=== PATIENT | male | born 1970 ===

== ENCOUNTER 2021-08-23 11:54 | Inpatient (IN) | payer OTHER ==
[2021-08-23] MEDS ORDERED: ONDANSETRON 4 MG ODT TAB PO PRN (18:45)
[2021-08-23] MEDS ORDERED: ALBUTEROL 2.5 MG/3 ML NEBU IH PRN (18:45)
[2021-08-23] MEDS ORDERED: hydrALAZINE 20 MG/1 ML INJ IV PRN (18:45)
[2021-08-24] MEDS: oxyCODONE /ACETAMINOPHEN 5-325MG TAB PO PRN (01:33)
[2021-08-24 07:10] LABS: BUN/Creatinine Ratio 29; Blood Urea Nitrogen 23 mg/dL (9-20); Calcium 8.7 mg/dL (8.4-10.2); Hemolysis Index 0
[2021-08-24 08:44] LABS: Hemoglobin 12.1 gm/dl (11.8-15.2); Mean Corpuscular HGB Conc 34 % (32-34); Mean Corpuscular Volume 78 fl (84-94); Platelet Count 199 K/mm3 (140-440); Red Blood Count 4.62 M/mm3 (3.65-5.03); Red Cell Distribution Width 14.7 % (13.2-15.2)
--- NOTE | 2021-08-24 09:45 | History and Physical Report ---
History of Present Illness Date: 08/24/21 Date of admission: 08/24/21 00:33 Chief Complaint: Right MCA CVA with left hemiparesis History of present illness: 50-year-old male who presented to the outside hospital on 08/17 with complaints of spasms and left-sided facial droop accompanied by slurred speech. Initially his symptoms were considered to be related to an MS exacerbation and he was provided with steroids and discharged home. However he returned same day to the ER for repeated issues with continued facial droop. Further work-up with MRI showed an acute right MCA territory lacunar infarct involving the putamen, periventricular white matter and a portion of the posterior limb of the internal capsule. Given his age, hypercoagulable work-up was performed. Patient has moderate dysarthria and dysphagia. He was placed on a soft mechanical diet with thin liquids. Medication should be crushed in pure patient was started on secondary stroke prevention. He tolerated therapy well and was recommended for acute inpatient rehabilitation. After the patient was medically stabilized they were transferred for further rehabilitation. All available medical records have been reviewed. Plan of care was discussed with patient. He also has a history of multiple sclerosis with neuropathy and continues taking Lyrica at baseline as well as baclofen for occasional spasms. The patient ambulates with a cane or walker depending on his ability for the day. He has recently received a motorized wheelchair however is awaiting moving into a home with a mask from the main in order to be able to utilize that. Patient does state that he has issues with constipation. He just retired recently after 20+ years in the [employer] and does have symptoms associated with PTSD, discussed use of praises in for his vivid nightmares however at this point he is wanting to defer starting this medication. Will monitor for any effect his recovery and address again if needed. Past History Past Medical History: other (Multiple sclerosis, PTSD, asthma) Past Surgical History: No surgical history Social history: , lives with family (In a two-story house, uses a cane and a walker to ambulate, however wheelchair recently received, moving into two- story home with master on the main in the beginning of August.), full code, other (Retired from the [employer] after 20+ years). denies: smoking, alcohol abuse, prescription drug abuse Family history: cancer Medications and Allergies Allergies Allergy/AdvReac Type Severity Reaction Status Date / Time Penicillins Allergy Itching Verified 08/24/21 00:41 Home Medications Medication Instructions Recorded Confirmed Last Taken Type AtorvaSTATin [Lipitor] 40 mg PO QHS 08/24/21 08/24/21 Unknown History Baclofen [Lioresal] 10 mg PO TID 08/24/21 08/24/21 Unknown History Docusate Sodium [Colace CAP] 100 mg PO DAILY 08/24/21 08/24/21 Unknown History Ferrous Sulfate [Iron 325 MG] 325 mg PO DAILY 08/24/21 08/24/21 Unknown History Meloxicam [Mobic] 15 mg PO DAILY 08/24/21 08/24/21 Unknown History Pantoprazole [Protonix TAB] 40 mg PO DAILY 08/24/21 08/24/21 Unknown History Potassium Chloride [Klor-Con] 20 meq PO QDAY 08/24/21 08/24/21 Unknown History Symbicort 160-4.5 Mcg Inhaler 160 mcg INHALATION BID 08/24/21 08/24/21 Unknown History Active Meds: Active Medications Acetaminophen (Acetaminophen 325 Mg Tab) 650 mg PO Q6H PRN PRN Reason: Pain MILD(1-3)/Fever >100.5/PLATT Albuterol (Albuterol 2.5 Mg/3 Ml Nebu) 2.5 mg IH Q4HRT PRN PRN Reason: Shortness Of Breath Albuterol (Albuterol 2.5 Mg/3 Ml Nebu) 2.5 mg IH TIDRT MALIA Arformoterol Tartrate (Arformoterol 15 Mcg/2 Ml Nebu) 15 mcg IH Q12HRT [facility] Aspirin (Aspirin Ec 81 Mg Tab) 81 mg PO QDAY [facility] Atorvastatin Calcium (Atorvastatin 40 Mg Tab) 40 mg PO QHS [facility] Baclofen (Baclofen 10 Mg Tab) 10 mg PO TID [facility] Bisacodyl (Bisacodyl 10 Mg Rect Supp) 10 mg DE QDAY PRN PRN Reason: Constipation Budesonide (Budesonide 0.25 Mg/2 Ml Nebu) 0.25 mg IH Q12HRT [facility] Cholecalciferol (Cholecalciferol (Vit D3) 1000 Unit (25 Mcg) Tab) 1,000 unit PO DAILY [facility] Clopidogrel Bisulfate (Clopidogrel 75 Mg Tab) 75 mg PO QDAY [facility] Docusate Sodium (Docusate Sodium 100 Mg Cap) 100 mg PO BID MALIA Ferrous Sulfate (Ferrous Sulfate 325 Mg Tab) 325 mg PO QDAY [facility] Hydralazine HCl (Hydralazine 20 Mg/1 Ml Inj) 10 mg IV Q4HR PRN PRN Reason: Hypertension Meloxicam (Meloxicam 7.5 Mg Tab) 15 mg PO QDAY [facility] Ondansetron HCl (Ondansetron 4 Mg Odt Tab) 4 mg PO Q8H PRN PRN Reason: Nausea And Vomiting Oxycodone/Acetaminophen (Oxycodone /Acetaminophen 5-325mg Tab) 1 tab PO Q6H PRN PRN Reason: Pain, Moderate (4-6) Last Admin: 08/24/21 01:33 Dose: 1 tab Documented by: Pantoprazole Sodium (Pantoprazole 40 Mg Tab) 40 mg PO QDAC [facility] Polyethylene Glycol (Polyethylene Glycol 3350 17 Gm Powder) 17 gm PO QDAY PRN PRN Reason: Constipation Potassium Chloride (Potassium Chloride Er 20 Meq Tab) 20 meq PO QDAY MALIA Review of Systems All systems: negative (ROS negative for 10 systems except as noted below with pertinent positives and negatives.) Constitutional: fatigue, no fever Ears, nose, mouth and throat: dysphagia, voice changes, no decreased hearing Cardiovascular: lightheadedness, no chest pain, no palpitations, no ra pid/irregular heart beat, no edema Respiratory: no cough with sputum, no shortness of breath Gastrointestinal: constipation, no abdominal pain, no nausea, no vomiting, no diarrhea Genitourinary Male: no dysuria Musculoskeletal: arm numbness/tingling, leg numbness/tingling, gait dysfunction Integumentary: no rash, no pruritis Neurological: paralysis, weakness, parathesias, gait dysfunction, spasticity, other (Orthostatic dizziness) Psychiatric: sleep disturbances (Nightmares associated with PTSD), no memory loss Exam - Exam Narrative exam: MUSCULOSKELETAL SPECIALTY EXAM CONSTITUTIONAL: Well developed, well nourished, appropriately groomed. RIGHT hand dominant. LYMPHATIC: No appreciable abnormalities palpable in neck RESPIRATORY: Clear to auscultation bilaterally, no increased work of breathing CARDIOVASCULAR: Regular Rate/ Rhythm, no swelling, edema or tenderness in BUE or BLE. Pulses palpable in all extremities. All extremities warm. GI: + bowel sounds, soft, NTTP, nondistended. INTEGUMENTARY: Normal, no lesion, rash, masses or bruising noted in extremities. MUSCULOSKELETAL: BUE and BLE normal without defect, crepitus, subluxation, effusion, arthritic changes or TTP. R 4+/5 L 1/5 for shoulder abduction, 3/5 at the biceps/triceps, 2/5 ventilating engineer, 0/5 lower extremity ROM within normal limits on the right, decreased on the left Tone normal on the right, increased on the left with spasticity. MAS 4/5 LLE and 3/5 LUE today NEURO: CN II : Visual de leon full to confrontation CN II, III : PERRL CN III, IV, : EOMI CN V : Facial sensation intact CN VII : Left facial droop CN VIII : Hearing intact to finger rustle CN IX, X : Palate/uvula elevate midline, phonation normal CN XI : Intact shoulder shrug and head rotation CN XII : Tongue protrudes to the left Sensation intact in all extremities without extinction. Reflexes 2+ on the right and 3+ on the left at biceps, brachioradialis and patella. Sustained clonus at left ankle. Coordination intact in RUE, no dysmetria noted. No tremor noted in 4 extremities. Naming and repetition intact. Follows 2 step commands. Aphasia not improved Dysarthria present Dysphagia present Neglect not appreciated POSTURE and GAIT: Sitting posture good. Balance and gait deferred until seen with therapy. PSYCH: Alert, oriented x3, affect appears euthymic. Insight appears intact. - Constitutional Vitals: Vital Signs - 12hr 08/24/21 08/24/21 08/24/21 00:41 00:45 03:41 Temperature 97.4 F L 97.5 F L Pulse Rate 64 58 L Respiratory 16 16 Rate Blood Pressure 98/59 Blood Pressure 111/81 [Right] O2 Sat by Pulse 97 97 97 Oximetry - Labs CBC & Chem 7: 08/24/21 06:39 08/24/21 06:39 Labs: Laboratory Results - last 72 hr 08/24/21 08/24/21 06:39 06:39 WBC 9.5 RBC 4.62 Hgb 12.1 Hct 36.0 MCV 78 L MCH 26 L MCHC 34 RDW 14.7 Plt Count 199 Sodium 139 Potassium 4.0 Chloride 105.9 Carbon Dioxide 26 Anion Gap 11 BUN 23 H Creatinine 0.8 Estimated GFR > 60 BUN/Creatinine Ratio 29 Glucose 82 Calcium 8.7 Assessment and Plan Assessment and plan: Patient was assessed and evaluated for Acute Inpatient Rehab Unit. Due to the patients above-mentioned medical complexity, along with decreased functional mobility and self care, this patient continues to require and be appropriate for a comprehensive, multidisciplinary [id number] rehabilitation program. These needs cannot be met in an outpatient or other less intensive setting. The patient would continue to benefit from skilled therapy intervention for at least 3 hours per day, five days a week, with techn iques specific to the needs of the patient to improve function, activities of daily living, and reintegration into the community. The patient continues to require: -- OT to improve ROM, self-care, and learn use of adaptive equipment -- PT to improve strength and balance, functional transfers, and ambulation with energy conservation techniques to improve functional mobility -- DRYING CAN WORKER to address cognitive deficits and swallowing ability -- 24 hour RN to ensure and prevent skin breakdown, promote progressive independence while ensuring safety, ensure education regarding medications, and incorporation of the rehabilitation at the bedside -- 24 hour Devops Solutions Architect to coordinate this interdisciplinary program, and to manage/prevent complications as a result of the patients medical comorbidities. -Plan of care by day 4 -Weekly team conferences With such a program, there is a reasonable certainty that the goals individualized for this patient can be achieved within the specified length of stay. MCA CVA with left nondominant hemiparesis: Continue Secondary Stroke Prevention (Antithrombotic, Statin (Goal LDL-C <70), BP control (Goal <140/90), GLU control (Goal A1c <7), and lifestyle modification). Monitor for recurrent stroke or post-stroke recrudescence. Continue neuromotor therapy as above. Family training when available. Monitor for post stroke depression, cognitive deficits, seizure, dysphagia, aphasia, shoulder hand syndrome, sensory deficits, spasticity, bowel/bladder deficits, sleep disturbance, vision deficits and DVT. Prognosis for recovery and Secondary Stroke Prevention discussed. Follow up with Neurology. No driving until cleared by Neurologist. Dysarthria: Continue speech therapy to improve patient's ability to better enunciate words and to communicate clearly. Patient currently is understandable. Dysphagia: Continue speech therapy in order to assess patient's ability to improve his ability to swallow and advance diet as able. MBS and e-stim as needed. Spasticity: Continue home baclofen. Look to increase if needed. Continue stretching and teach patient on home stretching program in order to improve ability for range of motion Left foot drop: Continue working with the patient with physical therapy. Will consider utilizing AFO prior to discharge if patient is able to ambulate and he does not recover ability to dorsiflex. Neuropathy: Patient did not tolerate gabapentin previously which has been stopped. Is currently taking Lyrica and will adjust dose as needed. PTSD: Patient states that he is stopped seeing psychiatrist at [facility] and feels like his PTSD is fairly well controlled. He does state that he continues to have nightmares at night which do disturb his sleep at times. We did discuss the use of prazosin however the patient does want to defer starting this currently. We will continue to monitor the patient for any signs of PTSD or nightmares interfering with his recovery and will address the issue again as needed. Constipation: Patient states that he can typically go a week or so without a bowel movement. Has recently had 1. Will schedule bowel meds with hold for loose stools. Asthma: Albuterol tablets not available, have scheduled and as needed nebulizers available. Symbicort is also not on formulary but have ordered our in-house substitute. We will look to reduce this if able. Respiratory consult in place. Multiple sclerosis: Patient recently diagnosed after jail from the [employer]. Receives injections at the [facility]. Noted some neuropathy, weakness, and altered sensation from the MS prior to the stroke. Volume depletion: Patient states that he is not eating or drinking as much as he normally does. BUN is slightly elevated with an elevated BUN/creatinine ratio. Patient was symptomatic this morning with dizziness. Encouraged the patient to improve his oral intake. We will give gentle IV fluids over the weekend and will monitor for improvement. Scratch look to avoid IV fluids if possible by us ing increased amounts of oral hydration in the future. ADL dysfunction: OT will work on improving ability to perform ADLs (including assistive devices) to increase independence and decrease caregiver burden and improve functional transfers and mobility training. Difficulty walking: PT will work on gait training and proper use of assistive devices and advance as appropriate to use of stairs and outside ambulation on uneven surfaces. Unsteadiness on feet: PT will work on improving static and dynamic sitting and standing balance as well as proper use of assistive devices to decrease risk of falls. Abnormality of gait: PT will work to improve safety and efficiency of gait through neuromotor training and gait training along with instruction on proper use of assistive devices. Muscle weakness: PT & OT will work on strengthening exercises to improve functional strength including mixture of closed and open kinetic chain exercises. Debility: PT & OT will work on improving overall functional status to improve participation with ADLs, mobility and social involvement. Fatigue: PT & OT will work on improving endurance through aerobic exercises and therapeutic activity while monitoring patients tolerance for activity and vital signs as needed. DVT ppx: Lovenox Pain: Continue physical modalities in therapy and pain medications as needed to achieve functional pain control. Sleep: Monitor and address as needed. Bowel: Monitor and address as needed. Appetite: Monitor and address as needed. Discharge planning: Pending therapy progress and care plan meeting. Will continue discussion with therapy team, SW, patient and family. Restrictions/ Precautions: Falls, aspiration WB status: FWB Functional Hx: ADLs: Needed some assistance Cognition: Independent Mobility: Cane/RW/motorized wheelchair Barriers to Discharge: Decreased mobility and ability to perform self care, yris nce deficits, weakness Estimated Length of Stay: 1418 days Discharge Destination: Home with family POST ADMISSION PHYSICIAN EVALUATION I have examined the patient and find that functional status, medical condition and appropriateness for IR[facility] admission are essentially unchanged from those described in the preadmission screening. Will monitor for worsening neurologic dysfunction, post stroke depression, shoulder-hand syndrome, spasticity, contracture, DVT/PE, bowel and bladder complications and complications due to PTSD, MS, asthma and electrolyte abnormalities. Will attempt to avoid occurr ence of these issues or treat them if they present themselves.
[2021-08-24] MEDS: FERROUS SULFATE 325 MG TAB PO SCH (10:43)
[2021-08-24] MEDS: BACLOFEN 10 MG TAB PO SCH ×3 (10:43→21:00)
[2021-08-24] MEDS: DOCUSATE SODIUM 100 MG CAP PO SCH ×2 (10:43→21:00)
[2021-08-24] MEDS: ASPIRIN EC 81 MG TAB PO SCH (10:43)
[2021-08-24] MEDS: MELOXICAM 7.5 MG TAB PO SCH (10:43)
[2021-08-24] MEDS: CLOPIDOGREL 75 MG TAB PO SCH (10:43)
[2021-08-24] MEDS: POTASSIUM CHLORIDE ER 20 MEQ TAB PO SCH (10:44)
[2021-08-24] MEDS: PANTOPRAZOLE 40 MG TAB PO SCH (10:44)
[2021-08-24] MEDS: CHOLECALCIFEROL (VIT D3) 1000 UNIT (25 mcg) TAB PO SCH (10:44)
[2021-08-24] MEDS ORDERED: SODIUM CHLORIDE 0.9% 1000 ML 1,000 ML IV SCH (12:00)
[2021-08-24] MEDS: ENOXAPARIN 40 MG/0.4 ML INJ SUB-Q SCH (12:36)
[2021-08-24] MEDS: ARFORMOTEROL 15 MCG/2 ML NEBU IH SCH (14:18)
[2021-08-24] MEDS: ALBUTEROL 2.5 MG/3 ML NEBU IH SCH (14:19)
[2021-08-24] MEDS: BUDESONIDE 0.25 MG/2 ML NEBU IH SCH (14:19)
[2021-08-25] MEDS: ARFORMOTEROL 15 MCG/2 ML NEBU IH SCH ×2 (07:19→10:22)
[2021-08-25] MEDS: BUDESONIDE 0.25 MG/2 ML NEBU IH SCH ×2 (07:20→10:23)
[2021-08-25] MEDS: ALBUTEROL 2.5 MG/3 ML NEBU IH SCH ×3 (07:20→16:04)
[2021-08-25] MEDS: BACLOFEN 10 MG TAB PO SCH ×3 (10:59→20:50)
[2021-08-25] MEDS: POTASSIUM CHLORIDE ER 20 MEQ TAB PO SCH (10:59)
[2021-08-25] MEDS: CHOLECALCIFEROL (VIT D3) 1000 UNIT (25 mcg) TAB PO SCH (10:59)
[2021-08-25] MEDS: CLOPIDOGREL 75 MG TAB PO SCH (10:59)
[2021-08-25] MEDS: DOCUSATE SODIUM 100 MG CAP PO SCH ×2 (10:59→22:32)
[2021-08-25] MEDS: MELOXICAM 7.5 MG TAB PO SCH (10:59)
[2021-08-25] MEDS: PANTOPRAZOLE 40 MG TAB PO SCH (10:59)
[2021-08-25] MEDS: FERROUS SULFATE 325 MG TAB PO SCH (11:00)
[2021-08-25] MEDS: ENOXAPARIN 40 MG/0.4 ML INJ SUB-Q SCH (11:00)
[2021-08-25] MEDS: ASPIRIN EC 81 MG TAB PO SCH (11:00)
[2021-08-26 07:14] LABS: Hematocrit 35.4 % (35.5-45.6); Hemoglobin 12.1 gm/dl (11.8-15.2); Mean Corpuscular HGB Conc 34 % (32-34); Mean Corpuscular Volume 78 fl (84-94); Platelet Count 199 K/mm3 (140-440); Red Blood Count 4.53 M/mm3 (3.65-5.03); Red Cell Distribution Width 14.8 % (13.2-15.2)
[2021-08-26] MEDS: ARFORMOTEROL 15 MCG/2 ML NEBU IH SCH ×2 (07:23→07:43)
[2021-08-26] MEDS: ALBUTEROL 2.5 MG/3 ML NEBU IH SCH ×3 (07:24→16:25)
[2021-08-26] MEDS: BUDESONIDE 0.25 MG/2 ML NEBU IH SCH ×2 (07:24→07:43)
[2021-08-26 07:34] LABS: Blood Urea Nitrogen 21 mg/dL (9-20); Calcium 8.9 mg/dL (8.4-10.2); Hemolysis Index 8
[2021-08-26 07:42] LABS: BUN/Creatinine Ratio 30
[2021-08-26] MEDS: BACLOFEN 10 MG TAB PO SCH ×3 (10:00→22:46)
--- NOTE | 2021-08-26 10:22 | Progress Note ---
Subjective Date of service: 08/26/21 Principal diagnosis: Right MCA CVA with left hemiparesis Interval history: 50-year-old male who presented to the outside hospital on 08/17 with complaints of spasms and left-sided facial droop accompanied by slurred speech. Initially his symptoms were considered to be related to an MS exacerbation and he was provided with steroids and discharged home. However he returned same day to the ER for repeated issues with continued facial droop. Further work-up with MRI showed an acute right MCA territory lacunar infarct involving the putamen, periventricular white matter and a portion of the posterior limb of the internal capsule. Given his age, hypercoagulable work-up was performed. Patient has moderate dysarthria and dysphagia. He was placed on a soft mechanical diet with thin liquids. Medication should be crushed in pure patient was started on secondary stroke prevention. He tolerated therapy well and was recommended for acute inpatient rehabilitation. After the patient was medically stabilized they were transferred for further rehabilitation. All available medical records have been reviewed. Plan of care was discussed with patient. He also has a history of multiple sclerosis with neuropathy and continues taking Lyrica at baseline as well as baclofen for occasional spasms. The patient ambulates with a cane or walker depending on his ability for the day. He has recently received a motorized wheelchair however is awaiting moving into a home with a mask from the main in order to be able to utilize that. Patient does state that he has issues with constipation. He just retired recently after 20+ years in the [employer] and does have symptoms associated with PTSD, discussed use of praises in for his vivid nightmares however at this point he is wanting to defer starting this medication. Will monitor for any effect his recovery and address again if needed. Interval History: Patient is participating in therapy and making reasonable progress. Taking rest breaks as needed. +BM. Denies pain, palpitations, dyspnea, cough, N/V, or joint pain. CVA: Continue secondary stroke prevention, therapy. Monitor for any signs or sym ptoms of stroke recrudescence, shoulder-hand syndrome, worsening spasticity, post stroke depression, sleep disturbance. Patient seemed a little distraught this morning that he was unable to control the left side of his body but again reassured him that recovery will not be a short-term issue. He does have weakness from prior with his MS which will complicate healing somewhat. Dysarthria: Continue speech therapy to improve patient's ability to enunciate and communicate clearly. Dysphagia: Continue speech therapy with MBS/e-stim as needed in order to improve patient's ability to safely swallow and advance diet. Continue modified diet currently. Spasticity: Continue baclofen which patient was on previously for spasticity due to MS. Unclear as to how much of the spasticity is due to the CVA versus MS, patient does state that he had some issues previously with MS but this is worse currently. Left foot drop: Patient will likely need AFO if we are able to get him to the point of walking. Patient does have an electric wheelchair and it is unlikely that prolonged walking would be something that he would undertake going forward at this point. Neuropathy: Stable so far on current dose of Lyrica. Continue to monitor and adjust if needed. Constipation: Improving with bowel meds. Continue to monitor and adjust as Asthma: Seems to be doing okay currently. We will continue medications and adjust as needed. MS: Patient uncertain of type however states that he is [facility] Seems to be a fairly aggressive type with the quickness of his deconditioning. Will concentrate on energy conservation with therapy in order to improve his overall quality of life once he returns home. ADL mobility dysfunction: Continue therapy to improve patient's ability to perform self-care and ADLs as well as improve his mobility and transfers All records, vitals, labs and medications were reviewed. No other issues per patient, nursing or therapy. Objective - Exam Narrative Exam: MUSCULOSKELETAL SPECIALTY EXAM CONSTITUTIONAL: Well developed, well nourished, appropriately groomed. RIGHT hand dominant. RESPIRATORY: Clear to auscultation bilaterally, no increased work of breathing CARDIOVASCULAR: Regular Rate/ Rhythm, no swelling, edema or tenderness in BUE or BLE. All extremities warm. GI: + bowel sounds, soft, NTTP, nondistended. INTEGUMENTARY: Normal, no lesion, rash, masses or bruising noted in extremities. MUSCULOSKELETAL: BUE and BLE normal without defect, crepitus, subluxation, effusion, arthritic changes or TTP. R 4+/5 L 1/5 for shoulder abduction, 3/5 at the biceps/triceps, 2/5 java web services developer, 0/5 lower extremity ROM within normal limits on the right, decreased on the left Tone normal on the right, increased on the left with spasticity. MAS 4/5 LLE and 3/5 LUE NEURO: CN VII : Left facial droop CN XI : Impaired left shoulder shrug CN XII : Tongue protrudes to the left Sensation intact in all extremities without extinction. Sustained clonus at left ankle. No tremor noted in 4 extremities. Naming and repetition intact. Follows 2 step commands. Aphasia not appreciated Dysarthria present Dysphagia present Neglect not appreciated POSTURE and GAIT: Sitting posture fair. Balance and gait deferred until seen with therapy. PSYCH: Alert, oriented x3, affect appears euthymic. Insight appears intact. - Constitutional Vitals: Vital Signs - 12hr 08/26/21 08/26/21 01:45 08:13 Temperature 97.9 F 98.1 F Pulse Rate 65 62 Respiratory 16 18 Rate Blood Pressure 95/64 Blood Pressure 107/67 [Left] O2 Sat by Pulse 95 95 Oximetry - Allied health notes Allied health notes reviewed: nursing, PT, OT FIMS assessment as documented by PT/OT/ST: Locomotion- walk/wheelchair Ambulation Distance 0 - Labs CBC & Chem 7: 08/26/21 06:42 08/26/21 06:42 Labs: Laboratory Results - last 72 hr 08/24/21 08/24/21 08/26/21 06:39 06:39 06:42 WBC 9.5 7.5 RBC 4.62 4.53 Hgb 12.1 12.1 Hct 36.0 35.4 L MCV 78 L 78 L MCH 26 L 27 L MCHC 34 34 RDW 14.7 14.8 Plt Count 199 199 Sodium 139 Potassium 4.0 Chloride 105.9 Carbon Dioxide 26 Anion Gap 11 BUN 23 H Creatinine 0.8 Estimated GFR > 60 BUN/Creatinine Ratio 29 Glucose 82 Calcium 8.7 08/26/21 06:42 WBC RBC Hgb Hct MCV MCH MCHC RDW Plt Count Sodium 139 Potassium 4.2 Chloride 106.8 Carbon Dioxide 28 Anion Gap 8 BUN 21 H Creatinine 0.7 L Estimated GFR > 60 BUN/Creatinine Ratio 30 Glucose 83 Calcium 8.9 Assessment and Plan MCA CVA with left nondominant hemiparesis: Continue Secondary Stroke Prevention (Antithrombotic, Statin (Goal LDL-C <70), BP control (Goal <140/90), GLU control (Goal A1c <7), and lifestyle modification). Monitor for recurrent stroke or post-stroke recrudescence. Continue neuromotor therapy as above. Family training when available. Monitor for post stroke depression, cognitive deficits, seizure, dysphagia, aphasia, shoulder hand syndrome, sensory deficits, spasticity, bowel/bladder deficits, sleep disturbance, vision deficits and DVT. Prognosis for recovery and Secondary Stroke Prevention discussed. Follow up with Neurology. No driving until cleared by Neurologist. Dysarthria: Continue speech therapy to improve patient's ability to better enunciate words and to communicate clearly. Patient currently is understandable. Dysphagia: Continue speech therapy in order to assess patient's ability to improve his ability to swallow and advance diet as able. MBS and e-stim as needed. Spasticity: Continue home baclofen. Look to increase if needed. Continue stretching and teach patient on home stretching program in order to improve ability for range of motion Left foot drop: Continue working with the patient with physical therapy. Will consider utilizing AFO prior to discharge if patient is able to ambulate and he does not recover ability to dorsiflex. Neuropathy: Patient did not tolerate gabapentin previously which has been stopped. Is currently taking Lyrica and will adjust dose as needed. PTSD: Patient states that he is stopped seeing psychiatrist at the [facility] and feels like his PTSD is fairly well controlled. He does state that he continues to have nightmares at night which do disturb his sleep at times. We did discuss the use of prazosin however the patient does want to defer starting this currently. We will continue to monitor the patient for any signs of PTSD or nightmares interfering with his recovery and will address the issue again as needed. Constipation: Patient states that he can typically go a week or so without a bowel movement. Has recently had 1. Will schedule bowel meds with hold for loose stools. Asthma: Albuterol tablets not available, have scheduled and as needed nebulizers available. Symbicort is also not on formulary but have ordered our in-house substitute. We will look to reduce this if able. Respiratory consult in place. Multiple sclerosis: Patient recently diagnosed after fdc from the [employer]. [facility] Noted some neuropathy, weakness, and altered sensation from the MS prior to the stroke. Volume depletion: Patient states that he is not eating or drinking as much as he normally does. BUN is slightly elevated with an elevated BUN/creatinine ratio. Patient was symptomatic this morning with dizziness. Encouraged the patient to improve his oral intake. We will give gentle IV fluids over the weekend and will monitor for improvement. Scratch look to avoid IV fluids if possible by using increased amounts of oral hydration in the future. ADL dysfunction: OT will work on improving ability to perform ADLs (including assistive devices) to increase independence and decrease caregiver burden and improve functional transfers and mobility training. Difficulty walking: PT will work on gait training and proper use of assistive devices and advance as appropriate to use of stairs and outside ambulation on uneven surfaces. Unsteadiness on feet: PT will work on improving static and dynamic sitting and standing balance as well as proper use of assistive devices to decrease risk of falls. Abnormality of gait: PT will work to improve safety and efficiency of gait through neuromotor training and gait training along with instruction on proper use of assistive devices. Muscle weakness: PT & OT will work on strengthening exercises to improve functional strength including mixture of closed and open kinetic chain exercises. Debility: PT & OT will work on improving overall functional status to improve participation with ADLs, mobility and social involvement. Fatigue: PT & OT will work on improving endurance through aerobic exercises and therapeutic activity while monitoring patients tolerance for activity and vital signs as needed. DVT ppx: Lovenox Pain: Continue physical modalities in therapy and pain medications as needed to achieve functional pain control. Sleep: Monitor and address as needed. Bowel: Monitor and address as needed. Appetite: Monitor and address as needed. Discharge planning: Pending therapy progress and care plan meeting. Will c ontinue discussion with therapy team, SW, patient and family. Restrictions/ Precautions: Falls, aspiration WB status: FWB Functional Hx: ADLs: Needed some assistance Cognition: Independent Mobility: Cane/RW/motorized wheelchair Barriers to Discharge: Decreased mobility and ability to perform self care, balance deficits, weakness Estimated Length of Stay: 1418 days Discharge Destination: Home with family
[2021-08-26] MEDS: DOCUSATE SODIUM 100 MG CAP PO SCH ×2 (11:20→22:00)
[2021-08-26] MEDS: FERROUS SULFATE 325 MG TAB PO SCH (11:24)
[2021-08-26] MEDS: MELOXICAM 7.5 MG TAB PO SCH (11:25)
[2021-08-26] MEDS: ASPIRIN EC 81 MG TAB PO SCH (11:25)
[2021-08-26] MEDS: POTASSIUM CHLORIDE ER 20 MEQ TAB PO SCH (11:25)
[2021-08-26] MEDS: CHOLECALCIFEROL (VIT D3) 1000 UNIT (25 mcg) TAB PO SCH (11:25)
[2021-08-26] MEDS: PANTOPRAZOLE 40 MG TAB PO SCH (11:26)
[2021-08-26] MEDS: ENOXAPARIN 40 MG/0.4 ML INJ SUB-Q SCH (11:26)
[2021-08-26] MEDS: CLOPIDOGREL 75 MG TAB PO SCH (11:26)
[2021-08-27] MEDS: ARFORMOTEROL 15 MCG/2 ML NEBU IH SCH ×2 (08:13→09:32)
[2021-08-27] MEDS: ALBUTEROL 2.5 MG/3 ML NEBU IH SCH ×3 (08:13→14:16)
[2021-08-27] MEDS: BUDESONIDE 0.25 MG/2 ML NEBU IH SCH ×2 (08:13→09:35)
--- NOTE | 2021-08-27 09:39 | Progress Note ---
Subjective Date of service: 08/27/21 Principal diagnosis: Right MCA CVA with left hemiparesis Interval history: 50-year-old male who presented to the outside hospital on 08/17 with complaints of spasms and left-sided facial droop accompanied by slurred speech. Initially his symptoms were considered to be related to an MS exacerbation and he was provided with steroids and discharged home. However he returned same day to the ER for repeated issues with continued facial droop. Further work-up with MRI showed an acute right MCA territory lacunar infarct involving the putamen, periventricular white matter and a portion of the posterior limb of the internal capsule. Given his age, hypercoagulable work-up was performed. Patient has moderate dysarthria and dysphagia. He was placed on a soft mechanical diet with thin liquids. Medication should be crushed in pure patient was started on secondary stroke prevention. He tolerated therapy well and was recommended for acute inpatient rehabilitation. After the patient was medically stabilized they were transferred for further rehabilitation. All available medical records have been reviewed. Plan of care was discussed with patient. He also has a history of multiple sclerosis with neuropathy and continues taking Lyrica at baseline as well as baclofen for occasional spasms. The patient ambulates with a cane or walker depending on his ability for the day. He has recently received a motorized wheelchair however is awaiting moving into a home with a mask from the main in order to be able to utilize that. Patient does state that he has issues with constipation. He just retired recently after 20+ years in the [employer] and does have symptoms associated with PTSD, discussed use of praises in for his vivid nightmares however at this point he is wanting to defer starting this medication. Will monitor for any effect his recovery and address again if needed. Interval History: Patient is participating in therapy and making reasonable progress. Taking rest breaks as needed. +BM. Denies pain, palpitations, dyspnea, cough, N/V, or joint pain. CVA: Continue secondary stroke prevention, therapy. Monitor for any signs or sym ptoms of stroke recrudescence, shoulder-hand syndrome, worsening spasticity, post stroke depression, sleep disturbance. He does have weakness from prior with his MS which will complicate healing somewhat. Dysarthria: Speech has cleared up and BREAKDOWN WORKER has deferred adding to caseload since he is close to baseline now. Dysphagia: BREAKDOWN WORKER evaluated speech and is cleared for regular diet with no sides of aspiration noted. We will continue to monitor for any changes going forward. Spasticity: Continue baclofen which patient was on previously for spasticity due to MS. Unclear as to how much of the spasticity is due to the CVA versus MS, patient does state that he had some issues previously with MS but this is worse currently. Left foot drop: Patient will likely need AFO if we are able to get him to the point of walking. Patient does have an electric wheelchair and it is unlikely that prolonged walking would be something that he would undertake going forward at this point. Neuropathy: Stable so far on current dose of Lyrica. Continue to monitor and adjust if needed. Constipation: Improving with bowel meds. Continue to monitor and adjust as Asthma: Seems to be doing okay currently. We will continue medications and adjust as needed. MS: Patient uncertain of type however states that he is receiving injections from his physicians at the [facility]. Seems to be a fairly aggressive type with the quickness of his deconditioning. Will concentrate on energy conservation with therapy in order to improve his overall quality of life once he returns home. ADL mobility dysfunction: Continue therapy to improve patient's ability to perform self-care and ADLs as well as improve his mobility and transfers All records, vitals, labs and medications were reviewed. No other issues per patient, nursing or therapy. Patient discussed during team conference. Participating and making progress. Has poor trunk control and weakness, some of which may be pre-existing. We will continue to work with the patient to improve his ability to perform ADLs and self-care as well as remain mobile in the bed and for transfers. Would like to get the patient to the point that he is able to ambulate for short distances in the household if at all possible. We have the ability to keep the patient for up to 30 days, at this point will likely work with him for another 2 to 3 weeks depending on his continued progress. Objective - Exam Narrative Exam: MUSCULOSKELETAL SPECIALTY EXAM CONSTITUTIONAL: Well developed, well nourished, appropriately groomed. RIGHT hand dominant. RESPIRATORY: Clear to auscultation bilaterally, no increased work of breathing CARDIOVASCULAR: Regular Rate/ Rhythm, no swelling, edema or tenderness in BUE or BLE. All extremities warm. GI: + bowel sounds, soft, NTTP, nondistended. INTEGUMENTARY: Normal, no lesion, rash, masses or bruising noted in extremities. MUSCULOSKELETAL: BUE and BLE normal without defect, crepitus, subluxation, effusion, arthritic changes or TTP. R 4+/5 L 1/5 for shoulder abduction, 3/5 at the biceps/triceps, 2/5 edge bonder, 0/5 lower extremity ROM within normal limits on the right, decreased on the left Tone normal on the right, increased on the left with variable spasticity. MAS 3/5 LLE and 2/5 LUE NEURO: CN VII : Left facial droop CN XI : Impaired left shoulder shrug CN XII : Tongue protrudes to the left Sensation intact in all extremities without extinction. Sustained clonus at left ankle. No tremor noted in 4 extremities. Naming and repetition intact. Follows 2 step commands. Aphasia not appreciated Dysarthria present Dysphagia present Neglect not appreciated POSTURE and GAIT: Sitting posture fair. Balance and gait deferred until seen with therapy. PSYCH: Alert, oriented x3, affect appears euthymic. Insight appears intact. - Constitutional Vitals: Vital Signs - 12hr 08/26/21 08/27/21 08/27/21 22:00 03:51 08:11 Temperature 98.1 F 98.0 F Pulse Rate 63 63 Respiratory 18 18 18 Rate Blood Pressure 100/70 90/57 O2 Sat by Pulse 98 96 97 Oximetry - Allied health notes Allied health notes reviewed: nursing, PT, ST, OT FIMS assessment as documented by PT/OT/ST: Locomotion- walk/wheelchair Ambulation Distance 0 - Labs CBC & Chem 7: 08/26/21 06:42 08/26/21 06:42 Labs: Laboratory Results - last 72 hr 08/26/21 08/26/21 06:42 06:42 WBC 7.5 RBC 4.53 Hgb 12.1 Hct 35.4 L MCV 78 L MCH 27 L MCHC 34 RDW 14.8 Plt Count 199 Sodium 139 Potassium 4.2 Chloride 106.8 Carbon Dioxide 28 Anion Gap 8 BUN 21 H Creatinine 0.7 L Estimated GFR > 60 BUN/Creatinine Ratio 30 Glucose 83 Calcium 8.9 Assessment and Plan MCA CVA with left nondominant hemiparesis: Continue Secondary Stroke Prevention (Antithrombotic, Statin (Goal LDL-C <70), BP control (Goal <140/90), GLU control (Goal A1c <7), and lifestyle modification). Monitor for recurrent stroke or post-stroke recrudescence. Continue neuromotor therapy as above. Family training when available. Monitor for post stroke depression, cognitive deficits, seizure, dysphagia, aphasia, shoulder hand syndrome, sensory deficits, spasticity, bowel/bladder deficits, sleep disturbance, vision deficits and DVT. Prognosis for recovery and Secondary Stroke Prevention discussed. Follow up with Neurology. No driving until cleared by Neurologist. Dysarthria: BREAKDOWN WORKER has signed off, patient seems to be close to baseline. Dysphagia: BREAKDOWN WORKER is signed off, patient's dysphagia has improved and he is able to tolerate regular foods without any signs of aspiration. Continue to monitor for aspiration and reconsult if needed. Spasticity: Continue home baclofen. Look to increase if needed. Continue stretching and teach patient on home stretching program in order to improve ability for range of motion Left foot drop: Continue working with the patient with physical therapy. Will consider utilizing AFO prior to discharge if patient is able to ambulate and he does not recover ability to dorsiflex. Neuropathy: Patient did not tolerate gabapentin previously which has been stopped. Is currently taking Lyrica and will adjust dose as needed. PTSD: Patient states that he is stopped seeing psychiatrist at the [facility] and feels like his PTSD is fairly well controlled. He does state that he continues to have nightmares at night which do disturb his sleep at times. We did discuss the use of prazosin however the patient does want to defer starting this currently. We will continue to monitor the patient for any signs of PTSD or nightmares interfering with his recovery and will address the issue again as needed. Constipation: Patient states that he can typically go a week or so without a katia wel movement. Has recently had 1. Will schedule bowel meds with hold for loose stools. Asthma: Albuterol tablets not available, have scheduled and as needed nebulizers available. Symbicort is also not on formulary but have ordered our in-house substitute. We will look to reduce this if able. Respiratory consult in place. Multiple sclerosis: Patient recently diagnosed after jail from the [employer]. [facility] Noted some neuropathy, weakness, and altered sensation from the MS prior to the stroke. Volume depletion: Patient states that he is not eating or drinking as much as he normally does. BUN is slightly elevated with an elevated BUN/creatinine ratio. Patient was symptomatic this morning with dizziness. Encouraged the patient to improve his oral intake. We will give gentle IV fluids over the weekend and will monitor for improvement. Scratch look to avoid IV fluids if possible by using increased amounts of oral hydration in the future. ADL dysfunction: OT will work on improving ability to perform ADLs (including assistive devices) to increase independence and decrease caregiver burden and improve functional transfers and mobility training. Difficulty walking: PT will work on gait training and proper use of assistive devices and advance as appropriate to use of stairs and outside ambulation on uneven surfaces. Unsteadiness on feet: PT will work on improving static and dynamic sitting and standing balance as well as proper use of assistive devices to decrease risk of falls. Abnormality of gait: PT will work to improve safety and efficiency of gait through neuromotor training and gait training along with instruction on proper use of assistive devices. Muscle weakness: PT & OT will work on strengthening exercises to improve functional strength including mixture of closed and open kinetic chain exercises. Debility: PT & OT will work on improving overall functional status to improve participation with ADLs, mobility and social involvement. Fatigue: PT & OT will work on improving endurance through aerobic exercises and therapeutic activity while monitoring patients tolerance for activity and vital signs as needed. DVT ppx: Lovenox Pain: Continue physical modalities in therapy and pain medications as needed to achieve functional pain control. Sleep: Monitor and address as needed. Bowel: Monitor and address as needed. Appetite: Monitor and address as needed. Discharge planning: Pending therapy progress and care plan meeting. Will continue discussion with therapy team, SW, patient and family. Restrictions/ Precautions: Falls, aspiration WB status: FWB Functional Hx: ADLs: Needed some assistance Cognition: Independent Mobility: Cane/RW/motorized wheelchair Barriers to Discharge: Decreased mobility and ability to perform self care, balance deficits, weakness Estimated Length of Stay: 1418 days Discharge Destination: Home with family
[2021-08-27] MEDS: BACLOFEN 10 MG TAB PO SCH ×3 (10:16→21:35)
[2021-08-27] MEDS: FERROUS SULFATE 325 MG TAB PO SCH (10:16)
[2021-08-27] MEDS: DOCUSATE SODIUM 100 MG CAP PO SCH ×3 (10:16→22:59)
[2021-08-27] MEDS: CHOLECALCIFEROL (VIT D3) 1000 UNIT (25 mcg) TAB PO SCH (10:16)
[2021-08-27] MEDS: ENOXAPARIN 40 MG/0.4 ML INJ SUB-Q SCH (10:16)
[2021-08-27] MEDS: PANTOPRAZOLE 40 MG TAB PO SCH (10:16)
[2021-08-27] MEDS: ASPIRIN EC 81 MG TAB PO SCH (10:16)
[2021-08-27] MEDS: MELOXICAM 7.5 MG TAB PO SCH (10:16)
[2021-08-27] MEDS: CLOPIDOGREL 75 MG TAB PO SCH (10:17)
--- NOTE | 2021-08-27 10:33 | IRU Plan of Care ---
Interdisciplinary Plan of Care - IP IRU INTERDISCIPLINARY PLAN: [facility] Inpatient Rehab Unit Plan of Care IRU Interdisciplinary Care Plan Start: 08/24/21 01:09 Freq: Status: Active Protocol: Document 08/27/21 09:37 AB (Rec: 08/27/21 09:43 AB [id number]) Interdisciplinary Problem List Interdisciplinary Problem List Interdisciplinary Problem List Impaired Eating/Swallowing, Query Text:Answers will Trigger Problems Impaired Bathing/Grooming, and Outcomes on Worklist. Impaired Dressing,Impaired Mobility,Impaired Transfers, Impaired Toileting,Impaired Safety IRU Interdisciplinary Care Plan Therapy Services Therapy Services Will Include: Physical Therapy,Occupational Query Text:Patient will be seen for a Therapy minimum of 3 hours of daily therapy 5 out of 7 days a week. Therapy intensity may be adjusted within a 7 consecutive day period to effectively serve the individual needs of the patient. Treatment Frequency/Intensity/Duration Treatment Frequency 3 hours/ day Treatment Intensity 5x/ week Treatment Duration 10-14 days Problem Area: Eating/Swallowing Eating/Swallowing Outcomes Feed Self Eating/Swallowing Interventions ADL Training,Patient/Caregiver Education Problem Area: Bathing/Grooming Bathing/Grooming Outcomes Improve [place] w/ Grooming,Improve [place] w/ Bathing Bathing/Grooming Interventions ADL Training,Use of Assistive Devices,Therapeutic Exercise, Therapeutic Activity, Neuromuscular Re-Education, Balance Work,Activity Tolerance Work,Patient/ Caregiver Education Problem Area: Dressing Dressing Outcomes Improve [place] w/ UB Dressing,Improve [place] w/ LB Dressing Dressing Interventions ADL Training,Use of Assistive Devices,Neuromuscular Re- Education,Therapeutic Exercise ,Balance Work,Modalities, Patient/Caregiver Education Problem Area: Mobility Mobility Outcomes Improve [place] w/ Bed Mobility,Improve [place] w/ Ambulation,Improve [place] w/ Stairs/Curb, Improve [place] w/ Wheelchair Mobility Interventions Therapeutic Exercise, Neuromuscular Re-Ed.,Activity Tolerance Work,Modalities,Use of Assistive Devices,Patient/ Caregiver Education,Bed Mobility Work,Gait Training,W/ C Mobility Work Problem Area: Transfers Transfers Outcomes Improve [place] w/ Bed Transfers,Improve [place] w/ Toilet Transfers,Improve [place] w/ Tub/Shower Transfers,Improve [place] w/ Car Transfers Transfers Interventions Transfer Training,Therapeutic Exercise,Neuromuscular Re- Education,Activity Tolerance Work,Use of Assistive Devices, Patient/Caregiver Education Problem Area: Bowel/Bladder Managment Bowel/Bladder Outcomes Continent of Bladder Bowel/Bladder Interventions Bladder Training Program,Use of Assistive Devices Problem Area: Toileting Toileting Outcomes Improve [place] w/ Toileting Toileting Interventions ADL Training,Use of Assistive Devices,Patient/Caregiver Education Problem Area: Nutrition Nutrition Outcomes Nutrition Interventions Problem Area: Comprehension Comprehension Outcomes Comprehension Interventions Problem Area: Expression Expression Outcomes Expression Interventions Problem Area: Problem Solving Problem Solving Outcomes Problem Solving Interventions Problem Area: Memory Memory Outcomes Memory Interventions Problem Area: Pain Management Pain Management Outcomes Pain Management Interventions Problem Area: Knowledge Deficits Knowledge Deficits Outcomes Knowledge Deficits Interventions Problem Area: Skin/Tissue Integrity Skin/Tissue Integrity Outcomes Skin/Tissue Integrity Interventions Problem Area: Social Interaction Social Interaction Outcomes Social Interaction Interventions Problem Area: Adjustment to Disability Adjustment to Disability Outcomes Adjustment to Disability Interventions Problem Area: Discharge Concerns Discharge Concerns Outcomes Discharge w/ Necessary Equipment,Have Home Health/ Outpatient Services Discharge Concerns Interventions Discharge Planning,Equipment Assessment, Acquisition and Placement,Family/Caregiver Training Problem Area: Community Reintegration Community Reintegration Outcomes Community Reintegration Interventions Problem Area: Home Management Home Management Outcomes Home Management Interventions Problem Area: Safety Safety Outcomes Demonstrate Good Safety w/ Transfers/Mobility Safety Interventions Identify Fall Risk Problem Area: Medication Education Medication Education Outcomes Medication Education Interventions Problem Area: Diabetes Education Diabetes Education Outcomes Diabetes Education Interventions Problem Area: Oxygenation Oxygenation Outcomes Oxygenation Interventions Problem Area: Cardiovascular Cardiovascular Outcomes Cardiovascular Interventions Physician Only Medical Prognosis and Rehabilitation good prognosis, fair rehab potential Potential (Completed by Physician) This plan of care has been developed based on the findings from the pre- admission assessment, post admission physician evaluation, information gathered from the assessments from all therapy disciplines and other pertinent clinicians. The plan of care has been reviewed and discussed in collaboration with the interdisciplinary team. The plan of care will be reviewed and updated at least weekly.
[2021-08-27] MEDS: POTASSIUM CHLORIDE ER 20 MEQ TAB PO SCH (13:29)
[2021-08-28] MEDS: BUDESONIDE 0.25 MG/2 ML NEBU IH SCH ×3 (03:45→20:07)
[2021-08-28] MEDS: ARFORMOTEROL 15 MCG/2 ML NEBU IH SCH ×3 (03:45→20:06)
[2021-08-28] MEDS: ALBUTEROL 2.5 MG/3 ML NEBU IH SCH (03:45)
[2021-08-28] MEDS: BACLOFEN 10 MG TAB PO SCH ×3 (08:17→21:00)
--- NOTE | 2021-08-28 09:18 | Progress Note ---
Subjective Date of service: 08/28/21 Principal diagnosis: Right MCA CVA with left hemiparesis Interval history: 50-year-old male who presented to the outside hospital on 08/17 with complaints of spasms and left-sided facial droop accompanied by slurred speech. Initially his symptoms were considered to be related to an MS exacerbation and he was provided with steroids and discharged home. However he returned same day to the ER for repeated issues with continued facial droop. Further work-up with MRI showed an acute right MCA territory lacunar infarct involving the putamen, periventricular white matter and a portion of the posterior limb of the internal capsule. Given his age, hypercoagulable work-up was performed. Patient has moderate dysarthria and dysphagia. He was placed on a soft mechanical diet with thin liquids. Medication should be crushed in pure patient was started on secondary stroke prevention. He tolerated therapy well and was recommended for acute inpatient rehabilitation. After the patient was medically stabilized they were transferred for further rehabilitation. All available medical records have been reviewed. Plan of care was discussed with patient. He also has a history of multiple sclerosis with neuropathy and continues taking Lyrica at baseline as well as baclofen for occasional spasms. The patient ambulates with a cane or walker depending on his ability for the day. He has recently received a motorized wheelchair however is awaiting moving into a home with a mask from the main in order to be able to utilize that. Patient does state that he has issues with constipation. He just retired recently after 20+ years in the [employer] and does have symptoms associated with PTSD, discussed use of praises in for his vivid nightmares however at this point he is wanting to defer starting this medication. Will monitor for any effect his recovery and address again if needed. Interval History: Patient is participating in therapy and making reasonable progress. Taking rest breaks as needed. +BM. Denies pain, palpitations, dyspnea, cough, N/V, or joint pain. Overall, patient does have good outlook and attitude and is working hard with therapy to initiate improvement. Had a prolonged discussion with the yesterday concerning the patient's condition, appears that he is little worse than baseline but previous to the stroke was not able to do much walking. CVA: Continue secondary stroke prevention, therapy. Monitor for any signs or symptoms of stroke recrudescence, shoulder-hand syndrome, worsening spasticity, post stroke depression, sleep disturbance. He does have weakness from prior with his MS which will complicate healing somewhat. Spasticity: Continue baclofen which patient was on previously for spasticity due to MS. Unclear as to how much of the spasticity is due to the CVA versus MS, patient does state that he had some issues previously with MS but this is worse currently. Left foot drop: Patient will likely need AFO if we are able to get him to the point of walking. Patient does have an electric wheelchair and it is unlikely that prolonged walking would be something that he would undertake going forward at this point. Neuropathy: Stable so far on current dose of Lyrica. Continue to monitor and adjust if needed. Constipation: Improving with bowel meds. Continue to monitor and adjust as needed. Patient is having bowel movements and has requested bowel meds to be held due to decreased ability to control Asthma: Seems to be doing okay currently. We will continue medications and adjust as needed. MS: Patient uncertain of type however states that he is receiving [facility]. Seems to be a fairly aggressive type with the quickness of his deconditioning. Will concentrate on energy conservation with therapy in order to improve his overall quality of life once he returns home. ADL mobility dysfunction: Continue therapy to improve patient's ability to perform self-care and ADLs as well as improve his mobility and transfers. Patient was able to walk in the hallway utilizing the rail with assistance All records, vitals, labs and medications were reviewed. No other issues per patient, nursing or therapy. Objective - Exam Narrative Exam: MUSCULOSKELETAL SPECIALTY EXAM CONSTITUTIONAL: Well developed, well nourished, appropriately groomed. RIGHT hand dominant. RESPIRATORY: Clear to auscultation bilaterally, no increased work of breathing CARDIOVASCULAR: Regular Rate/ Rhythm, no swelling, edema or tenderness in BUE or BLE. All extremities warm. GI: + bowel sounds, soft, NTTP, nondistended. INTEGUMENTARY: Normal, no lesion, rash, masses or bruising noted in extremities. MUSCULOSKELETAL: BUE and BLE normal without defect, crepitus, subluxation, effusion, arthritic changes or TTP. R 4+/5 L 1/5 for shoulder abduction, 3/5 at the biceps/triceps, 2/5 sew on operator, 0/5 lower extremity ROM within normal limits on the right, decreased on the left Tone normal on the right, increased on the left with variable spasticity. MAS 3/5 LLE and 2/5 LUE NEURO: CN VII : Left facial droop CN XI : Impaired left shoulder shrug CN XII : Tongue protrudes to the left Sensation intact in all extremities without extinction. Sustained clonus posture left ankle. No tremor noted in 4 extremities. Naming and repetition intact. Follows 2 step commands. Aphasia not appreciated Dysarthria present Dysphagia present Neglect not appreciated POSTURE and GAIT: Sitting posture fair. Balance and gait fair with assistance to advance LLE and cues to correct posture. PSYCH: Alert, oriented x3, affect appears euthymic. Insight appears intact. - Constitutional Vitals: Vital Signs - 12hr 08/27/21 08/27/21 08/28/21 22:00 22:54 03:49 Temperature 98.0 F 97.5 F L Pulse Rate 62 74 Pulse Rate [ 64 Right Radial] Respiratory 18 16 16 Rate Blood Pressure 121/80 110/76 O2 Sat by Pulse 98 96 93 Oximetry 08/28/21 08:29 Temperature 97.4 F L Pulse Rate 74 Pulse Rate [ Right Radial] Respiratory 18 Rate Blood Pressure 99/73 O2 Sat by Pulse 98 Oximetry - Allied health notes Allied health notes reviewed: nursing, PT, OT FIMS assessment as documented by PT/OT/ST: Locomotion- walk/wheelchair Ambulation Distance 0 - Labs CBC & Chem 7: 08/26/21 06:42 08/26/21 06:42 Labs: Laboratory Results - last 72 hr 08/26/21 08/26/21 06:42 06:42 WBC 7.5 RBC 4.53 Hgb 12.1 Hct 35.4 L MCV 78 L MCH 27 L MCHC 34 RDW 14.8 Plt Count 199 Sodium 139 Potassium 4.2 Chloride 106.8 Carbon Dioxide 28 Anion Gap 8 BUN 21 H Creatinine 0.7 L Estimated GFR > 60 BUN/Creatinine Ratio 30 Glucose 83 Calcium 8.9 Assessment and Plan MCA CVA with left nondominant hemiparesis: Continue Secondary Stroke Prevention (Antithrombotic, Statin (Goal LDL-C <70), BP control (Goal <140/90), GLU control (Goal A1c <7), and lifestyle modification). Monitor for recurrent stroke or post-stroke recrudescence. Continue neuromotor therapy as above. Family training when available. Monitor for post stroke depression, cognitive deficits, seizure, dysphagia, aphasia, shoulder hand syndrome, sensory deficits, spasticity, bowel/bladder deficits, sleep disturbance, vision deficits and DVT. Prognosis for recovery and Secondary Stroke Prevention discussed. Follow up with Neurology. No driving until cleared by Neurologist. Dysarthria: DEMURRAGE AGENT has signed off, patient seems to be close to baseline. Dysphagia: DEMURRAGE AGENT is signed off, patient's dysphagia has improved and he is able to tolerate regular foods without any signs of aspiration. Continue to monitor for aspiration and reconsult if needed. Spasticity: Continue home baclofen. Look to increase if needed. Continue stretching and teach patient on home stretching program in order to improve ability for range of motion. Patient is performing stretching routines in the room which she states is helping with tone Left foot drop: Continue working with the patient with physical therapy. Will consider utilizing AFO prior to discharge if patient is able to ambulate and he does not recover ability to dorsiflex. Neuropathy: Patient did not tolerate gabapentin previously which has been stopped. Is currently taking Lyrica and will adjust dose as needed. PTSD: Patient states that he is stopped seeing psychiatrist at the [facility] and feels like his PTSD is fairly well controlled. He does state that he continues to have nightmares at night which do disturb his sleep at times. We did discuss the use of prazosin however the patient does want to defer starting this currently. We will continue to monitor the patient for any signs of PTSD or nightmares interfering with his recovery and will address the issue again as needed. Constipation: Patient states that he can typically go a week or so without a bowel movement. Has recently had 1. Will schedule bowel meds with hold for loose stools. Asthma: Albuterol tablets not available, have scheduled and as needed nebulizers available. Symbicort is also not on formulary but have ordered our in-house substitute. We will look to reduce this if able. Respiratory consult in place. Multiple sclerosis: Patient recently diagnosed after [facility]p from the [employer]. [facility] Noted some neuropathy, weakness, and altered sensation from the MS prior to the stroke. Volume depletion: Patient states that he is not eating or drinking as much as he normally does. . look to avoid IV fluids if possible by using increased amounts of oral hydration in the future. ADL dysfunction: OT will work on improving ability to perform ADLs (including assistive devices) to increase independence and decrease caregiver burden and improve functional transfers and mobility training. Difficulty walking: PT will work on gait training and proper use of assistive devices and advance as appropriate to use of stairs and outside ambulation on uneven surfaces. Unsteadiness on feet: PT will work on improving static and dynamic sitting and standing balance as well as proper use of assistive devices to decrease risk of falls. Abnormality of gait: PT will work to improve safety and efficiency of gait through neuromotor training and gait training along with instruction on proper use of assistive devices. Muscle weakness: PT & OT will work on strengthening exercises to improve functional strength including mixture of closed and open kinetic chain exercises. Debility: PT & OT will work on improving overall functional status to improve participation with ADLs, mobility and social involvement. Fatigue: PT & OT will work on improving endurance through aerobic exercises and therapeutic activity while monitoring patients tolerance for activity and vital signs as needed. DVT ppx: Lovenox Pain: Continue physical modalities in therapy and pain medications as needed to achieve functional pain control. Sleep: Monitor and address as needed. Bowel: Monitor and address as needed. Appetite: Monitor and address as needed. Discharge planning: Pending therapy progress and care plan meeting. Will continue discussion with therapy team, SW, patient and family. Restrictions/ Precautions: Falls, aspiration WB status: FWB Functional Hx: ADLs: Needed some assistance Cognition: Independent Mobility: Cane/RW/motorized wheelchair Barriers to Discharge: Decreased mobility and ability to perform self care, balance deficits, weakness Estimated Length of Stay: 1418 days Discharge Destination: Home with family
[2021-08-28] MEDS: DOCUSATE SODIUM 100 MG CAP PO SCH ×2 (13:18→20:59)
[2021-08-28] MEDS: ENOXAPARIN 40 MG/0.4 ML INJ SUB-Q SCH (13:18)
[2021-08-28] MEDS: FERROUS SULFATE 325 MG TAB PO SCH (13:18)
[2021-08-28] MEDS: ASPIRIN EC 81 MG TAB PO SCH (13:19)
[2021-08-28] MEDS: MELOXICAM 7.5 MG TAB PO SCH (13:19)
[2021-08-28] MEDS: CLOPIDOGREL 75 MG TAB PO SCH (13:20)
[2021-08-28] MEDS: CHOLECALCIFEROL (VIT D3) 1000 UNIT (25 mcg) TAB PO SCH (13:20)
[2021-08-28] MEDS: PANTOPRAZOLE 40 MG TAB PO SCH (13:30)
[2021-08-29] MEDS: oxyCODONE /ACETAMINOPHEN 5-325MG TAB PO PRN (09:07)
[2021-08-29] MEDS: MELOXICAM 7.5 MG TAB PO SCH (09:07)
[2021-08-29] MEDS: PANTOPRAZOLE 40 MG TAB PO SCH (09:07)
[2021-08-29] MEDS: CHOLECALCIFEROL (VIT D3) 1000 UNIT (25 mcg) TAB PO SCH (09:08)
[2021-08-29] MEDS: FERROUS SULFATE 325 MG TAB PO SCH (09:08)
[2021-08-29] MEDS: ENOXAPARIN 40 MG/0.4 ML INJ SUB-Q SCH (09:08)
[2021-08-29] MEDS: BACLOFEN 10 MG TAB PO SCH ×3 (09:08→19:31)
[2021-08-29] MEDS: DOCUSATE SODIUM 100 MG CAP PO SCH ×2 (09:08→21:47)
[2021-08-29] MEDS: CLOPIDOGREL 75 MG TAB PO SCH (09:08)
--- NOTE | 2021-08-29 09:29 | Progress Note ---
Subjective Date of service: 08/29/21 Principal diagnosis: Right MCA CVA with left hemiparesis Interval history: 50-year-old male who presented to the outside hospital on 08/17 with complaints of spasms and left-sided facial droop accompanied by slurred speech. Initially his symptoms were considered to be related to an MS exacerbation and he was provided with steroids and discharged home. However he returned same day to the ER for repeated issues with continued facial droop. Further work-up with MRI showed an acute right MCA territory lacunar infarct involving the putamen, periventricular white matter and a portion of the posterior limb of the internal capsule. Given his age, hypercoagulable work-up was performed. Patient has moderate dysarthria and dysphagia. He was placed on a soft mechanical diet with thin liquids. Medication should be crushed in pure patient was started on secondary stroke prevention. He tolerated therapy well and was recommended for acute inpatient rehabilitation. After the patient was medically stabilized they were transferred for further rehabilitation. All available medical records have been reviewed. Plan of care was discussed with patient. He also has a history of multiple sclerosis with neuropathy and continues taking Lyrica at baseline as well as baclofen for occasional spasms. The patient ambulates with a cane or walker depending on his ability for the day. He has recently received a motorized wheelchair however is awaiting moving into a home with a mask from the main in order to be able to utilize that. Patient does state that he has issues with constipation. He just retired recently after 20+ years in the [employer] and does have symptoms associated with PTSD, discussed use of praises in for his vivid nightmares however at this point he is wanting to defer starting this medication. Will monitor for any effect his recovery and address again if needed. Interval History: Patient is participating in therapy and making reasonable progress. Taking rest breaks as needed. +BM. Denies pain, palpitations, dyspnea, cough, N/V, or joint pain. Overall, patient does have good outlook and attitude and is working hard with therapy to initiate improvement. Spasticity in upper extremity improved on today's exam. Patient continues to work with therapy and is making progress towards goals of being able to return home. CVA: Continue secondary stroke prevention, therapy. Monitor for any signs or symptoms of stroke recrudescence, shoulder-hand syndrome, worsening spasticity, post stroke depression, sleep disturbance. He does have weakness from prior with his MS which will complicate healing somewhat. Spasticity: Continue baclofen which patient was on previously for spasticity due to MS. Unclear as to how much of the spasticity is due to the CVA versus MS, patient does state that he had some issues previously with MS but this is worse currently. Encouraged the patient to continue stretching while he is not in th erapy. Demonstrated to him the difference between tone and spasticity and how to properly perform prolonged stretches Left foot drop: Patient is walking more with therapy. We will likely go ahead a nd move forward with an AFO. Hopefully this is something that he can continue at home and not rely solely on the motorized wheelchair until his endurance is a limiting factor based on the progression of his MS Neuropathy: Stable so far on current dose of Lyrica. Continue to monitor and adjust if needed. Constipation: Improving with bowel meds. Continue to monitor and adjust as needed. Patient is having bowel movements and has requested bowel meds to be held due to decreased ability to control Asthma: Seems to be doing okay currently. We will continue medications and adjust as needed. MS: Patient uncertain of type however states that he is receiving injections from his physicians at the [facility]. Seems to be a fairly aggressive type with the quickness of his deconditioning. Will concentrate on energy conservation with therapy in order to improve his overall quality of life once he returns home. ADL mobility dysfunction: Continue therapy to improve patient's ability to perform self-care and ADLs as well as improve his mobility and transfers. Patient was able to walk in the hallway utilizing the rail with assistance All records, vitals, labs and medications were reviewed. No other issues per patient, nursing or therapy. Objective - Exam Narrative Exam: MUSCULOSKELETAL SPECIALTY EXAM CONSTITUTIONAL: Well developed, well nourished, appropriately groomed. RIGHT hand dominant. RESPIRATORY: Clear to auscultation bilaterally, no increased work of breathing CARDIOVASCULAR: Regular Rate/ Rhythm, no swelling, edema or tenderness in BUE or BLE. All extremities warm. GI: + bowel sounds, soft, NTTP, nondistended. INTEGUMENTARY: Normal, no lesion, rash, masses or bruising noted in extremities. MUSCULOSKELETAL: BUE and BLE normal without defect, crepitus, subluxation, effusion, arthritic changes or TTP. R 4+/5 L 1/5 for shoulder abduction, 3/5 at the biceps/triceps, 2/5 citrix engineer, 0/5 lower extremity ROM within normal limits on the right, decreased on the left Tone normal on the right, increased on the left with variable spasticity. MAS 3/5 LLE and 2/5 LUE NEURO: CN VII : Left facial droop CN XI : Impaired left shoulder shrug, improving CN XII : Tongue protrudes to the left Sensation intact in all extremities without extinction. Sustained clonus left ankle. No tremor noted in 4 extremities. Naming and repetition intact. Follows 2 step commands. Aphasia not appreciated Dysarthria resolved Dysphagia resolved Neglect not appreciated POSTURE and GAIT: Sitting posture fair. Balance and gait fair with assistance to advance LLE and cues to correct posture. PSYCH: Alert, oriented x3, affect appears euthymic. Insight appears intact. - Constitutional Vitals: Vital Signs - 12hr 08/28/21 08/29/21 23:31 03:58 Temperature 98.2 F 98.0 F Pulse Rate 58 L 64 Respiratory 16 14 Rate Blood Pressure 104/62 119/62 O2 Sat by Pulse 99 95 Oximetry - Allied health notes Allied health notes reviewed: nursing, PT, OT FIMS assessment as documented by PT/OT/ST: Locomotion- walk/wheelchair Ambulation Distance 0 - Labs CBC & Chem 7: 08/26/21 06:42 08/26/21 06:42 Assessment and Plan MCA CVA with left nondominant hemiparesis: Continue Secondary Stroke Prevention (Antithrombotic, Statin (Goal LDL-C <70), BP control (Goal <140/90), GLU control (Goal A1c <7), and lifestyle modification). Monitor for recurrent stroke or post-stroke recrudescence. Continue neuromotor therapy as above. Family training when available. Monitor for post stroke depression, cognitive deficits, seizure, dysphagia, aphasia, shoulder hand syndrome, sensory deficits, spasticity, bowel/bladder deficits, sleep disturbance, vision deficits and DVT. Prognosis for recovery and Secondary Stroke Prevention discussed. Follow up with Neurology. No driving until cleared by Neurologist. Dysarthria: TECHNOLOGY LAB TEACHER has signed off, patient seems to be close to baseline. Dysphagia: TECHNOLOGY LAB TEACHER is signed off, patient's dysphagia has improved and he is able to tolerate regular foods without any signs of aspiration. Continue to monitor for aspiration and reconsult if needed. Spasticity: Continue home baclofen. Look to increase if needed. Continue stretching and teach patient on home stretching program in order to improve ability for range of motion. Patient is performing stretching routines in the room which she states is helping with tone Left foot drop: Continue working with the patient with physical therapy. Will consider utilizing AFO prior to discharge if patient is able to ambulate and he does not recover ability to dorsiflex. Neuropathy: Patient did not tolerate gabapentin previously which has been stopped. Is currently taking Lyrica and will adjust dose as needed. PTSD: Patient states that he is stopped seeing psychiatrist at the [facility] and feels like his PTSD is fairly well controlled. He does state that he continues to have nightmares at night which do disturb his sleep at times. We did discuss the use of prazosin however the patient does want to defer starting this currently. We will continue to monitor the patient for any signs of PTSD or nightmares interfering with his recovery and will address the issue again as needed. Constipation: Patient states that he can typically go a week or so without a bowel movement. Has recently had 1. Will schedule bowel meds with hold for loose stools. Asthma: Albuterol tablets not available, have scheduled and as needed nebulizers available. Symbicort is also not on formulary but have ordered our in-house substitute. We will look to reduce this if able. Respiratory consult in place. Multiple sclerosis: Patient recently diagnosed after shelter from the [employer]. Receives injections at the [facility]. Noted some neuropathy, weakness, and altered sensation from the MS prior to the stroke. Volume depletion: Patient states that he is not eating or drinking as much as he normally does. . look to avoid IV fluids if possible by using increased amounts of oral hydration in the future. ADL dysfunction: OT will work on improving ability to perform ADLs (including assistive devices) to increase independence and decrease caregiver burden and improve functional transfers and mobility training. Difficulty walking: PT will work on gait training and proper use of assistive devices and advance as appropriate to use of stairs and outside ambulation on u nicolas surfaces. Unsteadiness on feet: PT will work on improving static and dynamic sitting and standing balance as well as proper use of assistive devices to decrease risk of falls. Abnormality of gait: PT will work to improve safety and efficiency of gait through neuromotor training and gait training along with instruction on proper use of assistive devices. Muscle weakness: PT & OT will work on strengthening exercises to improve functional strength including mixture of closed and open kinetic chain exercises. Debility: PT & OT will work on improving overall functional status to improve p articipation with ADLs, mobility and social involvement. Fatigue: PT & OT will work on improving endurance through aerobic exercises and therapeutic activity while monitoring patients tolerance for activity and vital signs as needed. DVT ppx: Lovenox Pain: Continue physical modalities in therapy and pain medications as needed to achieve functional pain control. Sleep: Monitor and address as needed. Bowel: Monitor and address as needed. Appetite: Monitor and address as needed. Discharge planning: Pending therapy progress and care plan meeting. Will continue discussion with therapy team, SW, patient and family. Restrictions/ Precautions: Falls, aspiration WB status: FWB Functional Hx: ADLs: Needed some assistance Cognition: Independent Mobility: Cane/RW/motorized wheelchair Barriers to Discharge: Decreased mobility and ability to perform self care, balance deficits, weakness Estimated Length of Stay: 1418 days Discharge Destination: Home with family
[2021-08-29 15:25] LABS: Alanine Aminotransferase 20 units/L (7-56); Albumin 3.4 g/dL (3.9-5); BUN/Creatinine Ratio 33; Blood Urea Nitrogen 26 mg/dL (9-20); Calcium 8.7 mg/dL (8.4-10.2); Hemolysis Index 5
[2021-08-29] MEDS: ASPIRIN EC 81 MG TAB PO SCH (15:35)
[2021-08-29 16:02] LABS: Hemoglobin 12.1 gm/dl (11.8-15.2); Mean Corpuscular HGB Conc 34 % (32-34); Mean Corpuscular Volume 79 fl (84-94); Platelet Count 192 K/mm3 (140-440); Red Blood Count 4.59 M/mm3 (3.65-5.03); Red Cell Distribution Width 14.7 % (13.2-15.2)
[2021-08-29 20:03] LABS: Total Cells Counted 100
[2021-08-29 20:04] LABS: Anisocytosis 1+; Poikilocytosis 1+
[2021-08-29 20:05] LABS: Ovalocytes Few; Platelet Estimate Consistent w Auto
[2021-08-29] MEDS ORDERED: SODIUM CHLORIDE 0.9% 1000 ML 1,000 ML IV SCH (20:15)
--- NOTE | 2021-08-30 09:33 | Progress Note ---
Subjective Date of service: 08/30/21 Principal diagnosis: Right MCA CVA with left hemiparesis Interval history: 50-year-old male who presented to the outside hospital on 08/17 with complaints of spasms and left-sided facial droop accompanied by slurred speech. Initially his symptoms were considered to be related to an MS exacerbation and he was provided with steroids and discharged home. However he returned same day to the ER for repeated issues with continued facial droop. Further work-up with MRI showed an acute right MCA territory lacunar infarct involving the putamen, periventricular white matter and a portion of the posterior limb of the internal capsule. Given his age, hypercoagulable work-up was performed. Patient has moderate dysarthria and dysphagia. He was placed on a soft mechanical diet with thin liquids. Medication should be crushed in pure patient was started on secondary stroke prevention. He tolerated therapy well and was recommended for acute inpatient rehabilitation. After the patient was medically stabilized they were transferred for further rehabilitation. All available medical records have been reviewed. Plan of care was discussed with patient. He also has a history of multiple sclerosis with neuropathy and continues taking Lyrica at baseline as well as baclofen for occasional spasms. The patient ambulates with a cane or walker depending on his ability for the day. He has recently received a motorized wheelchair however is awaiting moving into a home with a mask from the main in order to be able to utilize that. Patient does state that he has issues with constipation. He just retired recently after 20+ years in the [employer] and does have symptoms associated with PTSD, discussed use of praises in for his vivid nightmares however at this point he is wanting to defer starting this medication. Will monitor for any effect his recovery and address again if needed. Interval History: Patient is participating in therapy and making reasonable progress. Taking rest breaks as needed. +BM. Denies pain, palpitations, dyspnea, cough, N/V, or joint pain. Overall, patient does have good outlook and attitude and is working hard with therapy to initiate improvement. Patient continues to work with therapy and is making progress towards goals of being able to return home. Patient dizzy yesterday with symptoms consistent with volume depletion. Baclofen could also be a factor. Continue to monitor CVA: Continue secondary stroke prevention, therapy. Monitor for any signs or symptoms of stroke recrudescence, shoulder-hand syndrome, worsening spasticity, post stroke depression, sleep disturbance. He does have weakness from prior with his MS which will complicate healing somewhat. Spasticity: Continue baclofen which patient was on previously for spasticity due to MS. Unclear as to how much of the spasticity is due to the CVA versus MS, patient does state that he had some issues previously with MS but this is worse currently. Encouraged the patient to continue stretching while he is not in therapy. Demonstrated to him the difference between tone and spasticity and how to properly perform prolonged stretches Volume depletion: Patient not in taking enough oral hydration. Became symptomatic yesterday with slightly decreased blood pressure, dizziness and labs showed increasing BUN/creatinine ratio. EKG shows sinus bradycardia. Gentle IV fluids overnight. Monitor volume status. Discussed with patient increase oral intake Left foot drop: Patient is walking more with therapy. We will likely go ahead and move forward with an AFO. Hopefully this is something that he can continue at home and not rely solely on the motorized wheelchair until his endurance is a limiting factor based on the progression of his MS Neuropathy: Stable so far on current dose of Lyrica. Continue to monitor and adjust if needed. Constipation: Improving with bowel meds. Continue to monitor and adjust as needed. Patient is having bowel movements and has requested bowel meds to be held due to decreased ability to control Asthma: Seems to be doing okay currently. We will continue medications and adjust as needed. MS: Patient uncertain of type however states that he is receiving injections from his physicians at the [facility]. Seems to be a fairly aggressive type with the quickness of his deconditioning. Will concentrate on energy conservation with therapy in order to improve his overall quality of life once he returns home. ADL mobility dysfunction: Continue therapy to improve patient's ability to perform self-care and ADLs as well as improve his mobility and transfers. Patient was able to walk in the hallway utilizing the RW with assistance All records, vitals, labs and medications were reviewed. No other issues per patient, nursing or therapy. Objective - Exam Narrative Exam: MUSCULOSKELETAL SPECIALTY EXAM CONSTITUTIONAL: Well developed, well nourished, appropriately groomed. RIGHT hand dominant. RESPIRATORY: Clear to auscultation bilaterally, no increased work of breathing CARDIOVASCULAR: Regular Rate/ Rhythm, no swelling, edema or tenderness in BUE or BLE. All extremities warm. GI: + bowel sounds, soft, NTTP, nondistended. INTEGUMENTARY: Normal, no lesion, rash, masses or bruising noted in extremities. MUSCULOSKELETAL: BUE and BLE normal without defect, crepitus, subluxation, effusion, arthritic changes or TTP. R 4+/5 L 1/5 for shoulder abduction, 3/5 at the biceps/triceps, 2/5 senior compliance officer, 1/5 lower extremity ROM within normal limits on the right, decreased on the left Tone normal on the right, increased on the left with variable spasticity. MAS 3/5 LLE and 2/5 LUE NEURO: CN VII : Left facial droop CN XI : Impaired left shoulder shrug, improving CN XII : Tongue protrudes to the left Sensation intact in all extremities without extinction. Sustained clonus left ankle. No tremor noted in 4 extremities. Naming and repetition intact. Follows 2 step commands. Aphasia not appreciated Dysarthria resolved Dysphagia resolved Neglect not appreciated POSTURE and GAIT: Sitting posture fair. Balance and gait fair with assistance to advance LLE and cues to correct posture. PSYCH: Alert, oriented x3, affect appears euthymic. Insight appears intact. - Constitutional Vitals: Vital Signs - 12hr 08/29/21 08/29/21 08/30/21 22:00 23:39 03:39 Temperature 98.0 F 98.0 F Pulse Rate 54 L 58 L Respiratory 18 18 Rate Blood Pressure 118/67 105/71 O2 Sat by Pulse 99 98 96 Oximetry - Allied health notes Allied health notes reviewed: nursing, PT, OT FIMS assessment as documented by PT/OT/ST: Locomotion- walk/wheelchair Ambulation Distance 0 - Labs CBC & Chem 7: 08/29/21 14:52 08/29/21 14:52 Labs: Laboratory Results - last 72 hr 08/29/21 08/29/21 08/29/21 11:37 14:52 14:52 WBC 9.2 RBC 4.59 Hgb 12.1 Hct 36.0 MCV 79 L MCH 26 L MCHC 34 RDW 14.7 Plt Count 192 Eos % (Auto) Color Control Supervisor Add Manual Diff Complete Total Counted 100 Seg Neuts % (Manual) 62.0 Lymphocytes % (Manual) 6.0 L Monocytes % (Manual) 4.0 Eosinophils % (Manual) 26.0 H Basophils % (Manual) 2.0 H Nucleated RBC % Not Reportable Seg Neutrophils # Man 5.7 Band Neutrophils # 0.0 Lymphocytes # (Manual) 0.6 L Abs React Lymphs (Man) 0.0 Monocytes # (Manual) 0.4 Eosinophils # (Manual) 2.4 H Basophils # (Manual) 0.2 H Metamyelocytes # 0.0 Myelocytes # 0.0 Promyelocytes # 0.0 Blast Cells # 0.0 WBC Morphology Not Reportable Hypersegmented Neuts Not Reportable Hyposegmented Neuts Not Reportable Hypogranular Neuts Not Reportable Smudge Cells Not Reportable Toxic Granulation Not Reportable Toxic Vacuolation Not Reportable Dohle Bodies Not Reportable Pelger-Huet Anomaly Not Reportable Elda Rods Not Reportable Platelet Estimate Consistent w auto Clumped Platelets Not Reportable Plt Clumps, EDTA Not Reportable Large Platelets Not Reportable Giant Platelets Not Reportable Platelet Satelliting Not Reportable Plt Morphology Comment Not Reportable RBC Morphology Not Reportable Dimorphic RBCs Not Reportable Polychromasia Not Reportable Hypochromasia Not Reportable Poikilocytosis 1+ Anisocytosis 1+ Microcytosis Not Reportable Macrocytosis Not Reportable Spherocytes Not Reportable Pappenheimer Bodies Not Reportable Sickle Cells Not Reportable Target Cells Not Reportable Tear Drop Cells Not Reportable Ovalocytes Few Helmet Cells Not Reportable [place]az[place] Bodies Not Reportable [place] Rings Not Reportable [place] Cells Not Reportable Bite Cells Not Reportable Crenated Cell Not Reportable Elliptocytes Few Acanthocytes (Spur) 1+ Rouleaux Not Reportable Hemoglobin C Crystals Not Reportable Schistocytes Not Reportable Malaria parasites Not Reportable Manpreet Bodies Not Reportable Hem Pathologist Commnt No Sodium 138 Potassium 3.8 Chloride 106.2 Carbon Dioxide 27 Anion Gap 9 BUN 26 H Creatinine 0.8 Estimated GFR > 60 BUN/Creatinine Ratio 33 Glucose 83 POC Glucose 94 Calcium 8.7 Magnesium 1.90 Total Bilirubin 0.20 AST 13 ALT 20 Alkaline Phosphatase 123 Total Protein 5.8 L Albumin 3.4 L Albumin/Globulin Ratio 1.4 Assessment and Plan MCA CVA with left nondominant hemiparesis: Continue Secondary Stroke Prevention (Antithrombotic, Statin (Goal LDL-C <70), BP control (Goal <140/90), GLU control (Goal A1c <7), and lifestyle modification). Monitor for recurrent stroke or post-stroke recrudescence. Continue neuromotor therapy as above. Family training when available. Monitor for post stroke depression, cognitive deficits, seizure, dysphagia, aphasia, shoulder hand syndrome, sensory deficits, spasticity, bowel/bladder deficits, sleep disturbance, vision deficits and DVT. Prognosis for recovery and Secondary Stroke Prevention discussed. Follow up with Neurology. No driving until cleared by Neurologist. Dysarthria: OFFBEARER has signed off, patient seems to be close to baseline. Dysphagia: OFFBEARER is signed off, patient's dysphagia has improved and he is able to tolerate regular foods without any signs of aspiration. Continue to monitor for aspiration and reconsult if needed. Spasticity: Continue home baclofen. Look to increase if needed. Continue stretching and teach patient on home stretching program in order to improve ability for range of motion. Patient is performing stretching routines in the room which she states is helping with tone Left foot drop: Continue working with the patient with physical therapy. Will consider utilizing AFO prior to discharge if patient is able to ambulate and he does not recover ability to dorsiflex. Neuropathy: Patient did not tolerate gabapentin previously which has been stopped. Is currently taking Lyrica and will adjust dose as needed. PTSD: Patient states that he is stopped seeing psychiatrist at the [facility] and feels like his PTSD is fairly well controlled. He does state that he continues to have nightmares at night which do disturb his sleep at times. We did discuss the use of prazosin however the patient does want to defer starting this currently. We will continue to monitor the patient for any signs of PTSD or nightmares interfering with his recovery and will address the issue again as needed. Constipation: Patient states that he can typically go a week or so without a bowel movement. Has recently had 1. Will schedule bowel meds with hold for loose stools. Asthma: Albuterol tablets not available, have scheduled and as needed nebulizers available. Symbicort is also not on formulary but have ordered our in-house substitute. We will look to reduce this if able. Respiratory consult in place. Multiple sclerosis: Patient recently diagnosed after alf from the [employer]. [facility] Noted some neuropathy, weakness, and altered sen sation from the MS prior to the stroke. Volume depletion: Patient states that he is not eating or drinking as much as he normally does. . BUN/creatinine elevated again and patient symptomatic yester day. Completed a liter of IV fluids overnight. Continue to monitor and give fluids as needed. Encouraged patient to improve oral intake of fluids. ADL dysfunction: OT will work on improving ability to perform ADLs (including assistive devices) to increase independence and decrease caregiver burden and improve functional transfers and mobility training. Difficulty walking: PT will work on gait training and proper use of assistive devices and advance as appropriate to use of stairs and outside ambulation on uneven surfaces. Unsteadiness on feet: PT will work on improving static and dynamic sitting and standing balance as well as proper use of assistive devices to decrease risk of falls. Abnormality of gait: PT will work to improve safety and efficiency of gait through neuromotor training and gait training along with instruction on proper use of assistive devices. Muscle weakness: PT & OT will work on strengthening exercises to improve functional strength including mixture of closed and open kinetic chain exercises. Debility: PT & OT will work on improving overall functional status to improve participation with ADLs, mobility and social involvement. Fatigue: PT & OT will work on improving endurance through aerobic exercises and therapeutic activity while monitoring patients tolerance for activity and vital signs as needed. DVT ppx: Lovenox Pain: Continue physical modalities in therapy and pain medications as needed to achieve functional pain control. Sleep: Monitor and address as needed. Bowel: Monitor and address as needed. Appetite: Monitor and address as needed. Discharge planning: Pending therapy progress and care plan meeting. Will continue discussion with therapy team, SW, patient and family. Restrictions/ Precautions: Falls, aspiration WB status: FWB Functional Hx: ADLs: Needed some assistance Cognition: Independent Mobility: Cane/RW/motorized wheelchair Barriers to Discharge: Decreased mobility and ability to perform self care, balance deficits, weakness Estimated Length of Stay: 1418 days Discharge Destination: Home with family
[2021-08-30] MEDS: DOCUSATE SODIUM 100 MG CAP PO SCH (10:59)
[2021-08-30] MEDS: ASPIRIN EC 81 MG TAB PO SCH (10:59)
[2021-08-30] MEDS: CLOPIDOGREL 75 MG TAB PO SCH (11:00)
[2021-08-30] MEDS: CHOLECALCIFEROL (VIT D3) 1000 UNIT (25 mcg) TAB PO SCH (11:00)
[2021-08-30] MEDS: BACLOFEN 10 MG TAB PO SCH ×3 (11:00→20:51)
[2021-08-30] MEDS: FERROUS SULFATE 325 MG TAB PO SCH (11:00)
[2021-08-30] MEDS: ENOXAPARIN 40 MG/0.4 ML INJ SUB-Q SCH (11:01)
[2021-08-30] MEDS: PANTOPRAZOLE 40 MG TAB PO SCH (11:01)
[2021-08-30] MEDS: MELOXICAM 7.5 MG TAB PO SCH (11:01)
[2021-08-31] MEDS: DOCUSATE SODIUM 100 MG CAP PO SCH ×3 (07:44→21:38)
[2021-08-31] MEDS: MELOXICAM 7.5 MG TAB PO SCH (11:04)
[2021-08-31] MEDS: FERROUS SULFATE 325 MG TAB PO SCH (11:05)
[2021-08-31] MEDS: PANTOPRAZOLE 40 MG TAB PO SCH (11:05)
[2021-08-31] MEDS: CLOPIDOGREL 75 MG TAB PO SCH (11:05)
[2021-08-31] MEDS: BACLOFEN 10 MG TAB PO SCH ×3 (11:05→21:38)
[2021-08-31] MEDS: ASPIRIN EC 81 MG TAB PO SCH (11:05)
[2021-08-31] MEDS: CHOLECALCIFEROL (VIT D3) 1000 UNIT (25 mcg) TAB PO SCH (11:05)
[2021-08-31] MEDS: ENOXAPARIN 40 MG/0.4 ML INJ SUB-Q SCH (11:06)
[2021-09-01] MEDS: ENOXAPARIN 40 MG/0.4 ML INJ SUB-Q SCH (10:35)
[2021-09-01] MEDS: MELOXICAM 7.5 MG TAB PO SCH (10:35)
[2021-09-01] MEDS: FERROUS SULFATE 325 MG TAB PO SCH (10:35)
[2021-09-01] MEDS: DOCUSATE SODIUM 100 MG CAP PO SCH ×2 (10:35→21:23)
[2021-09-01] MEDS: CLOPIDOGREL 75 MG TAB PO SCH (10:35)
[2021-09-01] MEDS: ASPIRIN EC 81 MG TAB PO SCH (10:35)
[2021-09-01] MEDS: CHOLECALCIFEROL (VIT D3) 1000 UNIT (25 mcg) TAB PO SCH (10:35)
[2021-09-01] MEDS: PANTOPRAZOLE 40 MG TAB PO SCH (10:35)
[2021-09-01] MEDS: BACLOFEN 10 MG TAB PO SCH ×3 (10:39→21:20)
--- NOTE | 2021-09-02 08:15 | Progress Note ---
Subjective Date of service: 09/02/21 Principal diagnosis: Right MCA CVA with left hemiparesis Interval history: 50-year-old male who presented to the outside hospital on 08/17 with complaints of spasms and left-sided facial droop accompanied by slurred speech. Initially his symptoms were considered to be related to an MS exacerbation and he was provided with steroids and discharged home. However he returned same day to the ER for repeated issues with continued facial droop. Further work-up with MRI showed an acute right MCA territory lacunar infarct involving the putamen, periventricular white matter and a portion of the posterior limb of the internal capsule. Given his age, hypercoagulable work-up was performed. Patient has moderate dysarthria and dysphagia. He was placed on a soft mechanical diet with thin liquids. Medication should be crushed in pure patient was started on secondary stroke prevention. He tolerated therapy well and was recommended for acute inpatient rehabilitation. After the patient was medically stabilized they were transferred for further rehabilitation. All available medical records have been reviewed. Plan of care was discussed with patient. He also has a history of multiple sclerosis with neuropathy and continues taking Lyrica at baseline as well as baclofen for occasional spasms. The patient ambulates with a cane or walker depending on his ability for the day. He has recently received a motorized wheelchair however is awaiting moving into a home with a mask from the main in order to be able to utilize that. Patient does state that he has issues with constipation. He just retired recently after 20+ years in the [employer] and does have symptoms associated with PTSD, discussed use of praises in for his vivid nightmares however at this point he is wanting to defer starting this medication. Will monitor for any effect his recovery and address again if needed. Interval History: Patient is participating in therapy and making reasonable progress. Taking rest breaks as needed. -BM. Denies pain, palpitations, dyspnea, cough, N/V, or joint pain. Overall, patient does have good outlook and attitude and is working hard with therapy to initiate improvement. Patient continues to work with therapy and is making progress towards goals of being able to return home. Patient had increased weakness in the bilateral lower extremities on Thursday which is concerning to him today as well. States that over the weekend he tried to do some bed exercises however had difficulty due to the weakness on his right side. CVA: Continue secondary stroke prevention, therapy. Monitor for any signs or symptoms of stroke recrudescence, shoulder-hand syndrome, worsening spasticity, post stroke depression, sleep disturbance. He does have weakness from prior with his MS which will complicate healing somewhat. Spasticity: Continue baclofen which patient was on previously for spasticity due to MS. Unclear as to how much of the spasticity is due to the CVA versus MS, patient does state that he had some issues previously with MS but this is worse currently. Encouraged the patient to continue stretching while he is not in therapy. Left upper extremity spasticity increased today on manager local exam Volume depletion: Patient not in taking enough oral hydration. Labs pending, may need to give more IV fluids. Patient did state that he has been drinking water and other fluids throughout the weekend. Discussed with patient increase oral intake Left foot drop: Patient is walking more with therapy. We will likely go ahead and move forward with an AFO. Hopefully this is something that he can continue at home and not rely solely on the motorized wheelchair until his endurance is a limiting factor based on the progression of his MS Neuropathy: Stable so far on current dose of Lyrica. Continue to monitor and adjust if needed. Constipation: Improving with bowel meds. Continue to monitor and adjust as needed. Variable pattern of bowel movements Asthma: Seems to be doing okay currently. We will continue medications and a djust as needed. MS: Patient uncertain of type however states that he is receiving injections from his physicians at the [facility]. Seems to be a fairly aggressive type with the quickness of his deconditioning. Will concentrate on energy conservation with therapy in order to improve his overall quality of life once he returns home. Patient does have a neurology tele-appointment scheduled for this Thursday. ADL & mobility dysfunction: Continue therapy to improve patient's ability to perform self-care and ADLs as well as improve his mobility and transfers. Patient was able to walk in the hallway utilizing the RW with assistance All records, vitals, labs and medications were reviewed. No other issues per patient, nursing or therapy. Objective - Exam Narrative Exam: MUSCULOSKELETAL SPECIALTY EXAM CONSTITUTIONAL: Well developed, well nourished, appropriately groomed. RIGHT hand dominant. RESPIRATORY: Clear to auscultation bilaterally, no increased work of breathing CARDIOVASCULAR: Regular Rate/ Rhythm, no swelling, edema or tenderness in BUE or BLE. All extremities warm. GI: + bowel sounds, soft, NTTP, nondistended. INTEGUMENTARY: Normal, no lesion, rash, masses or bruising noted in extremities. MUSCULOSKELETAL: BUE and BLE normal without defect, crepitus, subluxation, effusion, arthritic changes or TTP. R 4+/5 L 1/5 for shoulder abduction, 3/5 at the biceps/triceps, 2/5 protection engineer, 1/5 lower extremity ROM within normal limits on the right, decreased on the left Tone normal on the right, increased on the left with variable spasticity. MAS 3/5 LLE & LUE NEURO: CN VII : Left facial droop CN XI : Impaired left shoulder shrug, improving CN XII : Tongue protrudes to the left Sensation intact in all extremities without extinction. Sustained clonus left ankle. No tremor noted in 4 extremities. Naming and repetition intact. Follows 2 step commands. Aphasia not appreciated Dysarthria resolved Dysphagia resolved Neglect not appreciated POSTURE and GAIT: Sitting posture fair. Balance and gait fair with assistance to advance LLE and cues to correct posture. PSYCH: Alert, oriented x3, affect appears euthymic. Insight appears intact. - Constitutional Vitals: Vital Signs - 12hr 09/01/21 09/01/21 09/02/21 20:40 22:00 03:17 Temperature 98.1 F 98.6 F Pulse Rate 63 70 Respiratory 18 18 Rate Blood Pressure 97/66 98/66 O2 Sat by Pulse 98 100 96 Oximetry - Allied health notes Allied health notes reviewed: nursing, PT, OT FIMS assessment as documented by PT/OT/ST: Locomotion- walk/wheelchair Ambulation Distance 0 - Labs CBC & Chem 7: 08/29/21 14:52 08/29/21 14:52 Assessment and Plan MCA CVA with left nondominant hemiparesis: Continue Secondary Stroke Prevention (Antithrombotic, Statin (Goal LDL-C <70), BP control (Goal <140/90), GLU control (Goal A1c <7), and lifestyle modification). Monitor for recurrent stroke or post-stroke recrudescence. Continue neuromotor therapy as above. Family training when available. Monitor for post stroke depression, cognitive deficits, seizure, dysphagia, aphasia, shoulder hand syndrome, sensory deficits, spasticity, bowel/bladder deficits, sleep disturbance, vision deficits and DVT. Prognosis for recovery and Secondary Stroke Prevention discussed. Follow up with Neurology. No driving until cleared by Neurologist. Dysarthria: DENTAL LABORATORY TECHNICIAN APPRENTICE has signed off, patient seems to be close to baseline. Dysphagia: DENTAL LABORATORY TECHNICIAN APPRENTICE is signed off, patient's dysphagia has improved and he is able to tolerate regular foods without any signs of aspiration. Continue to monitor for aspiration and reconsult if needed. Spasticity: Continue home baclofen. Look to increase if needed. Continue stretching and teach patient on home stretching program in order to improve ability for range of motion. Patient is performing stretching routines in the room which she states is helping with tone Left foot drop: Continue working with the patient with physical therapy. Will consider utilizing AFO prior to discharge if patient is able to ambulate and he does not recover ability to dorsiflex. Neuropathy: Patient did not tolerate gabapentin previously which has been stopped. Is currently taking Lyrica and will adjust dose as needed. PTSD: Patient states that he is stopped seeing psychiatrist at the [facility] and feels like his PTSD is fairly well controlled. He does state that he continues to have nightmares at night which do disturb his sleep at times. We did discuss the use of prazosin however the patient does want to defer starting this currently. We will continue to monitor the patient for any signs of PTSD or nightmares interfering with his recovery and will address the issue again as needed. Constipation: Patient states that he can typically go a week or so without a bowel movement. Will schedule bowel meds with hold for loose stools. Asthma: Albuterol tablets not available, have scheduled and as needed nebulizers available. Symbicort is also not on formulary but have ordered our in-house substitute. We will look to reduce this if able. Respiratory consult in place. Multiple sclerosis: Patient recently diagnosed after mcc from the [employer]. Receives injections at the [facility]. Noted some neuropathy, weakness, and altered sensation from the MS prior to the stroke. Volume depletion: Patient states that he is not eating or drinking as much as he normally does. Continue to monitor and give fluids as needed. Encouraged patient to improve oral intake of fluids. ADL dysfunction: OT will work on improving ability to perform ADLs (including assistive devices) to increase independence and decrease caregiver burden and improve functional transfers and mobility training. Difficulty walking: PT will work on gait training and proper use of assistive devices and advance as appropriate to use of stairs and outside ambulation on uneven surfaces. Unsteadiness on feet: PT will work on improving static and dynamic sitting and standing balance as well as proper use of assistive devices to decrease risk of falls. Abnormality of gait: PT will work to improve safety and efficiency of gait through neuromotor training and gait training along with instruction on proper use of assistive devices. Muscle weakness: PT & OT will work on strengthening exercises to improve functional strength including mixture of closed and open kinetic chain exercises. Debility: PT & OT will work on improving overall functional status to improve participation with ADLs, mobility and social involvement. Fatigue: PT & OT will work on improving endurance through aerobic exercises and therapeutic activity while monitoring patients tolerance for activity and vital signs as needed. DVT ppx: Lovenox Pain: Continue physical modalities in therapy and pain medications as needed to achieve functional pain control. Sleep: Monitor and address as needed. Bowel: Monitor and address as needed. Appetite: Monitor and address as needed. Discharge planning: Pending therapy progress and care plan meeting. Will continue discussion with therapy team, SW, patient and family. Restrictions/ Precautions: Falls, aspiration WB status: FWB Functional Hx: ADLs: Needed some assistance Cognition: Independent Mobility: Cane/RW/motorized wheelchair Barriers to Discharge: Decreased mobility and ability to perform self care, balance deficits, weakness Estimated Length of Stay: 1418 days Discharge Destination: Home with family
[2021-09-02] MEDS: MELOXICAM 7.5 MG TAB PO SCH (09:03)
[2021-09-02] MEDS: ENOXAPARIN 40 MG/0.4 ML INJ SUB-Q SCH (09:03)
[2021-09-02] MEDS: FERROUS SULFATE 325 MG TAB PO SCH (09:04)
[2021-09-02] MEDS: PANTOPRAZOLE 40 MG TAB PO SCH (09:04)
[2021-09-02] MEDS: CLOPIDOGREL 75 MG TAB PO SCH (09:04)
[2021-09-02] MEDS: BACLOFEN 10 MG TAB PO SCH ×3 (09:04→22:10)
[2021-09-02] MEDS: CHOLECALCIFEROL (VIT D3) 1000 UNIT (25 mcg) TAB PO SCH (09:04)
[2021-09-02] MEDS: ASPIRIN EC 81 MG TAB PO SCH (09:04)
[2021-09-02] MEDS: DOCUSATE SODIUM 100 MG CAP PO SCH ×2 (09:10→22:13)
[2021-09-02 11:02] LABS: Hematocrit 38.4 % (35.5-45.6); Hemoglobin 13.1 gm/dl (11.8-15.2); Mean Corpuscular HGB Conc 34 % (32-34); Mean Corpuscular Volume 79 fl (84-94); Platelet Count 204 K/mm3 (140-440); Red Blood Count 4.89 M/mm3 (3.65-5.03); Red Cell Distribution Width 14.6 % (13.2-15.2)
[2021-09-02 11:16] LABS: Blood Urea Nitrogen 19 mg/dL (9-20); Calcium 8.8 mg/dL (8.4-10.2); Hemolysis Index 8
[2021-09-02 11:19] LABS: BUN/Creatinine Ratio 27
--- NOTE | 2021-09-02 14:35 | Electrocardiograph Report ---
[facility] Test Date: 2021-08-29 Test Time: 12:06:04 Pat Name: LOREN BLAS Department: Room: A490 1 Gender: M Portable Track Line Marker: [id number] : 1970 Requested By: MALLORIE JARA III Order Number: [id number] Reading MD: Antwan Lassiter Measurements Intervals [place] Rate: 47 P: 40 WA: 196 QRS: 21 QRSD: 91 T: 62 QT: 439 QTc: 387 Interpretive Statements Marked sinus bradycardia No previous ECG available for comparison Electronically Signed On 09-02-2021 14:34:48 EDT by Antwan Lassiter
--- NOTE | 2021-09-03 09:25 | Progress Note ---
Subjective Date of service: 09/03/21 Principal diagnosis: Right MCA CVA with left hemiparesis Interval history: 50-year-old male who presented to the outside hospital on 08/17 with complaints of spasms and left-sided facial droop accompanied by slurred speech. Initially his symptoms were considered to be related to an MS exacerbation and he was provided with steroids and discharged home. However he returned same day to the ER for repeated issues with continued facial droop. Further work-up with MRI showed an acute right MCA territory lacunar infarct involving the putamen, periventricular white matter and a portion of the posterior limb of the internal capsule. Given his age, hypercoagulable work-up was performed. Patient has moderate dysarthria and dysphagia. He was placed on a soft mechanical diet with thin liquids. Medication should be crushed in pure patient was started on secondary stroke prevention. He tolerated therapy well and was recommended for acute inpatient rehabilitation. After the patient was medically stabilized they were transferred for further rehabilitation. All available medical records have been reviewed. Plan of care was discussed with patient. He also has a history of multiple sclerosis with neuropathy and continues taking Lyrica at baseline as well as baclofen for occasional spasms. The patient ambulates with a cane or walker depending on his ability for the day. He has recently received a motorized wheelchair however is awaiting moving into a home with a mask from the main in order to be able to utilize that. Patient does state that he has issues with constipation. He just retired recently after 20+ years in the [employer] and does have symptoms associated with PTSD, discussed use of praises in for his vivid nightmares however at this point he is wanting to defer starting this medication. Will monitor for any effect his recovery and address again if needed. Interval History: Patient is participating in therapy and making reasonable progress. Taking rest breaks as needed. +BM. Denies pain, palpitations, dyspnea, cough, N/V, or joint pain. Overall, patient does have good outlook and attitude and is working hard with therapy to initiate improvement. Patient continues to work with therapy and is making progress towards goals of being able to return home. Patient would like to continue working over the weekend as well with therapy as he did not get out of bed this past weekend. Will attempt to modify therapy schedule in order to spread out the patient's therapy time which will also help with conservation of energy due to MS. CVA: Continue secondary stroke prevention, therapy. Monitor for any signs or symptoms of stroke recrudescence, shoulder-hand syndrome, worsening spasticity, post stroke depression, sleep disturbance. He does have weakness from prior with his MS which will complicate healing somewhat. Patient does note that sensation has improved in his face, facial droop still present but speech is also improved Spasticity: Continue baclofen which patient was on previously for spasticity due to MS. Unclear as to how much of the spasticity is due to the CVA versus MS, patient does state that he had some issues previously with MS but this is worse currently. Encouraged the patient to continue stretching while he is not in therapy. Patient is having hypotension at times which limits the available increases of baclofen Volume depletion: Patient not in taking enough oral hydration. Fluid status improved on yesterday's labs. Encourage patient to continue drinking as he currently is. Will monitor occasionally. Hypokalemia: Replace with potassium and monitor for improvement. Left foot drop: Patient is walking more with therapy. We will likely go ahead and move forward with an AFO. Hopefully this is something that he can continue at home and not rely solely on the motorized wheelchair until his endurance is a limiting factor based on the progression of his MS Neuropathy: Stable so far on current dose of Lyrica. Continue to monitor and adjust if needed. Constipation: Improving with bowel meds. Continue to monitor and adjust as needed. Variable pattern of bowel movements Asthma: Seems to be doing okay currently. We will continue medications and adjust as needed. MS: Patient uncertain of type however states that he is receiving injections from his physicians at the [facility]. Seems to be a fairly aggressive type with the quickness of his deconditioning. Will concentrate on energy conservation with therapy in order to improve his overall quality of life once he returns home. Patient does have a neurology tele-appointment scheduled for this Thursday. Will attempt to adjust therapy schedule so that he is getting therapy 7 days a week at slightly reduced amounts of time daily. ADL & mobility dysfunction: Continue therapy to improve patient's ability to perform self-care and ADLs as well as improve his mobility and transfers. Patient was able to walk in the hallway utilizing the RW with assistance All records, vitals, labs and medications were reviewed. No other issues per patient, nursing or therapy. Patient discussed during team conference. He is making progress however it is coming fairly slowly. Will attempt to spread out therapy over 7 days if po ssible depending on staffing and conserve energy for him. Did speak with therapy as to the need to concentrate on transfers and ADLs over walking. Would like to preserve his ability to ambulate for the 25 feet that he is currently doing and this is more than he was doing previously at home. We will look to bring his in this week and next week in order to undergo family training and to see how she is equipped to work with him in his current state. Unfortunately the house they were looking to close on fell through and they were starting that process over again so he will not have availability of the home layout that he was anticipating at discharge. Considering hospital bed at discharge depending on how he improves with his transfers and bed mobility. We will continue to work with a sliding board transfer set up so that he can utilize that as a backup in case he is having a flare or a bad day and cannot do a stand pivot transfer. Depending on the type of motorized wheelchair that the patient has at home, may have the patient's bring that up and do some training on that as well to improve his mobility. Patient still having a hard time eating utilizing available utensils. Will ask OT to work with modified utensils and plate to see if this helps improve his independence. In total, 40 minutes was invested in patient care today including counseling and coordinating care with the therapists and patient as noted above Objective - Exam Narrative Exam: MUSCULOSKELETAL SPECIALTY EXAM CONSTITUTIONAL: Well developed, well nourished, appropriately groomed. RIGHT hand dominant. RESPIRATORY: Clear to auscultation bilaterally, no increased work of breathing CARDIOVASCULAR: Regular Rate/ Rhythm, no swelling, edema or tenderness in BUE or BLE. All extremities warm. GI: + bowel sounds, soft, NTTP, nondistended. INTEGUMENTARY: Normal, no lesion, rash, masses or bruising noted in extremities. MUSCULOSKELETAL: BUE and BLE normal without defect, crepitus, subluxation, effusion, arthritic changes or TTP. R 4+/5 L 1/5 for shoulder abduction, 3/5 at the biceps/triceps, 2/5 corporate treasurer, 1/5 lower extremity ROM within normal limits on the right, decreased on the left Tone normal on the right, increased on the left with variable spasticity. MAS 3/5 LLE & LUE NEURO: CN VII : Left facial droop CN XI : Impaired left shoulder shrug, improving CN XII : Tongue protrudes to the left Sensation intact in all extremities without extinction. Sustained clonus left ankle. No tremor noted in 4 extremities. Naming and repetition intact. Follows 2 step commands. Aphasia not appreciated Dysarthria resolved Dysphagia resolved Neglect not appreciated POSTURE and GAIT: Sitting posture fair. Balance and gait fair with assistance to advance LLE and cues to correct posture. PSYCH: Alert, oriented x3, affect appears euthymic. Insight appears intact. - Constitutional Vitals: Vital Signs - 12hr 09/02/21 09/03/21 22:00 04:38 Temperature 97.6 F Pulse Rate 63 Respiratory 18 Rate Blood Pressure 105/66 O2 Sat by Pulse 100 97 Oximetry - Allied health notes Allied health notes reviewed: nursing, PT, OT FIMS assessment as documented by PT/OT/ST: Locomotion- walk/wheelchair Ambulation Distance 0 - Labs CBC & Chem 7: 09/02/21 09:45 09/02/21 09:45 Labs: Laboratory Results - last 72 hr 09/02/21 09/02/21 09:45 09:45 WBC 7.8 RBC 4.89 Hgb 13.1 Hct 38.4 MCV 79 L MCH 27 L MCHC 34 RDW 14.6 Plt Count 204 Sodium 141 Potassium 3.5 L Chloride 106.0 Carbon Dioxide 22 Anion Gap 17 BUN 19 Creatinine 0.7 L Estimated GFR > 60 BUN/Creatinine Ratio 27 Glucose 110 H Calcium 8.8 Assessment and Plan MCA CVA with left nondominant hemiparesis: Continue Secondary Stroke Prevention (Antithrombotic, Statin (Goal LDL-C <70), BP control (Goal <140/90), GLU control (Goal A1c <7), and lifestyle modification). Monitor for recurrent stroke or post-stroke recrudescence. Continue neuromotor therapy as above. Family training when available. Monitor for post stroke depression, cognitive deficits, seizure, dysphagia, aphasia, shoulder hand syndrome, sensory deficits, spasticity, bowel/bladder deficits, sleep disturbance, vision deficits and DVT. Prognosis for recovery and Secondary Stroke Prevention discussed. Follow up with Neurology. No driving until cleared by Neurologist. Dysarthria: PORTABLE TRACK CREW CHIEF has signed off, patient seems to be close to baseline. Improved a little more Dysphagia: PORTABLE TRACK CREW CHIEF is signed off, patient's dysphagia has improved and he is able to tolerate regular foods without any signs of aspiration. Continue to monitor for aspiration and reconsult if needed. Spasticity: Continue home baclofen. Look to increase if needed. Continue stretching and teach patient on home stretching program in order to improve ability for range of motion. Patient is performing stretching routines in the room which he states is helping with tone. Due to intermittent hypotension, sara l be difficult to increase baclofen. We will continue stretching and medication to see if we can improve spasticity. Left foot drop: Continue working with the patient with physical therapy. Will consider utilizing AFO prior to discharge if patient is able to ambulate and he does not recover ability to dorsiflex. Neuropathy: Patient did not tolerate gabapentin previously which has been stopped. Is currently taking Lyrica and will adjust dose as needed. Hypokalemia: Replace potassium and recheck labs, monitor PTSD: Patient states that he is stopped seeing psychiatrist at the [facility] and feels like his PTSD is fairly well controlled. He does state that he continues to have nightmares at night which do disturb his sleep at times. We did discuss the use of prazosin however the patient does want to defer starting this currently. We will continue to monitor the patient for any signs of PTSD or nightmares interfering with his recovery and will address the issue again as needed. Constipation: Patient states that he can typically go a week or so without a bowel movement. Will schedule bowel meds with hold for loose stools. Asthma: Albuterol tablets not available, have scheduled and as needed nebulizers available. Symbicort is also not on formulary but have ordered our in-house sub stitute. We will look to reduce this if able. Respiratory consult in place. Multiple sclerosis: Patient recently diagnosed after nursing home from the [employer]. Receives injections at the [facility]. Noted some neuropathy, weakness, and altered sensation from the MS prior to the stroke. Volume depletion: Patient states that he is not eating or drinking as much as he normally does. Continue to monitor and give fluids as needed. Encouraged patient to improve oral intake of fluids. ADL dysfunction: OT will work on improving ability to perform ADLs (including assistive devices) to increase independence and decrease caregiver burden and improve functional transfers and mobility training. Difficulty walking: PT will work on gait training and proper use of assistive devices and advance as appropriate to use of stairs and outside ambulation on uneven surfaces. Unsteadiness on feet: PT will work on improving static and dynamic sitting and standing balance as well as proper use of assistive devices to decrease risk of falls. Abnormality of gait: PT will work to improve safety and efficiency of gait through neuromotor training and gait training along with instruction on proper use of assistive devices. Muscle weakness: PT & OT will work on strengthening exercises to improve functional strength including mixture of closed and open kinetic chain exercises. Debility: PT & OT will work on improving overall functional status to improve participation with ADLs, mobility and social involvement. Fatigue: PT & OT will work on improving endurance through aerobic exercises and therapeutic activity while monitoring patients tolerance for activity and vital signs as needed. DVT ppx: Lovenox Pain: Continue physical modalities in therapy and pain medications as needed to achieve functional pain control. Sleep: Monitor and address as needed. Bowel: Monitor and address as needed. Appetite: Monitor and address as needed. Discharge planning: Pending therapy progress and care plan meeting. Will continue discussion with therapy team, SW, patient and family. Tentatively looking to discharge on 09/12. Patient may need a hospital bed at discharge depending on his ability to perform transfers. Will likely need [facility] health which [facility] Restrictions/ Precautions: Falls, aspiration WB status: FWB Functional Hx: ADLs: Needed some assistance Cognition: Independent Mobility: Cane/RW/motorized wheelchair Barriers to Discharge: Decreased mobility and ability to perform self care, balance deficits, weakness Estimated Length of Stay: 1418 days Discharge Destination: Home with family
[2021-09-03] MEDS: CHOLECALCIFEROL (VIT D3) 1000 UNIT (25 mcg) TAB PO SCH (09:57)
[2021-09-03] MEDS: PANTOPRAZOLE 40 MG TAB PO SCH (09:57)
[2021-09-03] MEDS: FERROUS SULFATE 325 MG TAB PO SCH (09:57)
[2021-09-03] MEDS: CLOPIDOGREL 75 MG TAB PO SCH (09:57)
[2021-09-03] MEDS: ASPIRIN EC 81 MG TAB PO SCH (09:57)
[2021-09-03] MEDS: BACLOFEN 10 MG TAB PO SCH ×3 (09:58→21:14)
[2021-09-03] MEDS: POTASSIUM CHLORIDE ER 20 MEQ TAB PO SCH (09:58)
[2021-09-03] MEDS: ENOXAPARIN 40 MG/0.4 ML INJ SUB-Q SCH (10:00)
[2021-09-03] MEDS: DOCUSATE SODIUM 100 MG CAP PO SCH ×2 (10:00→21:14)
[2021-09-03] MEDS: MELOXICAM 7.5 MG TAB PO SCH (11:19)
--- NOTE | 2021-09-04 08:32 | Progress Note ---
Subjective Date of service: 09/04/21 Principal diagnosis: Right MCA CVA with left hemiparesis Interval history: 50-year-old male who presented to the outside hospital on 08/17 with complaints of spasms and left-sided facial droop accompanied by slurred speech. Initially his symptoms were considered to be related to an MS exacerbation and he was provided with steroids and discharged home. However he returned same day to the ER for repeated issues with continued facial droop. Further work-up with MRI showed an acute right MCA territory lacunar infarct involving the putamen, periventricular white matter and a portion of the posterior limb of the internal capsule. Given his age, hypercoagulable work-up was performed. Patient has moderate dysarthria and dysphagia. He was placed on a soft mechanical diet with thin liquids. Medication should be crushed in pure patient was started on secondary stroke prevention. He tolerated therapy well and was recommended for acute inpatient rehabilitation. After the patient was medically stabilized they were transferred for further rehabilitation. All available medical records have been reviewed. Plan of care was discussed with patient. He also has a history of multiple sclerosis with neuropathy and continues taking Lyrica at baseline as well as baclofen for occasional spasms. The patient ambulates with a cane or walker depending on his ability for the day. He has recently received a motorized wheelchair however is awaiting moving into a home with a mask from the main in order to be able to utilize that. Patient does state that he has issues with constipation. He just retired recently after 20+ years in the [employer] and does have symptoms associated with PTSD, discussed use of praises in for his vivid nightmares however at this point he is wanting to defer starting this medication. Will monitor for any effect his recovery and address again if needed. Interval History: Patient is participating in therapy and making reasonable progress. Taking rest breaks as needed. +BM. Denies pain, palpitations, dyspnea, cough, N/V, or joint pain. Overall, patient does have good outlook and attitude and is working hard with therapy to initiate improvement. Patient continues to work with therapy and is making progress towards goals of being able to return home. Patient had a tough time yesterday working with therapy due to weakness on the right side which is likely related to MS. He continue to push through it and it is much as he possibly could. Discussed with him this morning that we are working on trying to solidify his ability to perform transfers both sliding board and stand pivot in order to improve his independence at home. Also have OT working on utilizing modified utensils and plates in order to improve his ability to eat without needing assistance for cutting up food etc. CVA: Continue secondary stroke prevention, therapy. Monitor for any signs or symptoms of stroke recrudescence, shoulder-hand syndrome, worsening spasticity, post stroke depression, sleep disturbance. He does have weakness from prior with his MS which will complicate healing somewhat. Patient does note that sensation has improved in his face, facial droop still present but speech is also improved Spasticity: Continue baclofen which patient was on previously for spasticity due to MS. Unclear as to how much of the spasticity is due to the CVA versus MS, patient does state that he had some issues previously with MS but this is worse currently. Encouraged the patient to continue stretching while he is not in therapy. Patient is having hypotension at times which limits the available increases of baclofen Volume depletion: Patient not in taking enough oral hydration. Fluid status improved on yesterday's labs. Encourage patient to continue drinking as he currently is. Will monitor occasionally. Hypokalemia: Replace with potassium and monitor for improvement. Second dose of potassium today and will recheck BMP in the morning. Left foot drop: Patient is walking more with therapy. We will likely go ahead a nd move forward with an AFO. Hopefully this is something that he can continue at home and not rely solely on the motorized wheelchair until his endurance is a limiting factor based on the progression of his MS. We will look to get AFO ordered next week Neuropathy: Stable so far on current dose of Lyrica. Continue to monitor and adjust if needed. Constipation: Improving with bowel meds. Continue to monitor and adjust as needed. Variable pattern of bowel movements Asthma: Seems to be doing okay currently. We will continue medications and adjust as needed. MS: Patient uncertain of type however states that he is [facility] Seems to be a fairly aggressive type with the quickness of his deconditioning. Will concentrate on energy conservation with t herapy in order to improve his overall quality of life once he returns home. Patient does have a neurology tele-appointment scheduled for this Thursday. Will attempt to adjust therapy schedule so that he is getting therapy 7 days a week at slightly reduced amounts of time daily. ADL & mobility dysfunction: Continue therapy to improve patient's ability to perform self-care and ADLs as well as improve his mobility and transfers. Patient was able to walk in the hallway utilizing the RW with assistance, decreased ability currently due to weakness on the right side of the body which was unaffected from the stroke. All records, vitals, labs and medications were reviewed. No other issues per patient, nursing or therapy. Objective - Exam Narrative Exam: MUSCULOSKELETAL SPECIALTY EXAM CONSTITUTIONAL: Well developed, well nourished, appropriately groomed. RIGHT hand dominant. RESPIRATORY: Clear to auscultation bilaterally, no increased work of breathing CARDIOVASCULAR: Regular Rate/ Rhythm, no swelling, edema or tenderness in BUE or BLE. All extremities warm. GI: + bowel sounds, soft, NTTP, nondistended. INTEGUMENTARY: Normal, no lesion, rash, masses or bruising noted in extremities. MUSCULOSKELETAL: BUE and BLE normal without defect, crepitus, subluxation, effusion, arthritic changes or TTP. R 4+/5 L 1/5 for shoulder abduction, 3/5 at the biceps/triceps, 2/5 wheel filler, 1/5 lower extremity ROM within normal limits on the right, decreased on the left Tone normal on the right, increased on the left with variable spasticity. MAS 3/5 LLE & LUE (slightly better today on the upper extremity) NEURO: CN VII : Left facial droop CN XI : Impaired left shoulder shrug, improving CN XII : Tongue protrudes slightly to the left Sensation intact in all extremities without extinction. Sustained clonus left ankle. No tremor noted in 4 extremities. Naming and repetition intact. Follows 2 step commands. Aphasia not appreciated Dysarthria resolved Dysphagia resolved Neglect not appreciated POSTURE and GAIT: Sitting posture fair. Balance and gait fair with assistance to advance LLE and cues to correct posture. PSYCH: Alert, oriented x3, affect appears euthymic. Insight appears intact. - Constitutional Vitals: Vital Signs - 12hr 09/03/21 09/04/21 22:00 04:06 Temperature 98.6 F Pulse Rate 66 Respiratory 18 18 Rate Blood Pressure 96/69 O2 Sat by Pulse 98 98 Oximetry - Allied health notes Allied health notes reviewed: nursing, PT, OT FIMS assessment as documented by PT/OT/ST: Locomotion- walk/wheelchair Ambulation Distance 0 - Labs CBC & Chem 7: 09/02/21 09:45 09/02/21 09:45 Labs: Laboratory Results - last 72 hr 09/02/21 09/02/21 09:45 09:45 WBC 7.8 RBC 4.89 Hgb 13.1 Hct 38.4 MCV 79 L MCH 27 L MCHC 34 RDW 14.6 Plt Count 204 Sodium 141 Potassium 3.5 L Chloride 106.0 Carbon Dioxide 22 Anion Gap 17 BUN 19 Creatinine 0.7 L Estimated GFR > 60 BUN/Creatinine Ratio 27 Glucose 110 H Calcium 8.8 Assessment and Plan MCA CVA with left nondominant hemiparesis: Continue Secondary Stroke Prevention (Antithrombotic, Statin (Goal LDL-C <70), BP control (Goal <140/90), GLU control (Goal A1c <7), and lifestyle modification). Monitor for recurrent stroke or post-stroke recrudescence. Continue neuromotor therapy as above. Family training when available. Monitor for post stroke depression, cognitive deficits, seizure, dysphagia, aphasia, shoulder hand syndrome, sensory deficits, spasticity, bowel/bladder deficits, sleep disturbance, vision deficits and DVT. Prognosis for recovery and Secondary Stroke Prevention discussed. Follow up with Neurology. No driving until cleared by Neurologist. Dysarthria: [employer] has signed off, patient seems to be close to baseline. Improved a little more Dysphagia: [employer] is signed off, patient's dysphagia has improved and he is able to tolerate regular foods without any signs of aspiration. Continue to monitor for aspiration and reconsult if needed. Spasticity: Continue home baclofen. Look to increase if needed. Continue stre tching and teach patient on home stretching program in order to improve ability for range of motion. Patient is performing stretching routines in the room which he states is helping with tone. Due to intermittent hypotension, will be difficult to increase baclofen. We will continue stretching and medication to see if we can improve spasticity. Left foot drop: Continue working with the patient with physical therapy. Will consider utilizing AFO prior to discharge if patient is able to ambulate and he does not recover ability to dorsiflex. Neuropathy: Patient did not tolerate gabapentin previously which has been stopped. Is currently taking Lyrica and will adjust dose as needed. Hypokalemia: Replace potassium and recheck labs, monitor PTSD: Patient states that he is stopped seeing psychiatrist at the [facility] and feels like his PTSD is fairly well controlled. He does state that he continues to have nightmares at night which do disturb his sleep at times. We did discuss the use of prazosin however the patient does want to defer starting this currently. We will continue to monitor the patient for any signs of PTSD or nightmares interfering with his recovery and will address the issue again as needed. Constipation: Patient states that he can typically go a week or so without a katia wel movement. Will schedule bowel meds with hold for loose stools. Asthma: Albuterol tablets not available, have scheduled and as needed nebulizers available. Symbicort is also not on formulary but have ordered our in-house substitute. We will look to reduce this if able. Respiratory consult in place. Multiple sclerosis: Patient recently diagnosed after group home from the [employer]. [facility] Noted some neuropathy, weakness, and altered sensation from the MS prior to the stroke. Telehealth follow-up with outside neurology 09/04 for MS. Volume depletion: Patient states that he is not eating or drinking as much as he normally does. Continue to monitor and give fluids as needed. Encouraged patient to improve oral intake of fluids. ADL dysfunction: OT will work on improving ability to perform ADLs (including assistive devices) to increase independence and decrease caregiver burden and improve functional transfers and mobility training. Difficulty walking: PT will work on gait training and proper use of assistive devices and advance as appropriate to use of stairs and outside ambulation on uneven surfaces. Unsteadiness on feet: PT will work on improving static and dynamic sitting and standing balance as well as proper use of assistive devices to decrease risk of falls. Abnormality of gait: PT will work to improve safety and efficiency of gait through neuromotor training and gait training along with instruction on proper use of assistive devices. Muscle weakness: PT & OT will work on strengthening exercises to improve functional strength including mixture of closed and open kinetic chain exercises. Debility: PT & OT will work on improving overall functional status to improve participation with ADLs, mobility and social involvement. Fatigue: PT & OT will work on improving endurance through aerobic exercises and therapeutic activity while monitoring patients tolerance for activity and vital signs as needed. DVT ppx: Lovenox Pain: Continue physical modalities in therapy and pain medications as needed to achieve functional pain control. Sleep: Monitor and address as needed. Bowel: Monitor and address as needed. Appetite: Monitor and address as needed. Discharge planning: Pending therapy progress and care plan meeting. Will c ontinue discussion with therapy team, SW, patient and family. Tentatively looking to discharge on 09/12. Patient may need a hospital bed at discharge depending on his ability to perform transfers. Will likely need home health which [facility]. Restrictions/ Precautions: Falls, aspiration WB status: FWB Functional Hx: ADLs: Needed some assistance Cognition: Independent Mobility: Cane/RW/motorized wheelchair Barriers to Discharge: Decreased mobility and ability to perform self care, balance deficits, weakness Estimated Length of Stay: 1418 days Discharge Destination: Home with family
[2021-09-04] MEDS: ASPIRIN EC 81 MG TAB PO SCH (10:17)
[2021-09-04] MEDS: MELOXICAM 7.5 MG TAB PO SCH (10:17)
[2021-09-04] MEDS: CHOLECALCIFEROL (VIT D3) 1000 UNIT (25 mcg) TAB PO SCH (10:17)
[2021-09-04] MEDS: DOCUSATE SODIUM 100 MG CAP PO SCH ×2 (10:17→21:19)
[2021-09-04] MEDS: FERROUS SULFATE 325 MG TAB PO SCH (10:17)
[2021-09-04] MEDS: POTASSIUM CHLORIDE ER 20 MEQ TAB PO SCH (10:18)
[2021-09-04] MEDS: ENOXAPARIN 40 MG/0.4 ML INJ SUB-Q SCH (10:18)
[2021-09-04] MEDS: CLOPIDOGREL 75 MG TAB PO SCH (10:18)
[2021-09-04] MEDS: BACLOFEN 10 MG TAB PO SCH ×3 (10:21→21:15)
[2021-09-04] MEDS: PANTOPRAZOLE 40 MG TAB PO SCH (10:30)
[2021-09-05 07:44] LABS: Blood Urea Nitrogen 24 mg/dL (9-20); Calcium 8.5 mg/dL (8.4-10.2); Hemolysis Index 13
[2021-09-05 07:45] LABS: BUN/Creatinine Ratio 34
[2021-09-05] MEDS: BACLOFEN 10 MG TAB PO SCH ×3 (08:01→21:38)
[2021-09-05] MEDS: ENOXAPARIN 40 MG/0.4 ML INJ SUB-Q SCH ×2 (08:01→10:00)
[2021-09-05] MEDS: MELOXICAM 7.5 MG TAB PO SCH ×2 (08:01→10:00)
[2021-09-05] MEDS: ASPIRIN EC 81 MG TAB PO SCH ×2 (08:01→10:00)
[2021-09-05] MEDS: FERROUS SULFATE 325 MG TAB PO SCH ×2 (08:02→10:00)
[2021-09-05] MEDS: CHOLECALCIFEROL (VIT D3) 1000 UNIT (25 mcg) TAB PO SCH ×2 (08:02→10:00)
[2021-09-05] MEDS: PANTOPRAZOLE 40 MG TAB PO SCH (08:02)
[2021-09-05] MEDS: CLOPIDOGREL 75 MG TAB PO SCH ×2 (08:03→10:00)
--- NOTE | 2021-09-05 10:14 | Progress Note ---
Subjective Date of service: 09/05/21 Principal diagnosis: Right MCA CVA with left hemiparesis Interval history: 50-year-old male who presented to the outside hospital on 08/17 with complaints of spasms and left-sided facial droop accompanied by slurred speech. Initially his symptoms were considered to be related to an MS exacerbation and he was provided with steroids and discharged home. However he returned same day to the ER for repeated issues with continued facial droop. Further work-up with MRI showed an acute right MCA territory lacunar infarct involving the putamen, periventricular white matter and a portion of the posterior limb of the internal capsule. Given his age, hypercoagulable work-up was performed. Patient has moderate dysarthria and dysphagia. He was placed on a soft mechanical diet with thin liquids. Medication should be crushed in pure patient was started on secondary stroke prevention. He tolerated therapy well and was recommended for acute inpatient rehabilitation. After the patient was medically stabilized they were transferred for further rehabilitation. All available medical records have been reviewed. Plan of care was discussed with patient. He also has a history of multiple sclerosis with neuropathy and continues taking Lyrica at baseline as well as baclofen for occasional spasms. The patient ambulates with a cane or walker depending on his ability for the day. He has recently received a motorized wheelchair however is awaiting moving into a home with a mask from the main in order to be able to utilize that. Patient does state that he has issues with constipation. He just retired recently after 20+ years in the [employer] and does have symptoms associated with PTSD, discussed use of praises in for his vivid nightmares however at this point he is wanting to defer starting this medication. Will monitor for any effect his recovery and address again if needed. Interval History: Patient is participating in therapy and making reasonable progress. Taking rest breaks as needed. +BM. Denies pain, palpitations, dyspnea, cough, N/V, or joint pain. Overall, patient does have good outlook and attitude and is working hard with therapy to initiate improvement. Patient continues to work with therapy and is making progress towards goals of being able to return home. Patient had a better day yesterday and was able to ambulate. Therapy is going to work with him on utilizing a platform walker to see if that improves his ability to ambulate. CVA: Continue secondary stroke prevention, therapy. Monitor for any signs or symptoms of stroke recrudescence, shoulder-hand syndrome, worsening spasticity, post stroke depression, sleep disturbance. He does have weakness from prior with his MS which will complicate healing somewhat. Spasticity: Continue baclofen which patient was on previously for spasticity due to MS. Unclear as to how much of the spasticity is due to the CVA versus MS, patient does state that he had some issues previously with MS but this is worse currently. Encouraged the patient to continue stretching while he is not in therapy. Patient is having hypotension at times which limits the available increases of baclofen. Spasticity in the left upper extremity is improved today on exam. Volume depletion: Will monitor occasionally. Variable depending on patient's oral intake. Was improved previously and now is slowly getting worse. Patient states that he did not drink much yesterday. Hypokalemia: Replaced with potassium, resolved. Monitor for need to replace. Left foot drop: Patient is walking more with therapy. We will likely go ahead and move forward with an AFO. Hopefully this is something that he can continue at home and not rely solely on the motorized wheelchair until his endurance is a limiting factor based on the progression of his MS. We will look to get AFO ordered next week Neuropathy: Stable so far on current dose of Lyrica. Continue to monitor and adjust if needed. Constipation: Improving with bowel meds. Continue to monitor and adjust as needed. Variable pattern of bowel movements Asthma: Seems to be doing okay currently. We will continue medications and ad just as needed. MS: Patient uncertain of type however states that he is receiving injections from his physicians at the [facility]. Seems to be a fairly aggressive type with the quickness of his deconditioning. Will concentrate on energy conservation with therapy in order to improve his overall quality of life once he returns home. Will attempt to adjust therapy schedule so that he is getting therapy 7 days a week at slightly reduced amounts of time daily. Telehealth appointment on Thursday with neurology revealed that the patient's next injection is scheduled for September. ADL & mobility dysfunction: Continue therapy to improve patient's ability to perform self-care and ADLs as well as improve his mobility and transfers. Patient was able to walk in the hallway utilizing the RW with assistance, decreased ability currently due to weakness on the right side of the body which was unaffected from the stroke. All records, vitals, labs and medications were reviewed. No other issues per patient, nursing or therapy. Objective - Exam Narrative Exam: MUSCULOSKELETAL SPECIALTY EXAM CONSTITUTIONAL: Well developed, well nourished, appropriately groomed. RIGHT hand dominant. RESPIRATORY: Clear to auscultation bilaterally, no increased work of breathing CARDIOVASCULAR: Regular Rate/ Rhythm, no swelling, edema or tenderness in BUE or BLE. All extremities warm. GI: + bowel sounds, soft, NTTP, nondistended. INTEGUMENTARY: Normal, no lesion, rash, masses or bruising noted in extremities. MUSCULOSKELETAL: BUE and BLE normal without defect, crepitus, subluxation, effusion, arthritic changes or TTP. R 4+/5 L 1/5 for shoulder abduction, 3/5 at the biceps/triceps, 2/5 director of health care marketing, 1/5 lower extremity ROM within normal limits on the right, decreased on the left Tone normal on the right, increased on the left with variable spasticity. MAS 3/4 LLE & 2/4 LUE (typo noted on prior notes, MAS X/4) NEURO: CN VII : Left facial droop CN XI : Impaired left shoulder shrug, improving CN XII : Tongue protrudes slightly to the left Sensation intact in all extremities without extinction. Sustained clonus left ankle. No tremor noted in 4 extremities. Naming and repetition intact. Follows 2 step commands. Aphasia not appreciated Dysarthria resolved Dysphagia resolved Neglect not appreciated POSTURE and GAIT: Sitting posture fair. Balance and gait fair with assistance to advance LLE and cues to correct posture. PSYCH: Alert, oriented x3, affect appears euthymic. Insight appears intact. - Constitutional Vitals: Vital Signs - 12hr 09/05/21 09/05/21 05:10 07:49 Temperature 98.0 F 98.0 F Pulse Rate 57 L 67 Respiratory 14 18 Rate Blood Pressure 113/67 94/53 O2 Sat by Pulse 97 100 Oximetry - Allied health notes Allied health notes reviewed: nursing, PT, OT FIMS assessment as documented by PT/OT/ST: Locomotion- walk/wheelchair Ambulation Distance 0 - Labs CBC & Chem 7: 09/02/21 09:45 09/05/21 07:04 Labs: Laboratory Results - last 72 hr 09/02/21 09/02/21 09/05/21 09:45 09:45 07:04 WBC 7.8 RBC 4.89 Hgb 13.1 Hct 38.4 MCV 79 L MCH 27 L MCHC 34 RDW 14.6 Plt Count 204 Sodium 141 140 Potassium 3.5 L 3.9 Chloride 106.0 105.9 Carbon Dioxide 22 26 Anion Gap 17 12 BUN 19 24 H Creatinine 0.7 L 0.7 L Estimated GFR > 60 > 60 BUN/Creatinine Ratio 27 34 Glucose 110 H 82 Calcium 8.8 8.5 Assessment and Plan MCA CVA with left nondominant hemiparesis: Continue Secondary Stroke Prevention (Antithrombotic, Statin (Goal LDL-C <70), BP control (Goal <140/90), GLU control (Goal A1c <7), and lifestyle modification). Monitor for recurrent stroke or post-stroke recrudescence. Continue neuromotor therapy as above. Family training when available. Monitor for post stroke depression, cognitive deficits, seizure, dysphagia, aphasia, shoulder hand syndrome, sensory deficits, spasticity, bowel/bladder deficits, sleep disturbance, vision deficits and DVT. Prognosis for recovery and Secondary Stroke Prevention discussed. Follow up with Neurology. No driving until cleared by Neurologist. Dysarthria: TODDLER TEACHER has signed off, patient seems to be close to baseline. Improved a little more Dysphagia: TODDLER TEACHER is signed off, patient's dysphagia has improved and he is able to tolerate regular foods without any signs of aspiration. Continue to monitor for aspiration and reconsult if needed. Spasticity: Continue home baclofen. Look to increase if needed. Continue stretching and teach patient on home stretching program in order to improve ability for range of motion. Patient is performing stretching routines in the room which he states is helping with tone. Due to intermittent hypotension, will be difficult to increase baclofen. We will continue stretching and medication to see if we can improve spasticity. Left foot drop: Continue working with the patient with physical therapy. Will order AFO prior to discharge. Neuropathy: Patient did not tolerate gabapentin previously which has been stopped. Is currently taking Lyrica and will adjust dose as needed. Hypokalemia: Replaced potassium and recheck labs, currently resolved. Monitor PTSD: Patient states that he is stopped [facility] and feels like his PTSD is fairly well controlled. He does state that he continues to have nightmares at night which do disturb his sleep at times. We did discuss the use of prazosin however the patient does want to defer starting this currently. We will continue to monitor the patient for any signs of PTSD or nightmares interfering with his recovery and will address the issue again as needed. Constipation: Patient states that he can typically go a week or so without a bowel movement. Will schedule bowel meds with hold for loose stools. Asthma: Albuterol tablets not available, have scheduled and as needed nebulizers available. Symbicort is also not on formulary but have ordered our in-house substitute. We will look to reduce this if able. Respiratory consult in place. Multiple sclerosis: Patient recently diagnosed after senior living from the [employer]. [facility]ce[facility]. Noted some neuropathy, weakness, and altered sensation from the MS prior to the stroke. Telehealth follow-up with outside neurology 09/04 for MS. Volume depletion: Patient states that he is not eating or drinking as much as he normally does. Continue to monitor and give fluids as needed. Encouraged patient to improve oral intake of fluids. ADL dysfunction: OT will work on improving ability to perform ADLs (including assistive devices) to increase independence and decrease caregiver burden and improve functional transfers and mobility training. Difficulty walking: PT will work on gait training and proper use of assistive devices and advance as appropriate to use of stairs and outside ambulation on uneven surfaces. Unsteadiness on feet: PT will work on improving static and dynamic sitting and standing balance as well as proper use of assistive devices to decrease risk of falls. Abnormality of gait: PT will work to improve safety and efficiency of gait through neuromotor training and gait training along with instruction on proper use of assistive devices. Muscle weakness: PT & OT will work on strengthening exercises to improve functio nal strength including mixture of closed and open kinetic chain exercises. Debility: PT & OT will work on improving overall functional status to improve participation with ADLs, mobility and social involvement. Fatigue: PT & OT will work on improving endurance through aerobic exercises and therapeutic activity while monitoring patients tolerance for activity and vital signs as needed. DVT ppx: Lovenox Pain: Continue physical modalities in therapy and pain medications as needed to achieve functional pain control. Sleep: Monitor and address as needed. Bowel: Monitor and address as needed. Appetite: Monitor and address as needed. Discharge planning: Pending therapy progress and care plan meeting. Will continue discussion with therapy team, SW, patient and family. Tentatively looking to discharge on 09/12. Patient may need a hospital bed at discharge depending on his ability to perform transfers. Will likely need home health which [facility]. Restrictions/ Precautions: Falls, aspiration WB status: FWB Functional Hx: ADLs: Needed some assistance Cognition: Independent Mobility: Cane/RW/motorized wheelchair Barriers to Discharge: Decreased mobility and ability to perform self care, balance deficits, weakness Estimated Length of Stay: 1418 days Discharge Destination: Home with family
[2021-09-05] MEDS: DOCUSATE SODIUM 100 MG CAP PO SCH ×2 (12:59→21:38)
[2021-09-05] MEDS: POLYETHYLENE GLYCOL 3350 17 GM POWDER PO PRN (13:00)
[2021-09-06] MEDS: PANTOPRAZOLE 40 MG TAB PO SCH (08:30)
[2021-09-06] MEDS: BACLOFEN 10 MG TAB PO SCH ×3 (08:40→22:04)
[2021-09-06] MEDS: CLOPIDOGREL 75 MG TAB PO SCH (09:30)
[2021-09-06] MEDS: CHOLECALCIFEROL (VIT D3) 1000 UNIT (25 mcg) TAB PO SCH (09:30)
[2021-09-06] MEDS: ENOXAPARIN 40 MG/0.4 ML INJ SUB-Q SCH (09:30)
[2021-09-06] MEDS: MELOXICAM 7.5 MG TAB PO SCH (09:31)
[2021-09-06] MEDS: FERROUS SULFATE 325 MG TAB PO SCH (09:31)
[2021-09-06] MEDS: ASPIRIN EC 81 MG TAB PO SCH (09:31)
[2021-09-06] MEDS: DOCUSATE SODIUM 100 MG CAP PO SCH ×2 (09:33→22:04)
--- NOTE | 2021-09-06 17:57 | Progress Note ---
Subjective Date of service: 09/06/21 Principal diagnosis: Right MCA CVA with left hemiparesis Interval history: 50-year-old male who presented to the outside hospital on 08/17 with complaints of spasms and left-sided facial droop accompanied by slurred speech. Initially his symptoms were considered to be related to an MS exacerbation and he was provided with steroids and discharged home. However he returned same day to the ER for repeated issues with continued facial droop. Further work-up with MRI showed an acute right MCA territory lacunar infarct involving the putamen, periventricular white matter and a portion of the posterior limb of the internal capsule. Given his age, hypercoagulable work-up was performed. Patient has moderate dysarthria and dysphagia. He was placed on a soft mechanical diet with thin liquids. Medication should be crushed in pure patient was started on secondary stroke prevention. He tolerated therapy well and was recommended for acute inpatient rehabilitation. After the patient was medically stabilized they were transferred for further rehabilitation. All available medical records have been reviewed. Plan of care was discussed with patient. He also has a history of multiple sclerosis with neuropathy and continues taking Lyrica at baseline as well as baclofen for occasional spasms. The patient ambulates with a cane or walker depending on his ability for the day. He has recently received a motorized wheelchair however is awaiting moving into a home with a mask from the main in order to be able to utilize that. Patient does state that he has issues with constipation. He just retired recently after 20+ years in the [employer] and does have symptoms associated with PTSD, discussed use of praises in for his vivid nightmares however at this point he is wanting to defer starting this medication. Will monitor for any effect his recovery and address again if needed. Interval History: Patient is participating in therapy and making reasonable progress. Taking rest breaks as needed. +BM. Denies pain, palpitations, dyspnea, cough, N/V, or joint pain. Overall, patient does have good outlook and attitude and is working hard with therapy to initiate improvement. Patient continues to work with therapy and is making progress towards goals of being able to return home. CVA: Continue secondary stroke prevention, therapy. Monitor for any signs or symptoms of stroke recrudescence, shoulder-hand syndrome, worsening spasticity, post stroke depression, sleep disturbance. He does have weakness from prior with his MS which will complicate healing somewhat. Spasticity: Continue baclofen which patient was on previously for spasticity due to MS. Unclear as to how much of the spasticity is due to the CVA versus MS, patient does state that he had some issues previously with MS but this is worse currently. Encouraged the patient to continue stretching while he is not in therapy. Patient is having hypotension at times which limits the available increases of baclofen. Spasticity in the left upper extremity is stable today o n exam, LE is still increased. Volume depletion: Will monitor occasionally. Variable depending on patient's oral intake. Was improved previously and now is slowly getting worse. Patient is attempting to drink as much water as possible. Urine is very dark today. We will recheck labs tomorrow to ensure that renal function is not worsening Hypokalemia: Replaced with potassium, resolved. Monitor for need to replace. Left foot drop: Patient is walking more with therapy. We will likely go ahead and move forward with an AFO. Hopefully this is something that he can continue at home and not rely solely on the motorized wheelchair until his endurance is a limiting factor based on the progression of his MS. We will look to get AFO ordered next week Neuropathy: Stable so far on current dose of Lyrica. Continue to monitor and adjust if needed. Constipation: Improving with bowel meds. Continue to monitor and adjust as needed. Variable pattern of bowel movements Asthma: Seems to be doing okay currently. We will continue medications and adjust as needed. MS: Patient uncertain of type however states that he is receiving injections from his physicians at the [facility]. Seems to be a fairly aggressive type with the quickness of his deconditioning. Will concentrate on energy conservation with therapy in order to improve his overall quality of life once he returns home. Will attempt to adjust therapy schedule so that he is getting therapy 7 days a week at slightly reduced amounts of time daily. Telehealth appointment on Thursday with neurology revealed that the patient's next injection is scheduled for September. ADL & mobility dysfunction: Continue therapy to improve patient's ability to perform self-care and ADLs as well as improve his mobility and transfers. Patient was able to walk in the hallway utilizing the RW with assistance, decreased ability currently due to weakness on the right side of the body which was unaffected from the stroke. All records, vitals, labs and medications were reviewed. No other issues per patient, nursing or therapy. In total, greater than 65 minutes was invested in patient care today counseling and coordinating care with the therapy team, patient, and , unfortunately this was all done separately as the was not able to be on the phone at the same time that I was talking with either the staff or the patient and the staff was discussed down in the therapy office. is concerned that their house that they were moving to has fallen through which takes away the possibility of the patient moving into a first floor master bedroom and bath. The home that they currently live in is a rental and there are limited modifications that they can make to it. Best option currently is to install a ramp in the garage. There is also some confusion as to whether or not the patient has home [facility] already [facility]. I have heard multiple stories at this point, one was that the home health was approved by the [facility] for his MS prior to having the stroke, another was at the outside hospital relayed a message to them that home health was approved, and a third is that the has been approved to be the caregiver and be paid as a home health aide. At any rate, there is oftentimes a lag and home health approval in the [facility] system once the patient goes home. In this particular patient's case that would be detrimental to his recovery and would set him back as he did has both progressive MS as well as a stroke and without continuing his rehabilitation his recovery would suffer greatly. We are all going to contact the [facility] on Thursday to see if we can alleviate the confusion and get a fast-track approval for him to get home health therapy including nursing, PT, OT and possibly a home health care social worker once he gets home in order to continue making improvements in his recovery. The is working diligently on attempting to have a ramp built. VA contractor has apparently has already come out and given them estimates however the timeline for completion according to her would be a month or so away. She thinks that she can have someone build a suitable ramp in the garage on a quicker basis and is attempting to have that completed. I did discuss with both the patient, staff and the that as long as he is making progress we can continue working with him but he has to be making progress and not plateau so that there is no appreciable improvement. In short, will continue to do what ever we can do to help the gentleman improve his ability to provide self-care, alleviate caregiver burden, and improve his m obility. Have already looked at trying to emphasize transfers over ambulation. Will revisit next week after more therapy notes over the weekend. In light of the patient staying at their current home and sleeping on the ground floor, patient will need a hospital bed which will also improve his ability to perform transfers from the bed to the wheelchair. Initially we were hopeful that the need for hospital bed would be diminished based on the patient's recovery but he has not had significant enough recovery to be able to not obtained a hospital bed. Objective - Exam Narrative Exam: MUSCULOSKELETAL SPECIALTY EXAM CONSTITUTIONAL: Well developed, well nourished, appropriately groomed. RIGHT hand dominant. RESPIRATORY: Clear to auscultation bilaterally, no increased work of breathing CARDIOVASCULAR: Regular Rate/ Rhythm, no swelling, edema or tenderness in BUE or BLE. All extremities warm. GI: + bowel sounds, soft, NTTP, nondistended. INTEGUMENTARY: Normal, no lesion, rash, masses or bruising noted in extremities. MUSCULOSKELETAL: BUE and BLE normal without defect, crepitus, subluxation, effusion, arthritic changes or TTP. R 4+/5 L 1/5 for shoulder abduction, 3/5 at the biceps/triceps, 2/5 sole tacker, 1/5 lower extremity ROM within normal limits on the right, decreased on the left Tone normal on the right, increased on the left with variable spasticity. MAS 3/4 LLE & 2/4 LUE NEURO: CN VII : Left facial droop CN XI : Impaired left shoulder shrug, improving CN XII : Tongue protrudes slightly to the left Sensation intact in all extremities without extinction. Sustained clonus left ankle. No tremor noted in 4 extremities. Naming and repetition intact. Follows 2 step commands. Aphasia not appreciated Dysarthria resolved Dysphagia resolved Neglect not appreciated POSTURE and GAIT: Sitting posture fair. Balance and gait fair with assistance to advance LLE and cues to correct posture. PSYCH: Alert, oriented x3, affect appears euthymic. Insight appears intact. - Allied health notes Allied health notes reviewed: nursing, PT, OT FIMS assessment as documented by PT/OT/ST: Locomotion- walk/wheelchair Ambulation Distance 0 - Labs CBC & Chem 7: 09/02/21 09:45 09/05/21 07:04 Labs: Laboratory Results - last 72 hr 09/05/21 07:04 Sodium 140 Potassium 3.9 Chloride 105.9 Carbon Dioxide 26 Anion Gap 12 BUN 24 H Creatinine 0.7 L Estimated GFR > 60 BUN/Creatinine Ratio 34 Glucose 82 Calcium 8.5 Assessment and Plan MCA CVA with left nondominant hemiparesis: Continue Secondary Stroke Prevention (Antithrombotic, Statin (Goal LDL-C <70), BP control (Goal <140/90), GLU control (Goal A1c <7), and lifestyle modification). Monitor for recurrent stroke or post-stroke recrudescence. Continue neuromotor therapy as above. Family training when available. Monitor for post stroke depression, cognitive deficits, seizure, dysphagia, aphasia, shoulder hand syndrome, sensory deficits, spasticity, bowel/bladder deficits, sleep disturbance, vision deficits and DVT. Prognosis for recovery and Secondary Stroke Prevention discussed. Follow up with Neurology. No driving until cleared by Neurologist. Dysarthria: NURSE EXECUTIVE has signed off, patient seems to be close to baseline. Improved a little more Dysphagia: NURSE EXECUTIVE is signed off, patient's dysphagia has improved and he is able to tolerate regular foods without any signs of aspiration. Continue to monitor for aspiration and reconsult if needed. Spasticity: Continue home baclofen. Look to increase if needed. Continue stretching and teach patient on home stretching program in order to improve ability for range of motion. Patient is performing stretching routines in the room which he states is helping with tone. Due to intermittent hypotension, will be difficult to increase baclofen. We will continue stretching and medication to see if we can improve spasticity. Left foot drop: Continue working with the patient with physical therapy. Will order AFO prior to discharge. Neuropathy: Patient did not tolerate gabapentin previously which has been stopped. Is currently taking Lyrica and will adjust dose as needed. Hypokalemia: Replaced potassium and recheck labs, currently resolved. Monitor PTSD: Patient states that he is [facility] and feels like his PTSD is fairly well controlled. He does state that he continues to have nightmares at night which do disturb his sleep at times. We did discuss the use of prazosin however the patient does want to defer starting this currently. We will continue to monitor the patient for any signs of PTSD or nightmares interfering with his recovery and will address the issue again as needed. Constipation: Patient states that he can typically go a week or so without a bowel movement. Will schedule bowel meds with hold for loose stools. Asthma: Albuterol tablets not available, have scheduled and as needed nebulizers available. Symbicort is also not on formulary but have ordered our in-house substitute. We will look to reduce this if able. Respiratory consult in place. Multiple sclerosis: Patient recently diagnosed after assisted from the [employer]. [facility] Noted some neuropathy, weakness, and altered sensation from the MS prior to the stroke. Telehealth follow-up with outside neurology 09/04 for MS. Volume depletion: Patient states that he is not eating or drinking as much as he normally does. Continue to monitor and give fluids as needed. Encouraged patient to improve oral intake of fluids. ADL dysfunction: OT will work on improving ability to perform ADLs (including assistive devices) to increase independence and decrease caregiver burden and improve functional transfers and mobility training. Difficulty walking: PT will work on gait training and proper use of assistive devices and advance as appropriate to use of stairs and outside ambulation on uneven surfaces. Unsteadiness on feet: PT will work on improving static and dynamic sitting and standing balance as well as proper use of assistive devices to decrease risk of falls. Abnormality of gait: PT will work to improve safety and efficiency of gait through neuromotor training and gait training along with instruction on proper use of assistive devices. Muscle weakness: PT & OT will work on strengthening exercises to improve functional strength including mixture of closed and open kinetic chain exercises. Debility: PT & OT will work on improving overall functional status to improve participation with ADLs, mobility and social involvement. Fatigue: PT & OT will work on improving endurance through aerobic exercises and therapeutic activity while monitoring patients tolerance for activity and vital signs as needed. DVT ppx: Lovenox Pain: Continue physical modalities in therapy and pain medications as needed to achieve functional pain control. Sleep: Monitor and address as needed. Bowel: Monitor and address as needed. Appetite: Monitor and address as needed. Discharge planning: Pending therapy progress and care plan meeting. Will continue discussion with therapy team, SW, patient and family. Tentatively looking to discharge on 09/12 but will likely extend at this point. Patient will most likely need a hospital bed at discharge in order to allow the patient to receive care with hygiene, improve his ability to transfer out of the bed and into a wheelchair, and adjust positioning in order to reduce risk for bedsores. Will need home health as well and we will follow up with the [facility] on Thursday as to whether or not this has been approved as previously informed. Restrictions/ Precautions: Falls, aspiration WB status: FWB Functional Hx: ADLs: Needed some assistance Cognition: Independent Mobility: Cane/RW/motorized wheelchair Barriers to Discharge: Decreased mobility and ability to perform self care, b alance deficits, weakness Estimated Length of Stay: 1418 days Discharge Destination: Home with family
[2021-09-06] MEDS: POLYETHYLENE GLYCOL 3350 17 GM POWDER PO PRN (22:04)
[2021-09-07] MEDS: CHOLECALCIFEROL (VIT D3) 1000 UNIT (25 mcg) TAB PO SCH (09:20)
[2021-09-07] MEDS: PANTOPRAZOLE 40 MG TAB PO SCH (09:20)
[2021-09-07] MEDS: MELOXICAM 7.5 MG TAB PO SCH (09:20)
[2021-09-07] MEDS: CLOPIDOGREL 75 MG TAB PO SCH (09:20)
[2021-09-07] MEDS: ASPIRIN EC 81 MG TAB PO SCH (09:20)
[2021-09-07] MEDS: FERROUS SULFATE 325 MG TAB PO SCH (09:21)
[2021-09-07] MEDS: BACLOFEN 10 MG TAB PO SCH ×3 (09:21→22:29)
[2021-09-07] MEDS: DOCUSATE SODIUM 100 MG CAP PO SCH ×2 (09:21→22:28)
[2021-09-07] MEDS: ENOXAPARIN 40 MG/0.4 ML INJ SUB-Q SCH (09:22)
[2021-09-07 09:46] LABS: Hematocrit 35.9 % (35.5-45.6); Hemoglobin 12.1 gm/dl (11.8-15.2); Mean Corpuscular HGB Conc 34 % (32-34); Mean Corpuscular Volume 79 fl (84-94); Platelet Count 184 K/mm3 (140-440); Red Blood Count 4.55 M/mm3 (3.65-5.03); Red Cell Distribution Width 14.6 % (13.2-15.2)
[2021-09-07 10:05] LABS: BUN/Creatinine Ratio 28; Blood Urea Nitrogen 22 mg/dL (9-20); Calcium 8.5 mg/dL (8.4-10.2); Hemolysis Index 32
[2021-09-08] MEDS: CHOLECALCIFEROL (VIT D3) 1000 UNIT (25 mcg) TAB PO SCH (09:00)
[2021-09-08] MEDS: ASPIRIN EC 81 MG TAB PO SCH (09:00)
[2021-09-08] MEDS: FERROUS SULFATE 325 MG TAB PO SCH (09:00)
[2021-09-08] MEDS: PANTOPRAZOLE 40 MG TAB PO SCH (09:01)
[2021-09-08] MEDS: DOCUSATE SODIUM 100 MG CAP PO SCH ×2 (09:01→22:30)
[2021-09-08] MEDS: MELOXICAM 7.5 MG TAB PO SCH (09:01)
[2021-09-08] MEDS: CLOPIDOGREL 75 MG TAB PO SCH (09:01)
[2021-09-08] MEDS: BACLOFEN 10 MG TAB PO SCH ×3 (09:01→22:30)
[2021-09-08] MEDS: ENOXAPARIN 40 MG/0.4 ML INJ SUB-Q SCH (09:01)
[2021-09-08] MEDS: POLYETHYLENE GLYCOL 3350 17 GM POWDER PO PRN ×2 (09:06→13:59)
[2021-09-09] MEDS: ASPIRIN EC 81 MG TAB PO SCH (09:07)
[2021-09-09] MEDS: ENOXAPARIN 40 MG/0.4 ML INJ SUB-Q SCH (09:07)
[2021-09-09] MEDS: FERROUS SULFATE 325 MG TAB PO SCH (09:07)
[2021-09-09] MEDS: BACLOFEN 10 MG TAB PO SCH ×3 (09:08→22:10)
[2021-09-09] MEDS: DOCUSATE SODIUM 100 MG CAP PO SCH ×2 (09:08→22:11)
[2021-09-09] MEDS: PANTOPRAZOLE 40 MG TAB PO SCH (09:08)
[2021-09-09] MEDS: CHOLECALCIFEROL (VIT D3) 1000 UNIT (25 mcg) TAB PO SCH (09:08)
[2021-09-09] MEDS: MELOXICAM 7.5 MG TAB PO SCH (09:08)
[2021-09-09] MEDS: CLOPIDOGREL 75 MG TAB PO SCH (09:11)
--- NOTE | 2021-09-09 13:43 | Progress Note ---
Subjective Date of service: 09/09/21 Principal diagnosis: Right MCA CVA with left hemiparesis Interval history: 50-year-old male who presented to the outside hospital on 08/17 with complaints of spasms and left-sided facial droop accompanied by slurred speech. Initially his symptoms were considered to be related to an MS exacerbation and he was provided with steroids and discharged home. However he returned same day to the ER for repeated issues with continued facial droop. Further work-up with MRI showed an acute right MCA territory lacunar infarct involving the putamen, periventricular white matter and a portion of the posterior limb of the internal capsule. Given his age, hypercoagulable work-up was performed. Patient has moderate dysarthria and dysphagia. He was placed on a soft mechanical diet with thin liquids. Medication should be crushed in pure patient was started on secondary stroke prevention. He tolerated therapy well and was recommended for acute inpatient rehabilitation. After the patient was medically stabilized they were transferred for further rehabilitation. All available medical records have been reviewed. Plan of care was discussed with patient. He also has a history of multiple sclerosis with neuropathy and continues taking Lyrica at baseline as well as baclofen for occasional spasms. The patient ambulates with a cane or walker depending on his ability for the day. He has recently received a motorized wheelchair however is awaiting moving into a home with a mask from the main in order to be able to utilize that. Patient does state that he has issues with constipation. He just retired recently after 20+ years in the [employer] and does have symptoms associated with PTSD, discussed use of praises in for his vivid nightmares however at this point he is wanting to defer starting this medication. Will monitor for any effect his recovery and address again if needed. Interval History: Patient is participating in therapy and making reasonable progress. Taking rest breaks as needed. +BM. Denies pain, palpitations, dyspnea, cough, N/V, or joint pain. Overall, patient does have good outlook and attitude and is working hard with therapy to initiate improvement. Patient continues to work with therapy and is making progress towards goals of being able to return home. CVA: Continue secondary stroke prevention, therapy. Monitor for any signs or symptoms of stroke recrudescence, shoulder-hand syndrome, worsening spasticity, post stroke depression, sleep disturbance. He does have weakness from prior with his MS which will complicate healing somewhat. Spasticity: Continue baclofen which patient was on previously for spasticity due to MS. Unclear as to how much of the spasticity is due to the CVA versus MS, patient does state that he had some issues previously with MS but this is worse currently. Encouraged the patient to continue stretching while he is not in therapy. Patient is having hypotension at times which limits the available increases of baclofen. Spasticity is stable today on exam. Volume depletion: Will monitor occasionally. Variable depending on patient's oral intake. Was improved previously and now is slowly getting worse. Patient is attempting to drink as much water as possible. Urine is very dark today. We will recheck labs tomorrow to ensure that renal function is not worsening Hypokalemia: Replaced with potassium, resolved. Monitor for need to replace. Left foot drop: Patient is walking more with therapy. We will likely go ahead and move forward with an AFO. Hopefully this is something that he can continue at home and not rely solely on the motorized wheelchair until his endurance is a limiting factor based on the progression of his MS. We will look to get AFO ordered next week Neuropathy: Stable so far on current dose of Lyrica. Continue to monitor and adjust if needed. Constipation: Improving with bowel meds. Continue to monitor and adjust as needed. Variable pattern of bowel movements. Constipation over the weekend which improved with suppositories. Encourage patient to continue taking oral medications. Asthma: Seems to be doing okay currently. We will continue medications and adjust as needed. MS: Patient uncertain of type however states that he is receiving injections from his physicians at the [facility]. Seems to be a fairly aggressive type with the q uickness of his deconditioning. Will concentrate on energy conservation with therapy in order to improve his overall quality of life once he returns home. Will attempt to adjust therapy schedule so that he is getting therapy 7 days a week at slightly reduced amounts of time daily. Telehealth appointment on Thursday with neurology revealed that the patient's next injection is scheduled for September. ADL & mobility dysfunction: Continue therapy to improve patient's ability to perform self-care and ADLs as well as improve his mobility and transfers. Patient was able to walk in the hallway utilizing the RW with assistance, decreased ability currently due to weakness on the right side of the body which was unaffected from the stroke. All records, vitals, labs and medications were reviewed. No other issues per patient, nursing or therapy. Objective - Exam Narrative Exam: MUSCULOSKELETAL SPECIALTY EXAM CONSTITUTIONAL: Well developed, well nourished, appropriately groomed. RIGHT hand dominant. RESPIRATORY: Clear to auscultation bilaterally, no increased work of breathing CARDIOVASCULAR: Regular Rate/ Rhythm, no swelling, edema or tenderness in BUE or BLE. All extremities warm. GI: + bowel sounds, soft, NTTP, nondistended. INTEGUMENTARY: Normal, no lesion, rash, masses or bruising noted in extremities. MUSCULOSKELETAL: BUE and BLE normal without defect, crepitus, subluxation, effusion, arthritic changes or TTP. R 4+/5 L 1/5 for shoulder abduction, 3/5 at the biceps/triceps, 2/5 ballistics expert forensic, 1/5 lower extremity ROM within normal limits on the right, decreased on the left Tone normal on the right, increased on the left with variable spasticity. MAS 3/4 LLE & 2/4 LUE NEURO: CN VII : Left facial droop CN XI : Impaired left shoulder shrug, improving CN XII : Tongue protrudes slightly to the left Sensation intact in all extremities without extinction. Sustained clonus left ankle. No tremor noted in 4 extremities. Naming and repetition intact. Follows 2 step commands. Aphasia not appreciated Dysarthria resolved Dysphagia resolved Neglect not appreciated POSTURE and GAIT: Sitting posture fair. Balance and gait fair with assistance to advance LLE and cues to correct posture. PSYCH: Alert, oriented x3, affect appears euthymic. Insight appears intact. - Constitutional Vitals: Vital Signs - 12hr 09/09/21 08:05 Temperature 98.4 F Pulse Rate 61 Respiratory 18 Rate Blood Pressure 100/66 O2 Sat by Pulse 99 Oximetry - Allied health notes Allied health notes reviewed: nursing, PT, OT FIMS assessment as documented by PT/OT/ST: Locomotion- walk/wheelchair Ambulation Distance 0 - Labs CBC & Chem 7: 09/07/21 08:58 09/07/21 08:58 Labs: Laboratory Results - last 72 hr 09/07/21 09/07/21 08:58 08:58 WBC 8.5 RBC 4.55 Hgb 12.1 Hct 35.9 MCV 79 L MCH 27 L MCHC 34 RDW 14.6 Plt Count 184 Sodium 141 Potassium 4.1 Chloride 106.7 Carbon Dioxide 25 Anion Gap 13 BUN 22 H Creatinine 0.8 Estimated GFR > 60 BUN/Creatinine Ratio 28 Glucose 82 Calcium 8.5 Assessment and Plan MCA CVA with left nondominant hemiparesis: Continue Secondary Stroke Prevention (Antithrombotic, Statin (Goal LDL-C <70), BP control (Goal <140/90), GLU control (Goal A1c <7), and lifestyle modification). Monitor for recurrent stroke or post-stroke recrudescence. Continue neuromotor therapy as above. Family training when available. Monitor for post stroke depression, cognitive deficits, seizure, dysphagia, aphasia, shoulder hand syndrome, sensory deficits, spasticity, bowel/bladder deficits, sleep disturbance, vision deficits and DVT. Prognosis for recovery and Secondary Stroke Prevention discussed. Follow up with Neurology. No driving until cleared by Neurologist. Dysarthria: DIVISION H[employer]AN RESOURCES MANAGER has signed off, patient seems to be close to baseline. Improved a little more Dysphagia: DIVISION HUMAN RESOURCES MANAGER is signed off, patient's dysphagia has improved and he is able to tolerate regular foods without any signs of aspiration. Continue to monitor for aspiration and reconsult if needed. Spasticity: Continue home baclofen. Look to increase if needed. Continue stretching and teach patient on home stretching program in order to improve ability for range of motion. Patient is performing stretching routines in the room which he states is helping with tone. Due to intermittent hypotension, will be difficult to increase baclofen. We will continue stretching and medication to see if we can improve spasticity. Left foot drop: Continue working with the patient with physical therapy. Will order AFO prior to discharge. Neuropathy: Patient did not tolerate gabapentin previously which has been stopped. Is currently taking Lyrica and will adjust dose as needed. Hypokalemia: Replaced potassium and recheck labs, currently resolved. Monitor PTSD: Patient states that he is stopped seeing psychiatrist at the [facility] and feels like his PTSD is fairly well controlled. He does state that he continues to have nightmares at night which do disturb his sleep at times. We did discuss the use of prazosin however the patient does want to defer starting this currently. We will continue to monitor the patient for any signs of PTSD or nightmares interfering with his recovery and will address the issue again as needed. Constipation: Patient states that he can typically go a week or so without a bowel movement. Will schedule bowel meds with hold for loose stools. Asthma: Albuterol tablets not available, have scheduled and as needed nebulizers available. Symbicort is also not on formulary but have ordered our in-house substitute. We will look to reduce this if able. Respiratory consult in place. Multiple sclerosis: Patient recently diagnosed after correction from the [employer]. [facility] Noted some neuropathy, weakness, and altered sensation from the MS prior to the stroke. Telehealth follow-up with outside neurology 09/04 for MS. Volume depletion: Patient states that he is not eating or drinking as much as he normally does. Continue to monitor and give fluids as needed. Encouraged patient to improve oral intake of fluids. ADL dysfunction: OT will work on improving ability to perform ADLs (including assistive devices) to increase independence and decrease caregiver burden and improve functional transfers and mobility training. Difficulty walking: PT will work on gait training and proper use of assistive devices and advance as appropriate to use of stairs and outside ambulation on uneven surfaces. Unsteadiness on feet: PT will work on improving static and dynamic sitting and standing balance as well as proper use of assistive devices to decrease risk of falls. Abnormality of gait: PT will work to improve safety and efficiency of gait through neuromotor training and gait training along with instruction on proper use of assistive devices. Muscle weakness: PT & OT will work on strengthening exercises to improve functional strength including mixture of closed and open kinetic chain exercises. Debility: PT & OT will work on improving overall functional status to improve participation with ADLs, mobility and social involvement. Fatigue: PT & OT will work on improving endurance through aerobic exercises and therapeutic activity while monitoring patients tolerance for activity and vital signs as needed. DVT ppx: Lovenox Pain: Continue physical modalities in therapy and pain medications as needed to achieve functional pain control. Sleep: Monitor and address as needed. Bowel: Monitor and address as needed. Appetite: Monitor and address as needed. Discharge planning: Pending therapy progress and care plan meeting. Will continue discussion with therapy team, SW, patient and family. Tentatively looking to discharge on 09/12 but will likely extend at this point. Patient will most likely need a hospital bed at discharge in order to allow the patient to receive care with hygiene, improve his ability to transfer out of the bed and into a wheelchair, and adjust positioning in order to reduce risk for bedsores. Will need home health as well and we will follow up with the [facility] on Thursday (closed on Thursday due to ) as to whether or not this has been approved as previously informed. Restrictions/ Precautions: Falls, aspiration WB status: FWB Functional Hx: ADLs: Needed some assistance Cognition: Independent Mobility: Cane/RW/motorized wheelchair Barriers to Discharge: Decreased mobility and ability to perform self care, balance deficits, weakness Estimated Length of Stay: 1418 days Discharge Destination: Home with family
[2021-09-10] MEDS: PANTOPRAZOLE 40 MG TAB PO SCH (07:45)
--- NOTE | 2021-09-10 09:50 | Progress Note ---
Subjective Date of service: 09/10/21 Principal diagnosis: Right MCA CVA with left hemiparesis Interval history: 50-year-old male who presented to the outside hospital on 08/17 with complaints of spasms and left-sided facial droop accompanied by slurred speech. Initially his symptoms were considered to be related to an MS exacerbation and he was provided with steroids and discharged home. However he returned same day to the ER for repeated issues with continued facial droop. Further work-up with MRI showed an acute right MCA territory lacunar infarct involving the putamen, periventricular white matter and a portion of the posterior limb of the internal capsule. Given his age, hypercoagulable work-up was performed. Patient has moderate dysarthria and dysphagia. He was placed on a soft mechanical diet with thin liquids. Medication should be crushed in pure patient was started on secondary stroke prevention. He tolerated therapy well and was recommended for acute inpatient rehabilitation. After the patient was medically stabilized they were transferred for further rehabilitation. All available medical records have been reviewed. Plan of care was discussed with patient. He also has a history of multiple sclerosis with neuropathy and continues taking Lyrica at baseline as well as baclofen for occasional spasms. The patient ambulates with a cane or walker depending on his ability for the day. He has recently received a motorized wheelchair however is awaiting moving into a home with a mask from the main in order to be able to utilize that. Patient does state that he has issues with constipation. He just retired recently after 20+ years in the [employer] and does have symptoms associated with PTSD, discussed use of praises in for his vivid nightmares however at this point he is wanting to defer starting this medication. Will monitor for any effect his recovery and address again if needed. Interval History: Patient is participating in therapy and making reasonable progress. Taking rest breaks as needed. +BM. Denies pain, palpitations, dyspnea, cough, N/V, or joint pain. Overall, patient does have good outlook and attitude and is working hard with therapy to initiate improvement. Patient continues to work with therapy and is making progress towards goals of being able to return home. CVA: Continue secondary stroke prevention, therapy. Monitor for any signs or symptoms of stroke recrudescence, shoulder-hand syndrome, worsening spasticity, post stroke depression, sleep disturbance. He does have weakness from prior with his MS which will complicate healing somewhat. Spasticity: Continue baclofen which patient was on previously for spasticity due to MS. Unclear as to how much of the spasticity is due to the CVA versus MS, patient does state that he had some issues previously with MS but this is worse currently. Encouraged the patient to continue stretching while he is not in therapy. Patient is having hypotension at times which limits the available increases of baclofen. Spasticity is stable today on exam. Encouraged patient to follow-up with his neurologist as an outpatient who may decide to change baclofen to another agent. Volume depletion: Will monitor occasionally. Variable depending on patient's oral intake. Was improved previously and now is slowly getting worse. Patient is attempting to drink as much water as possible. Hypokalemia: Replaced with potassium, resolved. Monitor for need to replace. Left foot drop: Patient is walking more with therapy. We will likely go ahead and move forward with an AFO. Hopefully this is something that he can continue at home and not rely solely on the motorized wheelchair until his endurance is a limiting factor based on the progression of his MS. Neuropathy: Stable so far on current dose of Lyrica. Continue to monitor and adjust if needed. Constipation: Improving with bowel meds. Continue to monitor and adjust as needed. Variable pattern of bowel movements. Constipation over the weekend which improved with suppositories. Encourage patient to continue taking oral medications. Asthma: Seems to be doing okay currently. We will continue medications and adjust as needed. MS: Patient uncertain of type however states that he is receiving [facility]. Seems to be a fairly aggressive type with the quickness of his deconditioning. Will concentrate on energy conservation with therapy in order to improve his overall quality of life once he returns home. Will attempt to adjust therapy schedule so that he is getting therapy 7 days a week at slightly reduced amounts of time daily. Telehealth appointment on Thursday with neurology revealed that the patient's next injection is scheduled for September. ADL & mobility dysfunction: Continue therapy to improve patient's ability to perform self-care and ADLs as well as improve his mobility and transfers. Patient was able to walk in the hallway utilizing the RW with assistance, decreased ability currently due to weakness on the right side of the body which was unaffected from the stroke. All records, vitals, labs and medications were reviewed. No other issues per patient, nursing or therapy. Patient discussed during team conference today. Still having a tough time making progress and has good and bad days likely related to the MS. As communicated to both him and his , we are not able to keep him here longer than he is benefiting and will need to continue pushing forward with discharge which at this point we will schedule for next Thursday. [facility] and will attempt to move the process along with the hospital bed. According to the patient the ramp in the garage has been built over the weekend. Spoke with the about the above issues. Will need to schedule car transfer training this week. In total, greater than 42 minutes was invested in patient care today counseling and coordinating care. Objective - Exam Narrative Exam: MUSCULOSKELETAL SPECIALTY EXAM CONSTITUTIONAL: Well developed, well nourished, appropriately groomed. RIGHT hand dominant. RESPIRATORY: Clear to auscultation bilaterally, no increased work of breathing CARDIOVASCULAR: Regular Rate/ Rhythm, no swelling, edema or tenderness in BUE or BLE. All extremities warm. GI: + bowel sounds, soft, NTTP, nondistended. INTEGUMENTARY: Normal, no lesion, rash, masses or bruising noted in extremities. MUSCULOSKELETAL: BUE and BLE normal without defect, crepitus, subluxation, effusion, arthritic changes or TTP. R 4+/5 L 1/5 for shoulder abduction, 3/5 at the biceps/triceps, 2/5 collar baster, 1/5 l ower extremity ROM within normal limits on the right, decreased on the left Tone normal on the right, increased on the left with variable spasticity. MAS 3/4 LLE & 2/4 LUE NEURO: CN VII : Left facial droop CN XI : Impaired left shoulder shrug, improving CN XII : Tongue protrudes slightly to the left Sensation intact in all extremities without extinction. Sustained clonus left ankle. No tremor noted in 4 extremities. Naming and repetition intact. Follows 2 step commands. Aphasia not appreciated Dysarthria resolved Dysphagia resolved Neglect not appreciated POSTURE and GAIT: Sitting posture fair. Balance and gait fair with assistance to advance LLE and cues to correct posture. PSYCH: Alert, oriented x3, affect appears euthymic. Insight appears intact. - Constitutional Vitals: Vital Signs - 12hr 09/09/21 09/09/21 09/10/21 22:00 22:53 08:16 Temperature 98.2 F Pulse Rate 56 L Respiratory 18 Rate Blood Pressure 110/72 [Left] O2 Sat by Pulse 99 97 100 Oximetry - Allied health notes Allied health notes reviewed: nursing, PT, OT FIMS assessment as documented by PT/OT/ST: Locomotion- walk/wheelchair Ambulation Distance 0 - Labs CBC & Chem 7: 09/07/21 08:58 09/07/21 08:58 Labs: Laboratory Results - last 72 hr 09/07/21 09/07/21 08:58 08:58 WBC 8.5 RBC 4.55 Hgb 12.1 Hct 35.9 MCV 79 L MCH 27 L MCHC 34 RDW 14.6 Plt Count 184 Sodium 141 Potassium 4.1 Chloride 106.7 Carbon Dioxide 25 Anion Gap 13 BUN 22 H Creatinine 0.8 Estimated GFR > 60 BUN/Creatinine Ratio 28 Glucose 82 Calcium 8.5 Assessment and Plan MCA CVA with left nondominant hemiparesis: Continue Secondary Stroke Prevention (Antithrombotic, Statin (Goal LDL-C <70), BP control (Goal <140/90), GLU control (Goal A1c <7), and lifestyle modification). Monitor for recurrent stroke or post-stroke recrudescence. Continue neuromotor therapy as above. Family training when available. Monitor for post stroke depression, cognitive deficits, seizure, dysphagia, aphasia, shoulder hand syndrome, sensory deficits, spasticity, bowel/bladder deficits, sleep disturbance, vision deficits and DVT. Prognosis for recovery and Secondary Stroke Prevention discussed. Follow up with Neurology. No driving until cleared by Neurologist. Dysarthria: CONTRACTING OFFICER has signed off, patient seems to be close to baseline. Dysphagia: CONTRACTING OFFICER is signed off, patient's dysphagia has improved and he is able to tolerate regular foods without any signs of aspiration. Continue to monitor for aspiration and reconsult if needed. Spasticity: Continue home baclofen. Look to increase if needed. Continue stretching and teach patient on home stretching program in order to improve ability for range of motion. Patient is performing stretching routines in the room which he states is helping with tone. Due to intermittent hypotension, will be difficult to increase baclofen. We will continue stretching and medication to see if we can improve spasticity. Left foot drop: Continue working with the patient with physical therapy. Will order AFO prior to discharge. Neuropathy: Patient did not tolerate gabapentin previously which has been stoppe d. Is currently taking Lyrica and will adjust dose as needed. Hypokalemia: Replaced potassium and recheck labs, currently resolved. Monitor PTSD: Patient states that he is stopped seeing psychiatrist at the [facility] and feels like his PTSD is fairly well controlled. He does state that he continues to have nightmares at night which do disturb his sleep at times. We did discuss the use of prazosin however the patient does want to defer starting this currently. We will continue to monitor the patient for any signs of PTSD or nightmares interfering with his recovery and will address the issue again as needed. Constipation: Patient states that he can typically go a week or so without a bowel movement. Will schedule bowel meds with hold for loose stools. Asthma: Albuterol tablets not available, have scheduled and as needed nebulizers available. Symbicort is also not on formulary but have ordered our in-house substitute. We will look to reduce this if able. Respiratory consult in place. Multiple sclerosis: Patient recently diagnosed after half-way from the [employer]. Receives injections at the [facility]. Noted some neuropathy, weakness, and altered sensation from the MS prior to the stroke. Telehealth follow-up with outside neurology 09/04 for MS. Volume depletion: Patient states that he is not eating or drinking as much as he normally does. Continue to monitor and give fluids as needed. Encouraged patient to improve oral intake of fluids. ADL dysfunction: OT will work on improving ability to perform ADLs (including assistive devices) to increase independence and decrease caregiver burden and improve functional transfers and mobility training. Difficulty walking: PT will work on gait training and proper use of assistive devices and advance as appropriate to use of stairs and outside ambulation on uneven surfaces. Unsteadiness on feet: PT will work on improving static and dynamic sitting and standing balance as well as proper use of assistive devices to decrease risk of falls. Abnormality of gait: PT will work to improve safety and efficiency of gait through neuromotor training and gait training along with instruction on proper use of assistive devices. Muscle weakness: PT & OT will work on strengthening exercises to improve functional strength including mixture of closed and open kinetic chain exercises. Debility: PT & OT will work on improving overall functional status to improve participation with ADLs, mobility and social involvement. Fatigue: PT & OT will work on improving endurance through aerobic exercises and therapeutic activity while monitoring patients tolerance for activity and vital signs as needed. DVT ppx: Lovenox Pain: Continue physical modalities in therapy and pain medications as needed to achieve functional pain control. Sleep: Monitor and address as needed. Bowel: Monitor and address as needed. Appetite: Monitor and address as needed. Discharge planning: Pending therapy progress and care plan meeting. Will continu e discussion with therapy team, SW, patient and family. Looking to discharge next Thursday. Patient will most likely need a hospital bed at discharge in order to allow the patient to receive care with hygiene, improve his ability to transfer out of the bed and into a wheelchair, and adjust positioning in order to reduce risk for bedsores. Will need home health as well and [facility] or not [facility] as previously informed. Restrictions/ Precautions: Falls, aspiration WB status: FWB Functional Hx: ADLs: Needed some assistance Cognition: Independent Mobility: Cane/RW/motorized wheelchair Barriers to Discharge: Decreased mobility and ability to perform self care, balance deficits, weakness Estimated Length of Stay: 1418 days Discharge Destination: Home with family DME: Patient will be discharged with a hospital bed which he needs in order to be able to perform transfers in a safe manner. Due to the patient's weakness from MS as well as the increased weakness and spasticity from the CVA, he is unable to perform transfers from a normal bed and adjustable hospital bed will allow him to utilize rails for bed mobility which will help prevent bedsores as well as improve his ability to transfer out of the bed to the wheelchair. Hospital bed will also allow for improvement in the ability for the caregiver to provide care and helping patient to clean up and dress. Patient has all other DME available including a motorized wheelchair, walker, and cane. At this point with the patient's ongoing issues with fatigue and diagnosis of MS, we are going to concentrate on energy conservation which will also be aided by the use of a hospital bed for changing positions and reducing the amount of effort needed to perform bed to wheelchair transfers.
[2021-09-10] MEDS: ENOXAPARIN 40 MG/0.4 ML INJ SUB-Q SCH (11:50)
[2021-09-10] MEDS: MELOXICAM 7.5 MG TAB PO SCH (11:50)
[2021-09-10] MEDS: DOCUSATE SODIUM 100 MG CAP PO SCH ×2 (11:50→22:11)
[2021-09-10] MEDS: BACLOFEN 10 MG TAB PO SCH ×4 (11:50→22:08)
[2021-09-10] MEDS: CLOPIDOGREL 75 MG TAB PO SCH (11:50)
[2021-09-10] MEDS: FERROUS SULFATE 325 MG TAB PO SCH (11:50)
[2021-09-10] MEDS: CHOLECALCIFEROL (VIT D3) 1000 UNIT (25 mcg) TAB PO SCH (11:50)
[2021-09-10] MEDS: ASPIRIN EC 81 MG TAB PO SCH (11:50)
[2021-09-10 16:39] LABS: Hematocrit 36.3 % (35.5-45.6); Hemoglobin 12.2 gm/dl (11.8-15.2); Mean Corpuscular HGB Conc 34 % (32-34); Mean Corpuscular Volume 79 fl (84-94); Platelet Count 199 K/mm3 (140-440); Red Blood Count 4.58 M/mm3 (3.65-5.03); Red Cell Distribution Width 14.7 % (13.2-15.2)
[2021-09-10 16:46] LABS: Blood Urea Nitrogen 22 mg/dL (9-20); Calcium 8.9 mg/dL (8.4-10.2); Hemolysis Index 4
[2021-09-10 16:47] LABS: BUN/Creatinine Ratio 31
[2021-09-11] MEDS: PANTOPRAZOLE 40 MG TAB PO SCH (07:33)
--- NOTE | 2021-09-11 10:04 | Progress Note ---
Subjective Date of service: 09/11/21 Principal diagnosis: Right MCA CVA with left hemiparesis Interval history: 50-year-old male who presented to the outside hospital on 08/17 with complaints of spasms and left-sided facial droop accompanied by slurred speech. Initially his symptoms were considered to be related to an MS exacerbation and he was provided with steroids and discharged home. However he returned same day to the ER for repeated issues with continued facial droop. Further work-up with MRI showed an acute right MCA territory lacunar infarct involving the putamen, periventricular white matter and a portion of the posterior limb of the internal capsule. Given his age, hypercoagulable work-up was performed. Patient has moderate dysarthria and dysphagia. He was placed on a soft mechanical diet with thin liquids. Medication should be crushed in pure patient was started on secondary stroke prevention. He tolerated therapy well and was recommended for acute inpatient rehabilitation. After the patient was medically stabilized they were transferred for further rehabilitation. All available medical records have been reviewed. Plan of care was discussed with patient. He also has a history of multiple sclerosis with neuropathy and continues taking Lyrica at baseline as well as baclofen for occasional spasms. The patient ambulates with a cane or walker depending on his ability for the day. He has recently received a motorized wheelchair however is awaiting moving into a home with a mask from the main in order to be able to utilize that. Patient does state that he has issues with constipation. He just retired recently after 20+ years in the [employer] and does have symptoms associated with PTSD, discussed use of praises in for his vivid nightmares however at this point he is wanting to defer starting this medication. Will monitor for any effect his recovery and address again if needed. Interval History: Patient is participating in therapy and making reasonable progress. Taking rest breaks as needed. +BM. Denies pain, palpitations, dyspnea, cough, N/V, or joint pain. Overall, patient does have good outlook and attitude and is working hard with therapy to initiate improvement. Patient continues to work with therapy and is making progress towards goals of being able to return home. Condom cath needs to be replaced. Will check UA to rule out any possible UTI as an aggravator of spasticity CVA: Continue secondary stroke prevention, therapy. Monitor for any signs or symptoms of stroke recrudescence, shoulder-hand syndrome, worsening spasticity, post stroke depression, sleep disturbance. He does have weakness from prior with his MS which will complicate healing somewhat. Spasticity: Continue baclofen which patient was on previously for spasticity due to MS. Unclear as to how much of the spasticity is due to the CVA versus MS, patient does state that he had some issues previously with MS but this is worse currently. Encouraged the patient to continue stretching while he is not in therapy. Patient is having hypotension at times which limits the available increases of baclofen. Spasticity is stable today on exam. Encouraged patient to follow-up with his neurologist as an outpatient who may decide to change baclofen to another agent. Insomnia: Decreased sleep overnight due to inability to get comfortable. Patient does state that when he attempts to lay on his side that his arm starts spasming and he is not comfortable sleeping on his back. Would like something to try to sleep tonight. Will trial trazodone Volume depletion: Will monitor occasionally. Variable depending on patient's oral intake. Improved on lab checks yesterday. Continue oral intake and monitor Hypokalemia: Replaced with potassium, resolved. Monitor for need to replace. Left foot drop: Patient is walking more with therapy. We will likely go ahead and move forward with an AFO. Hopefully this is something that he can continue at home and not rely solely on the motorized wheelchair until his endurance is a limiting factor based on the progression of his MS. Neuropathy: Stable so far on current dose of Lyrica. Continue to monitor and adjust if needed. Constipation: Improving with bowel meds. Continue to monitor and adjust as n eeded. Variable pattern of bowel movements. Encourage patient to continue taking oral medications. Asthma: Seems to be doing okay currently. We will continue medications and adjust as needed. MS: Patient uncertain of type however states that he is receiving injections from his physicians at the [facility]. Seems to be a fairly aggressive type with the quickness of his deconditioning. Will concentrate on energy conservation with therapy in order to improve his overall quality of life once he returns home. Will attempt to adjust therapy schedule so that he is getting therapy 7 days a week at slightly reduced amounts of time daily. Telehealth appointment on Thursday with neurology revealed that the patient's next injection is scheduled for September. ADL & mobility dysfunction: Continue therapy to improve patient's ability to perform self-care and ADLs as well as improve his mobility and transfers. Patient was able to walk in the hallway utilizing the RW with assistance, decreased ability currently due to weakness on the right side of the body which was unaffected from the stroke. All records, vitals, labs and medications were reviewed. No other issues per patient, nursing or therapy. Objective - Exam Narrative Exam: MUSCULOSKELETAL SPECIALTY EXAM CONSTITUTIONAL: Well developed, well nourished, appropriately groomed. RIGHT hand dominant. RESPIRATORY: Clear to auscultation bilaterally, no increased work of breathing CARDIOVASCULAR: Regular Rate/ Rhythm, no swelling, edema or tenderness in BUE or BLE. All extremities warm. GI: + bowel sounds, soft, NTTP, nondistended. INTEGUMENTARY: Normal, no lesion, rash, masses or bruising noted in extremities. MUSCULOSKELETAL: BUE and BLE normal without defect, crepitus, subluxation, effusion, arthritic changes or TTP. R 4+/5 L 1/5 for shoulder abduction, 3/5 at the biceps/triceps, 2/5 carton stenciler, 1/5 lower extremity ROM within normal limits on the right, decreased on the left Tone normal on the right, increased on the left with variable spasticity. MAS 3/4 LLE & 2/4 LUE NEURO: CN VII : Left facial droop CN XI : Impaired left shoulder shrug, improving CN XII : Tongue protrudes slightly to the left Sensation intact in all extremities without extinction. Sustained clonus left ankle. No tremor noted in 4 extremities. Naming and repetition intact. Follows 2 step commands. Aphasia not appreciated Dysarthria resolved Dysphagia resolved Neglect not appreciated POSTURE and GAIT: Sitting posture fair. Balance and gait fair with assistance to advance LLE and cues to correct posture. PSYCH: Alert, oriented x3, affect appears euthymic. Insight appears intact. - Constitutional Vitals: Vital Signs - 12hr 09/11/21 09/11/21 08:19 08:20 Temperature 99.0 F Pulse Rate 104 H Respiratory 22 Rate Blood Pressure 108/68 O2 Sat by Pulse 95 Oximetry - Allied health notes Allied health notes reviewed: nursing, PT, OT FIMS assessment as documented by PT/OT/ST: Locomotion- walk/wheelchair Ambulation Distance 0 - Labs CBC & Chem 7: 09/10/21 15:35 09/10/21 15:35 Labs: Laboratory Results - last 72 hr 09/10/21 09/10/21 15:35 15:35 WBC 10.8 RBC 4.58 Hgb 12.2 Hct 36.3 MCV 79 L MCH 27 L MCHC 34 RDW 14.7 Plt Count 199 Sodium 139 Potassium 3.7 Chloride 105.7 Carbon Dioxide 26 Anion Gap 11 BUN 22 H Creatinine 0.7 L Estimated GFR > 60 BUN/Creatinine Ratio 31 Glucose 73 L Calcium 8.9 Assessment and Plan MCA CVA with left nondominant hemiparesis: Continue Secondary Stroke Prevention (Antithrombotic, Statin (Goal LDL-C <70), BP control (Goal <140/90), GLU control (Goal A1c <7), and lifestyle modification). Monitor for recurrent stroke or post-stroke recrudescence. Continue neuromotor therapy as above. Family training when available. Monitor for post stroke depression, cognitive deficits, seizure, dysphagia, aphasia, shoulder hand syndrome, sensory deficits, spasticity, bowel/bladder deficits, sleep disturbance, vision deficits and DVT. Prognosis for recovery and Secondary Stroke Prevention discussed. Follow up with Neurology. No driving until cleared by Neurologist. Dysarthria: CONTROLLER MECHANIC has signed off, patient seems to be close to baseline. Dysphagia: CONTROLLER MECHANIC is signed off, patient's dysphagia has improved and he is able to tolerate regular foods without any signs of aspiration. Continue to monitor for aspiration and reconsult if needed. Spasticity: Continue home baclofen. Look to increase if needed. Continue stretching and teach patient on home stretching program in order to improve ability for range of motion. Patient is performing stretching routines in the room which he states is helping with tone. Due to intermittent hypotension, will be difficult to increase baclofen. We will continue stretching and medication to see if we can improve spasticity. Left foot drop: Continue working with the patient with physical therapy. Will order AFO prior to discharge. Neuropathy: Patient did not tolerate gabapentin previously which has been stopped. Is currently taking Lyrica and will adjust dose as needed. Hypokalemia: Replaced potassium and recheck labs, currently resolved. Monitor PTSD: Patient states that [facility] and feels like his PTSD is fairly well controlled. He does state that he continues to have nightmares at night which do disturb his sleep at times. We did discuss the use of prazosin however the patient does want to defer starting this currently. We will continue to monitor the patient for any signs of PTSD or nightmares interfering with his recovery and will address the issue again as needed. Constipation: Patient states that he can typically go a week or so without a bowel movement. Will schedule bowel meds with hold for loose stools. Insomnia: Trazodone being trialed at a low dose, monitor Asthma: Albuterol tablets not available, have scheduled and as needed nebulizers available. Symbicort is also not on formulary but have ordered our in-house substitute. We will look to reduce this if able. Respiratory consult in place. Multiple sclerosis: Patient recently diagnosed after chcf from the [employer]. [facility] Noted some neuropathy, weakness, and altered sensation from the MS prior to the stroke. Telehealth follow-up with outside neurology 09/04 for MS. Endurance is pretty poor and variable Volume depletion: Patient states that he is not eating or drinking as much as he normally does. Continue to monitor and give fluids as needed. Encouraged patient to improve oral intake of fluids. ADL dysfunction: OT will work on improving ability to perform ADLs (including assistive devices) to increase independence and decrease caregiver burden and improve functional transfers and mobility training. Difficulty walking: PT will work on gait training and proper use of assistive devices and advance as appropriate to use of stairs and outside ambulation on uneven surfaces. Unsteadiness on feet: PT will work on improving static and dynamic sitting and standing balance as well as proper use of assistive devices to decrease risk of falls. Abnormality of gait: PT will work to improve safety and efficiency of gait through neuromotor training and gait training along with instruction on proper use of assistive devices. Muscle weakness: PT & OT will work on strengthening exercises to improve functional strength including mixture of closed and open kinetic chain exercises. Debility: PT & OT will work on improving overall functional status to improve participation with ADLs, mobility and social involvement. Fatigue: PT & OT will work on improving endurance through aerobic exercises and therapeutic activity while monitoring patients tolerance for activity and vital signs as needed. DVT ppx: Lovenox Pain: Continue physical modalities in therapy and pain medications as needed to achieve functional pain control. Sleep: Monitor and address as needed. Bowel: Monitor and address as needed. Appetite: Monitor and address as needed. Discharge planning: Pending therapy progress and care plan meeting. Will continue discussion with therapy team, SW, patient and family. Looking to discharge next Thursday. Patient will most likely need a hospital bed at discharge in order to allow the patient to receive care with hygiene, improve his ability to transfer out of the bed and into a wheelchair, and adjust positioning in order to reduce risk for bedsores. Will need home health as well and [facility] to [facility] or not [facility] been [facility] as previously informed. Restrictions/ Precautions: Falls, aspiration WB status: FWB Functional Hx: ADLs: Needed some assistance Cognition: Independent Mobility: Cane/RW/motorized wheelchair Barriers to Discharge: Decreased mobility and ability to perform self care, balance deficits, weakness Estimated Length of Stay: 1418 days Discharge Destination: Home with family DME: Patient will be discharged with a hospital bed which he needs in order to be able to perform transfers in a safe manner. Due to the patient's weakness from MS as well as the increased weakness and spasticity from the CVA, he is unable to perform transfers from a normal bed and adjustable hospital bed will allow him to utilize rails for bed mobility which will help prevent bedsores as well as improve his ability to transfer out of the bed to the wheelchair. Hospital bed will also allow for improvement in the ability for the caregiver to provide care and helping patient to clean up and dress. Patient has all other DME available including a motorized wheelchair, walker, and cane. At this point with the patient's ongoing issues with fatigue and diagnosis of MS, we are going to concentrate on energy conservation which will also be aided by the use of a hospital bed for changing positions and reducing the amount of effort needed to perform bed to wheelchair transfers. We will also discharged with a drop arm bedside commode and sliding board for transfers
[2021-09-11] MEDS: ENOXAPARIN 40 MG/0.4 ML INJ SUB-Q SCH (10:28)
[2021-09-11] MEDS: MELOXICAM 7.5 MG TAB PO SCH (10:29)
[2021-09-11] MEDS: FERROUS SULFATE 325 MG TAB PO SCH (10:29)
[2021-09-11] MEDS: DOCUSATE SODIUM 100 MG CAP PO SCH ×2 (10:29→22:27)
[2021-09-11] MEDS: BACLOFEN 10 MG TAB PO SCH ×3 (10:29→22:27)
[2021-09-11] MEDS: CHOLECALCIFEROL (VIT D3) 1000 UNIT (25 mcg) TAB PO SCH (10:29)
[2021-09-11] MEDS: CLOPIDOGREL 75 MG TAB PO SCH (10:29)
[2021-09-11] MEDS: ASPIRIN EC 81 MG TAB PO SCH (10:29)
[2021-09-11] MEDS: traZODone 50 MG TAB PO SCH (22:26)
[2021-09-12] MEDS: ACETAMINOPHEN 325 MG TAB PO PRN (00:56)
[2021-09-12] MEDS: oxyCODONE /ACETAMINOPHEN 5-325MG TAB PO PRN (02:13)
[2021-09-12 02:48] LABS: Bacteria,Urine 2+ /HPF (Negative); Bilirubin,Urine NEG (Negative); Blood,Urine MOD (Negative); Color,Urine Yellow (Yellow); Mucus,Urine FEW /HPF
[2021-09-12 02:53] LABS: WBC,Urine > 182.0 /HPF (0.0-6.0)
[2021-09-12] MEDS: FLUTICASONE PROPIONATE NASAL SPRAY 16 GM NS PRN (03:19)
--- NOTE | 2021-09-12 04:49 | XRay Report ---
CHEST 1 VIEW 09/12/2021 3:41 AM INDICATION / CLINICAL INFORMATION: fever. COMPARISON: None available. FINDINGS: SUPPORT DEVICES: None. HEART / MEDIASTINUM: No significant abnormality. LUNGS / PLEURA: No significant pulmonary or pleural abnormality. No pneumothorax. ADDITIONAL FINDINGS: No significant additional findings. IMPRESSION: 1. No acute findings. Signer Name: Ha Byers MD Signed: 09/12/2021 4:45 AM Workstation Name: [email or web address]
--- NOTE | 2021-09-12 08:41 | Progress Note ---
Subjective Date of service: 09/12/21 Principal diagnosis: Right MCA CVA with left hemiparesis Interval history: 50-year-old male who presented to the outside hospital on 08/17 with complaints of spasms and left-sided facial droop accompanied by slurred speech. Initially his symptoms were considered to be related to an MS exacerbation and he was provided with steroids and discharged home. However he returned same day to the ER for repeated issues with continued facial droop. Further work-up with MRI showed an acute right MCA territory lacunar infarct involving the putamen, periventricular white matter and a portion of the posterior limb of the internal capsule. Given his age, hypercoagulable work-up was performed. Patient has moderate dysarthria and dysphagia. He was placed on a soft mechanical diet with thin liquids. Medication should be crushed in pure patient was started on secondary stroke prevention. He tolerated therapy well and was recommended for acute inpatient rehabilitation. After the patient was medically stabilized they were transferred for further rehabilitation. All available medical records have been reviewed. Plan of care was discussed with patient. He also has a history of multiple sclerosis with neuropathy and continues taking Lyrica at baseline as well as baclofen for occasional spasms. The patient ambulates with a cane or walker depending on his ability for the day. He has recently received a motorized wheelchair however is awaiting moving into a home with a mask from the main in order to be able to utilize that. Patient does state that he has issues with constipation. He just retired recently after 20+ years in the [employer] and does have symptoms associated with PTSD, discussed use of praises in for his vivid nightmares however at this point he is wanting to defer starting this medication. Will monitor for any effect his recovery and address again if needed. Interval History: Patient is participating in therapy and making reasonable progress. Taking rest breaks as needed. +BM. Denies pain, palpitations, dyspnea, cough, N/V, or joint pain. Overall, patient does have good outlook and attitude and is working hard with therapy to initiate improvement. Patient continues to work with therapy and is making progress towards goals of being able to return home. Did not check UA yesterday due to patient repeatedly stating that he had no symptoms of burning, increased frequency or hesitancy with urination. Spasticity has b een variable and UTI could be an involved with that however he has been variable since he has been on the floor. Unfortunately last night patient did have a fever of 101 and hospitalist was consulted who ordered fever work-up. UA is positive for UTI. Blood cultures are pending. Chest x-ray negative. I have ordered a urine culture and CBC/BMP this morning. Patient will need to start using urinal versus condom cath from here on out. CVA: Continue secondary stroke prevention, therapy. Monitor for any signs or symptoms of stroke recrudescence, shoulder-hand syndrome, worsening spasticity, post stroke depression, sleep disturbance. He does have weakness from prior with his MS which will complicate healing somewhat. Spasticity: Continue baclofen which patient was on previously for spasticity due to MS. Unclear as to how much of the spasticity is due to the CVA versus MS, patient does state that he had some issues previously with MS but this is worse currently. Encouraged the patient to continue stretching while he is not in therapy. Patient is having hypotension at times which limits the available increases of baclofen. Spasticity is stable today on exam. Encouraged patient to follow-up with his neurologist as an outpatient who may decide to change baclofen to another agent. Fever: Work-up performed by hospitalist. Appreciate the assistance. Fever currently resolved. UTI: UA reviewed. Urine culture ordered this morning stat. Levaquin to start afterwards. Insomnia: Decreased sleep overnight due to inability to get comfortable. Patient does state that when he attempts to lay on his side that his arm starts spasming and he is not comfortable sleeping on his back. Would like something to try to sleep tonight. Will trial trazodone Volume depletion: Will monitor occasionally. Variable depending on patient's oral intake. Improved on lab checks yesterday. Continue oral intake and monitor Hypokalemia: Replaced with potassium, resolved. Monitor for need to replace. Left foot drop: Patient is walking more with therapy. We will likely go ahead and move forward with an AFO. Hopefully this is something that he can continue at home and not rely solely on the motorized wheelchair until his endurance is a limiting factor based on the progression of his MS. Neuropathy: Stable so far on current dose of Lyrica. Continue to monitor and adjust if needed. Constipation: Improving with bowel meds. Continue to monitor and adjust as needed. Variable pattern of bowel movements. Encourage patient to continue taking oral medications. Asthma: Seems to be doing okay currently. We will continue medications and adjust as needed. MS: Patient uncertain of type however states that he is [facility] Seems to be a fairly aggressive type with the quickness of his deconditioning. Will concentrate on energy conservation with therapy in order to improve his overall quality of life once he returns home. Will attempt to adjust therapy schedule so that he is getting therapy 7 days a week at slightly reduced amounts of time daily. Telehealth appointment on Thursday with neurology revealed that the patient's next injection is scheduled for September. ADL & mobility dysfunction: Continue therapy to improve patient's ability to perform self-care and ADLs as well as improve his mobility and transfers. Patient was able to walk in the hallway utilizing the RW with assistance, decreased ability currently due to weakness on the right side of the body which was unaffected from the stroke. All records, vitals, labs and medications were reviewed. No other issues per patient, nursing or therapy. Objective - Exam Narrative Exam: MUSCULOSKELETAL SPECIALTY EXAM CONSTITUTIONAL: Well developed, well nourished, appropriately groomed. Afebrile currently. RIGHT hand dominant. RESPIRATORY: Clear to auscultation bilaterally, no increased work of breathing CARDIOVASCULAR: Regular Rate/ Rhythm, no swelling, edema or tenderness in BUE or BLE. All extremities warm. GI: + bowel sounds, soft, NTTP, nondistended. INTEGUMENTARY: Normal, no lesion, rash, masses or bruising noted in extremities. MUSCULOSKELETAL: BUE and BLE normal without defect, crepitus, subluxation, effusion, arthritic changes or TTP. R 4+/5 L 1/5 for shoulder abduction, 3/5 at the biceps/triceps, 2/5 budget specialist, 1/5 lower extremity ROM within normal limits on the right, decreased on the left Tone normal on the right, increased on the left with variable spasticity. MAS 3/4 LLE & 2/4 LUE NEURO: CN VII : Left facial droop CN XI : Impaired left shoulder shrug, improving CN XII : Tongue protrudes slightly to the left Sensation intact in all extremities without extinction. Sustained clonus left ankle. No tremor noted in 4 extremities. Naming and repetition intact. Follows 2 step commands. Aphasia not appreciated Dysarthria resolved Dysphagia resolved Neglect not appreciated POSTURE and GAIT: Sitting posture fair. Balance and gait fair with assistance to advance LLE and cues to correct posture. PSYCH: Alert, oriented x3, affect appears euthymic. Insight appears intact. - Constitutional Vitals: Vital Signs - 12hr 09/11/21 09/11/21 09/11/21 21:06 22:00 23:00 Temperature 101.4 F H 101.1 F H Pulse Rate 98 H 97 H Respiratory 20 18 Rate Blood Pressure 113/72 99/52 O2 Sat by Pulse 97 96 93 Oximetry 09/12/21 09/12/21 09/12/21 04:20 04:39 04:41 Temperature 98.6 F Pulse Rate 82 71 Respiratory 18 20 20 Rate Blood Pressure 67/34 71/40 80/50 O2 Sat by Pulse 99 96 Oximetry 09/12/21 06:22 Temperature Pulse Rate 61 Respiratory 20 Rate Blood Pressure 93/59 O2 Sat by Pulse 98 Oximetry - Allied health notes Allied health notes reviewed: nursing, PT, OT FIMS assessment as documented by PT/OT/ST: Locomotion- walk/wheelchair Ambulation Distance 0 - Labs CBC & Chem 7: 09/10/21 15:35 09/10/21 15:35 Labs: Laboratory Results - last 72 hr 09/10/21 09/10/21 09/12/21 15:35 15:35 01:50 WBC 10.8 RBC 4.58 Hgb 12.2 Hct 36.3 MCV 79 L MCH 27 L MCHC 34 RDW 14.7 Plt Count 199 Sodium 139 Potassium 3.7 Chloride 105.7 Carbon Dioxide 26 Anion Gap 11 BUN 22 H Creatinine 0.7 L Estimated GFR > 60 BUN/Creatinine Ratio 31 Glucose 73 L Calcium 8.9 Urine Color Yellow Urine Turbidity Turbid Urine pH 6.0 Ur Specific [place] 1.017 Urine Protein 100 mg/dl Urine Glucose (UA) Neg Urine Ketones Neg Urine Blood Mod Urine Nitrite Pos Urine Bilirubin Neg Urine Urobilinogen 4.0 Ur Leukocyte Esterase Lg Urine WBC (Auto) > 182.0 H Urine RBC (Auto) 88.0 U Epithel Cells (Auto) 1.0 Urine Bacteria (Auto) 2+ Urine WBC Clumps 3+ Urine Mucus Few Urine Yeast (Budding) 3+ Assessment and Plan MCA CVA with left nondominant hemiparesis: Continue Secondary Stroke Prevention (Antithrombotic, Statin (Goal LDL-C <70), BP control (Goal <140/90), GLU control (Goal A1c <7), and lifestyle modification). Monitor for recurrent stroke or post-stroke recrudescence. Continue neuromotor therapy as above. Family training when available. Monitor for post stroke depression, cognitive deficits, seizure, dysphagia, aphasia, shoulder hand syndrome, sensory deficits, spasticity, bowel/bladder deficits, sleep disturbance, vision deficits and DVT. Prognosis for recovery and Secondary Stroke Prevention discussed. Follow up with Neurology. No driving until cleared by Neurologist. Dysarthria: DISABILITY ADVOCATE has signed off, patient seems to be close to baseline. Dysphagia: DISABILITY ADVOCATE is signed off, patient's dysphagia has improved and he is able to tolerate regular foods without any signs of aspiration. Continue to monitor for aspiration and reconsult if needed. Spasticity: Continue home baclofen. Look to increase if needed. Continue stretching and teach patient on home stretching program in order to improve ability for range of motion. Patient is performing stretching routines in the room which he states is helping with tone. Due to intermittent hypotension, will be difficult to increase baclofen. We will continue stretching and medication to see if we can improve spasticity. Fever and UTI: Work-up performed by overnight hospitalist. Appreciate their assistance. UA positive for UTI. Urine culture ordered along with CBC and BMP. Levaquin started after urine culture obtained. Will need to start utilizing urinal. Left foot drop: Continue working with the patient with physical therapy. Will order AFO prior to discharge. Neuropathy: Patient did not tolerate gabapentin previously which has been stopped. Is currently taking Lyrica and will adjust dose as needed. Hypokalemia: Replaced potassium and recheck labs, currently resolved. Monitor PTSD: Patient states that he is [facility] and feels like his PTSD is fairly well controlled. He does state that he continues to have nightmares at night which do disturb his sleep at times. We did discuss the use of prazosin however the patient does want to defer starting this currently. We will continue to monitor the patient for any signs of PTSD or nightmares interfering with his recovery and will address the issue again as needed. Constipation: Patient states that he can typically go a week or so without a bowel movement. Will schedule bowel meds with hold for loose stools. Insomnia: Trazodone being trialed at a low dose, monitor Asthma: Albuterol tablets not available, have scheduled and as needed nebulizers available. Symbicort is also not on formulary but have ordered our in-house substitute. We will look to reduce this if able. Respiratory consult in place. Multiple sclerosis: Patient recently diagnosed after senior living from the [employer]. [facility] Noted some neuropathy, weakness, and altered sensation from the MS prior to the stroke. Telehealth follow-up with outside neurology 09/04 for MS. Endurance is pretty poor and variable Volume depletion: Patient states that he is not eating or drinking as much as he normally does. Continue to monitor and give fluids as needed. Encouraged patient to improve oral intake of fluids. ADL dysfunction: OT will work on improving ability to perform ADLs (including assistive devices) to increase independence and decrease caregiver burden and improve functional transfers and mobility training. Difficulty walking: PT will work on gait training and proper use of assistive devices and advance as appropriate to use of stairs and outside ambulation on uneven surfaces. Unsteadiness on feet: PT will work on improving static and dynamic sitting and standing balance as well as proper use of assistive devices to decrease risk of falls. Abnormality of gait: PT will work to improve safety and efficiency of gait through neuromotor training and gait training along with instruction on proper use of assistive devices. Muscle weakness: PT & OT will work on strengthening exercises to improve functional strength including mixture of closed and open kinetic chain exercises. Debility: PT & OT will work on improving overall functional status to improve participation with ADLs, mobility and social involvement. Fatigue: PT & OT will work on improving endurance through aerobic exercises and therapeutic activity while monitoring patients tolerance for activity and vital signs as needed. DVT ppx: Lovenox Pain: Continue physical modalities in therapy and pain medications as needed to achieve functional pain control. Sleep: Monitor and address as needed. Bowel: Monitor and address as needed. Appetite: Monitor and address as needed. Discharge planning: Pending therapy progress and care plan meeting. Will continue discussion with therapy team, SW, patient and family. Looking to discharge next Thursday. Patient will most likely need a hospital bed at discharge in order to allow the patient to receive care with hygiene, improve his ability to transfer out of the bed and into a wheelchair, and adjust positioning in order to reduce risk for bedsores. Will need home health as well and [facility] or not [facility] been [facility] as previously informed. Restrictions/ Precautions: Falls, aspiration WB status: FWB Functional Hx: ADLs: Needed some assistance Cognition: Independent Mobility: Cane/RW/motorized wheelchair Barriers to Discharge: Decreased mobility and ability to perform self care, balance deficits, weakness Estimated Length of Stay: 1418 days Discharge Destination: Home with family DME: Patient will be discharged with a hospital bed which he needs in order to be able to perform transfers in a safe manner. Due to the patient's weakness from MS as well as the increased weakness and spasticity from the CVA, he is unable to perform transfers from a normal bed and adjustable hospital bed will allow him to utilize rails for bed mobility which will help prevent bedsores as well as improve his ability to transfer out of the bed to the wheelchair. Hospital bed will also allow for improvement in the ability for the caregiver to provide care and helping patient to clean up and dress. Patient has all other DME av ailable including a motorized wheelchair, walker, and cane. At this point with the patient's ongoing issues with fatigue and diagnosis of MS, we are going to concentrate on energy conservation which will also be aided by the use of a hospital bed for changing positions and reducing the amount of effort needed to perform bed to wheelchair transfers. We will also discharged with a drop arm bedside commode and sliding board for transfers
[2021-09-12 09:55] LABS: Hematocrit 35.4 % (35.5-45.6); Hemoglobin 11.8 gm/dl (11.8-15.2); Mean Corpuscular HGB Conc 33 % (32-34); Mean Corpuscular Volume 79 fl (84-94); Platelet Count 157 K/mm3 (140-440); Red Blood Count 4.48 M/mm3 (3.65-5.03); Red Cell Distribution Width 14.6 % (13.2-15.2)
[2021-09-12 09:58] LABS: BUN/Creatinine Ratio 21; Blood Urea Nitrogen 21 mg/dL (9-20); Calcium 8.8 mg/dL (8.4-10.2); Hemolysis Index 7
[2021-09-12] MEDS: CLOPIDOGREL 75 MG TAB PO SCH (10:34)
[2021-09-12] MEDS: ASPIRIN EC 81 MG TAB PO SCH (10:34)
[2021-09-12] MEDS: CHOLECALCIFEROL (VIT D3) 1000 UNIT (25 mcg) TAB PO SCH (10:34)
[2021-09-12] MEDS: ENOXAPARIN 40 MG/0.4 ML INJ SUB-Q SCH (10:34)
[2021-09-12] MEDS: MELOXICAM 7.5 MG TAB PO SCH (10:34)
[2021-09-12] MEDS: BACLOFEN 10 MG TAB PO SCH ×3 (10:34→20:51)
[2021-09-12] MEDS: FERROUS SULFATE 325 MG TAB PO SCH (10:34)
[2021-09-12] MEDS: PANTOPRAZOLE 40 MG TAB PO SCH (10:35)
[2021-09-12] MEDS: DOCUSATE SODIUM 100 MG CAP PO SCH ×2 (10:39→21:00)
[2021-09-12] MEDS: traZODone 50 MG TAB PO SCH (21:00)
[2021-09-13] MEDS: ACETAMINOPHEN 325 MG TAB PO PRN (00:58)
[2021-09-13 07:56] LABS: Hematocrit 32.8 % (35.5-45.6); Hemoglobin 11.2 gm/dl (11.8-15.2); Mean Corpuscular HGB Conc 34 % (32-34); Mean Corpuscular Volume 78 fl (84-94); Platelet Count 165 K/mm3 (140-440); Red Blood Count 4.19 M/mm3 (3.65-5.03); Red Cell Distribution Width 14.5 % (13.2-15.2)
[2021-09-13 08:27] LABS: BUN/Creatinine Ratio 23; Blood Urea Nitrogen 21 mg/dL (9-20); Calcium 8.6 mg/dL (8.4-10.2); Hemolysis Index 6
[2021-09-13] MEDS: DOCUSATE SODIUM 100 MG CAP PO SCH ×2 (09:51→21:06)
[2021-09-13] MEDS: ASPIRIN EC 81 MG TAB PO SCH (09:52)
[2021-09-13] MEDS: BACLOFEN 10 MG TAB PO SCH ×3 (09:52→21:06)
[2021-09-13] MEDS: PANTOPRAZOLE 40 MG TAB PO SCH (09:52)
[2021-09-13] MEDS: FERROUS SULFATE 325 MG TAB PO SCH (09:52)
[2021-09-13] MEDS: MELOXICAM 7.5 MG TAB PO SCH (09:52)
[2021-09-13] MEDS: ENOXAPARIN 40 MG/0.4 ML INJ SUB-Q SCH (09:53)
[2021-09-13] MEDS: CLOPIDOGREL 75 MG TAB PO SCH (09:53)
[2021-09-13] MEDS: CHOLECALCIFEROL (VIT D3) 1000 UNIT (25 mcg) TAB PO SCH (09:55)
--- NOTE | 2021-09-13 12:33 | Progress Note ---
Subjective Date of service: 09/13/21 Principal diagnosis: Right MCA CVA with left hemiparesis Interval history: 50-year-old male who presented to the outside hospital on 08/17 with complaints of spasms and left-sided facial droop accompanied by slurred speech. Initially his symptoms were considered to be related to an MS exacerbation and he was provided with steroids and discharged home. However he returned same day to the ER for repeated issues with continued facial droop. Further work-up with MRI showed an acute right MCA territory lacunar infarct involving the putamen, periventricular white matter and a portion of the posterior limb of the internal capsule. Given his age, hypercoagulable work-up was performed. Patient has moderate dysarthria and dysphagia. He was placed on a soft mechanical diet with thin liquids. Medication should be crushed in pure patient was started on secondary stroke prevention. He tolerated therapy well and was recommended for acute inpatient rehabilitation. After the patient was medically stabilized they were transferred for further rehabilitation. All available medical records have been reviewed. Plan of care was discussed with patient. He also has a history of multiple sclerosis with neuropathy and continues taking Lyrica at baseline as well as baclofen for occasional spasms. The patient ambulates with a cane or walker depending on his ability for the day. He has recently received a motorized wheelchair however is awaiting moving into a home with a mask from the main in order to be able to utilize that. Patient does state that he has issues with constipation. He just retired recently after 20+ years in the [employer] and does have symptoms associated with PTSD, discussed use of praises in for his vivid nightmares however at this point he is wanting to defer starting this medication. Will monitor for any effect his recovery and address again if needed. Interval History: Patient is participating in therapy and making reasonable progress. Taking rest breaks as needed. +BM. Denies pain, palpitations, dyspnea, cough, N/V, or joint pain. Overall, patient does have good outlook and attitude and is working hard with therapy to initiate improvement. Patient continues to work with therapy and is making progress towards goals of being able to return home. Recurrent fever and more elevated WBCs despite antibiotics, consult ID. Have called and spoken with Dr. Evangelista about the case. Patient does not have any outward symptoms of COVID-19 and was previously negative but may need to be rechecked, will defer to Dr. Evangelista. CVA: Continue secondary stroke prevention, therapy. Monitor for any signs or symptoms of stroke recrudescence, shoulder-hand syndrome, worsening spasticity, post stroke depression, sleep disturbance. He does have weakness from prior with his MS which will complicate healing somewhat. Spasticity: Continue baclofen which patient was on previously for spasticity due to MS. Unclear as to how much of the spasticity is due to the CVA versus MS, patient does state that he had some issues previously with MS but this is worse currently. Encouraged the patient to continue stretching while he is not in therapy. Patient is having hypotension at times which limits the available increases of baclofen. Spasticity is stable today on exam. Encouraged patient to follow-up with his neurologist as an outpatient who may decide to change baclofen to another agent. Fever: Work-up performed by hospitalist. Appreciate the assistance. Fever recurred overnight UTI: UA reviewed. Urine culture pending. Levaquin started yesterday after urine culture was collected. Unfortunately patient had a fever again overnight and his WBCs were even more elevated. Have contacted Dr. Evangelista with ID to c y[place]ault on possibly a another choice of antibiotic or broader spectrum. Insomnia: Decreased sleep overnight due to inability to get comfortable. Patient does state that when he attempts to lay on his side that his arm starts spasming and he is not comfortable sleeping on his back. Will trial trazodone Volume depletion: Will monitor occasionally. Variable depending on patient's oral intake. Improved on lab checks yesterday. Continue oral intake and monitor Hypokalemia: Replaced with potassium, resolved. Monitor for need to replace. Left foot drop: Patient is walking more with therapy. We will likely go ahead and move forward with an AFO. Hopefully this is something that he can continue at home and not rely solely on the motorized wheelchair until his endurance is a limiting factor based on the progression of his MS. Neuropathy: Stable so far on current dose of Lyrica. Continue to monitor and adjust if needed. Constipation: Improving with bowel meds. Continue to monitor and adjust as needed. Variable pattern of bowel movements. Encourage patient to continue taking oral medications. Asthma: Seems to be doing okay currently. We will continue medications and adjust as needed. MS: Patient uncertain of type however states that he is receiving injections from his physicians at the [facility]. Seems to be a fairly aggressive type with the quickness of his deconditioning. Will concentrate on energy conservation with therapy in order to improve his overall quality of life once he returns home. Will attempt to adjust therapy schedule so that he is getting therapy 7 days a week at slightly reduced amounts of time daily. Telehealth appointment on Thursday with neurology revealed that the patient's next injection is scheduled for September. ADL & mobility dysfunction: Continue therapy to improve patient's ability to perform self-care and ADLs as well as improve his mobility and transfers. Patient was able to walk in the hallway utilizing the RW with assistance, decr eased ability currently due to weakness on the right side of the body which was unaffected from the stroke. All records, vitals, labs and medications were reviewed. No other issues per patient, nursing or therapy. Objective - Exam Narrative Exam: MUSCULOSKELETAL SPECIALTY EXAM CONSTITUTIONAL: Well developed, well nourished, appropriately groomed. Afebrile currently. RIGHT hand dominant. RESPIRATORY: Clear to auscultation bilaterally, no increased work of breathing CARDIOVASCULAR: Regular Rate/ Rhythm, no swelling, edema or tenderness in BUE or BLE. All extremities warm. GI: + bowel sounds, soft, NTTP, nondistended. INTEGUMENTARY: Normal, no lesion, rash, masses or bruising noted in extremities. MUSCULOSKELETAL: BUE and BLE normal without defect, crepitus, subluxation, effusion, arthritic changes or TTP. R 4+/5 L 1/5 for shoulder abduction, 3/5 at the biceps/triceps, 2/5 hot box operator, 1/5 lower extremity ROM within normal limits on the right, decreased on the left Tone normal on the right, increased on the left with variable spasticity. MAS 3/4 LLE & 2/4 LUE NEURO: CN VII : Left facial droop CN XI : Impaired left shoulder shrug, improving CN XII : Tongue protrudes slightly to the left Sensation intact in all extremities without extinction. Sustained clonus left ankle. No tremor noted in 4 extremities. Naming and repetition intact. Follows 2 step commands. Aphasia not appreciated Dysarthria resolved Dysphagia resolved Neglect not appreciated POSTURE and GAIT: Sitting posture fair. Balance and gait fair with assistance to advance LLE and cues to correct posture. PSYCH: Alert, oriented x3, affect appears euthymic. Insight appears intact. - Constitutional Vitals: Vital Signs - 12hr 09/13/21 09:32 Temperature 98.1 F Pulse Rate 67 Respiratory 18 Rate Blood Pressure 110/70 [Left] O2 Sat by Pulse 99 Oximetry - Allied health notes Allied health notes reviewed: nursing, PT, OT FIMS assessment as documented by PT/OT/ST: Locomotion- walk/wheelchair Ambulation Distance 0 - Labs CBC & Chem 7: 09/13/21 07:28 09/13/21 07:28 Labs: Laboratory Results - last 72 hr 09/10/21 09/10/21 09/12/21 15:35 15:35 01:50 WBC 10.8 RBC 4.58 Hgb 12.2 Hct 36.3 MCV 79 L MCH 27 L MCHC 34 RDW 14.7 Plt Count 199 Sodium 139 Potassium 3.7 Chloride 105.7 Carbon Dioxide 26 Anion Gap 11 BUN 22 H Creatinine 0.7 L Estimated GFR > 60 BUN/Creatinine Ratio 31 Glucose 73 L POC Glucose Calcium 8.9 Urine Color Yellow Urine Turbidity Turbid Urine pH 6.0 Ur Specific Peever 1.017 Urine Protein 100 mg/dl Urine Glucose (UA) Neg Urine Ketones Neg Urine Blood Mod Urine Nitrite Pos Urine Bilirubin Neg Urine Urobilinogen 4.0 Ur Leukocyte Esterase Lg Urine WBC (Auto) > 182.0 H Urine RBC (Auto) 88.0 U Epithel Cells (Auto) 1.0 Urine Bacteria (Auto) 2+ Urine WBC Clumps 3+ Urine Mucus Few Urine Yeast (Budding) 3+ 09/12/21 09/12/21 09/13/21 09:24 09:24 07:28 WBC 13.6 H 15.1 H RBC 4.48 4.19 Hgb 11.8 11.2 L Hct 35.4 L 32.8 L MCV 79 L 78 L MCH 26 L 27 L MCHC 33 34 RDW 14.6 14.5 Plt Count 157 165 Sodium 138 Potassium 4.0 Chloride 102.9 Carbon Dioxide 27 Anion Gap 12 BUN 21 H Creatinine 1.0 Estimated GFR > 60 BUN/Creatinine Ratio 21 Glucose 85 POC Glucose Calcium 8.8 Urine Color Urine Turbidity Urine pH Ur Specific Peever Urine Protein Urine Glucose (UA) Urine Ketones Urine Blood Urine Nitrite Urine Bilirubin Urine Urobilinogen Ur Leukocyte Esterase Urine WBC (Auto) Urine RBC (Auto) U Epithel Cells (Auto) Urine Bacteria (Auto) Urine WBC Clumps Urine Mucus Urine Yeast (Budding) 09/13/21 09/13/21 07:28 09:49 WBC RBC Hgb Hct MCV MCH MCHC RDW Plt Count Sodium 141 Potassium 4.0 Chloride 105.6 Carbon Dioxide 24 Anion Gap 15 BUN 21 H Creatinine 0.9 Estimated GFR > 60 BUN/Creatinine Ratio 23 Glucose 84 POC Glucose 93 Calcium 8.6 Urine Color Urine Turbidity Urine pH Ur Specific Peever Urine Protein Urine Glucose (UA) Urine Ketones Urine Blood Urine Nitrite Urine Bilirubin Urine Urobilinogen Ur Leukocyte Esterase Urine WBC (Auto) Urine RBC (Auto) U Epithel Cells (Auto) Urine Bacteria (Auto) Urine WBC Clumps Urine Mucus Urine Yeast (Budding) Assessment and Plan MCA CVA with left nondominant hemiparesis: Continue Secondary Stroke Prevention (Antithrombotic, Statin (Goal LDL-C <70), BP control (Goal <140/90), GLU control (Goal A1c <7), and lifestyle modification). Monitor for recurrent stroke or post-stroke recrudescence. Continue neuromotor therapy as above. Family training when available. Monitor for post stroke depression, cognitive deficits, seizure, dysphagia, aphasia, shoulder hand syndrome, sensory deficits, spasticity, bowel/bladder deficits, sleep disturbance, vision deficits and DVT. Prognosis for recovery and Secondary Stroke Prevention discussed. Follow up with Neurology. No driving until cleared by Neurologist. Dysarthria: CHIEF BANK EXAMINER has signed off, patient seems to be close to baseline. Dysphagia: CHIEF BANK EXAMINER is signed off, patient's dysphagia has improved and he is able to tolerate regular foods without any signs of aspiration. Continue to monitor for aspiration and reconsult if needed. Spasticity: Continue home baclofen. Look to increase if needed. Continue stret alexei and teach patient on home stretching program in order to improve ability for range of motion. Patient is performing stretching routines in the room which he states is helping with tone. Due to intermittent hypotension, will be difficult to increase baclofen. We will continue stretching and medication to see if we can improve spasticity. Fever and UTI: Work-up performed by overnight hospitalist. Appreciate their assistance. UA positive for UTI. Urine culture ordered along with CBC and BMP. Levaquin started after urine culture obtained. Will need to start utilizing urinal. Consulted ID due to recurrent fever and worsening WBCs while on IV antibiotics. Left foot drop: Continue working with the patient with physical therapy. Will order AFO prior to discharge. Neuropathy: Patient did not tolerate gabapentin previously which has been stopped. Is currently taking Lyrica and will adjust dose as needed. Hypokalemia: Replaced potassium and recheck labs, currently resolved. Monitor PTSD: Patient states that he is stopped seeing psychiatrist at the [facility] and feels like his PTSD is fairly well controlled. He does state that he continues to have nightmares at night which do disturb his sleep at times. We did discuss the use of prazosin however the patient does want to defer starting this currently. We will continue to monitor the patient for any signs of PTSD or nightmares interfering with his recovery and will address the issue again as needed. Constipation: Patient states that he can typically go a week or so without a bowel movement. Will schedule bowel meds with hold for loose stools. Insomnia: Trazodone being trialed at a low dose, monitor Asthma: Albuterol tablets not available, have scheduled and as needed nebulizers available. Symbicort is also not on formulary but have ordered our in-house substitute. We will look to reduce this if able. Respiratory consult in place. Multiple sclerosis: Patient recently diagnosed after skilled nursing from the [employer]. Receives injections at the [facility]. Noted some neuropathy, weakness, and altered sensation from the MS prior to the stroke. Telehealth follow-up with outside neurology 09/04 for MS. Endurance is pretty poor and variable Volume depletion: Patient states that he is not eating or drinking as much as he normally does. Continue to monitor and give fluids as needed. Encouraged patient to improve oral intake of fluids. ADL dysfunction: OT will work on improving ability to perform ADLs (including assistive devices) to increase independence and decrease caregiver burden and improve functional transfers and mobility training. Difficulty walking: PT will work on gait training and proper use of assistive devices and advance as appropriate to use of stairs and outside ambulation on uneven surfaces. Unsteadiness on feet: PT will work on improving static and dynamic sitting and standing balance as well as proper use of assistive devices to decrease risk of falls. Abnormality of gait: PT will work to improve safety and efficiency of gait through neuromotor training and gait training along with instruction on proper use of assistive devices. Muscle weakness: PT & OT will work on strengthening exercises to improve functional strength including mixture of closed and open kinetic chain e xercises. Debility: PT & OT will work on improving overall functional status to improve participation with ADLs, mobility and social involvement. Fatigue: PT & OT will work on improving endurance through aerobic exercises and therapeutic activity while monitoring patients tolerance for activity and vital signs as needed. DVT ppx: Lovenox Pain: Continue physical modalities in therapy and pain medications as needed to achieve functional pain control. Sleep: Monitor and address as needed. Bowel: Monitor and address as needed. Appetite: Monitor and address as needed. Discharge planning: Pending therapy progress and care plan meeting. Will continue discussion with therapy team, SW, patient and family. Looking to discharge next Thursday. Patient will most likely need a hospital bed at discharge in order to allow the patient to receive care with hygiene, improve his ability to transfer out of the bed and into a wheelchair, and adjust positioning in order to reduce risk for bedsores. Will need home health as well and [facility] or not [facility] as previously informed. Restrictions/ Precautions: Falls, aspiration WB status: FWB Functional Hx: ADLs: Needed some assistance Cognition: Independent Mobility: Cane/RW/motorized wheelchair Barriers to Discharge: Decreased mobility and ability to perform self care, balance deficits, weakness Estimated Length of Stay: 1418 days Discharge Destination: Home with family DME: Patient will be discharged with a hospital bed which he needs in order to be able to perform transfers in a safe manner. Due to the patient's weakness from MS as well as the increased weakness and spasticity from the CVA, he is unable to perform transfers from a normal bed and adjustable hospital bed will allow him to utilize rails for bed mobility which will help prevent bedsores as well as improve his ability to transfer out of the bed to the wheelchair. Hospital bed will also allow for improvement in the ability for the caregiver to provide care and helping patient to clean up and dress. Patient has all other DME available including a motorized wheelchair, walker, and cane. At this point with the patient's ongoing issues with fatigue and diagnosis of MS, we are going to concentrate on energy conservation which will also be aided by the use of a hospital bed for changing positions and reducing the amount of effort needed to perform bed to wheelchair transfers. We will also discharged with a drop arm bedside commode and sliding board for transfers
--- NOTE | 2021-09-13 15:01 | Consultation ---
History of Present Illness - Reason for Consult Consult date: 09/13/21 - History of Present Illness 50-year-old man presented to an outside hospital on 918 with left-sided facial droop and slurred speech. He was found to have an acute right MCA territory lacunar infarct. Of note he has a history of multiple sclerosis with neuropathy and takes Lyrica at baseline. He was transferred to this hospital for acute rehab. He was found to have fever, as such we are consulted. Recurrently febrile over the past couple days to 101.4, white count elevated at 15. He is currently on Levaquin. Urinalysis with significant pyuria, he has been normal renal function. Urine cultures and blood cultures are both no growth so far. Imaging personally reviewed: Chest x-ray: No acute findings. Review of Systems: Bold if positive, otherwise negative General: fevers, chills, rigors HEENT: visual disturbance, diplopia, eye pain Respiratory: cough, sputum, hemoptysis, shortness of breath Cardiovascular: chest pain, syncope Gastrointestinal: nausea, vomiting, diarrhea, abdominal pain Genitourinary: dysuria, hematuria, flank pain Musculoskeletal: neck pain, back pain, joint pain, edema Neurologic: headaches, seizures Hematologic: easy bruising or bleeding Endocrine: night sweats, acute weight loss Skin: rash, jaundice, redness Psychiatric: suicidal, homicidal ideation Past History Past Medical History: other (Multiple sclerosis, PTSD, asthma) Past Surgical History: No surgical history Social history: , lives with family (In a two-story house, uses a cane and a walker to ambulate, however wheelchair recently received, moving into two- story home with master on the main in the beginning of August.), full code, other (Retired from the [employer] after 20+ years). denies: smoking, alcohol abuse, prescription drug abuse Family history: cancer Medications and Allergies Allergies Allergy/AdvReac Type Severity Reaction Status Date / Time Penicillins Allergy Itching Verified 08/24/21 00:41 Home Medications Medication Instructions Recorded Confirmed Last Taken Type AtorvaSTATin [Lipitor] 40 mg PO QHS 08/24/21 08/24/21 Unknown History Baclofen [Lioresal] 10 mg PO TID 08/24/21 08/24/21 Unknown History Docusate Sodium [Colace CAP] 100 mg PO DAILY 08/24/21 08/24/21 Unknown History Ferrous Sulfate [Iron 325 MG] 325 mg PO DAILY 08/24/21 08/24/21 Unknown History Meloxicam [Mobic] 15 mg PO DAILY 08/24/21 08/24/21 Unknown History Pantoprazole [Protonix TAB] 40 mg PO DAILY 08/24/21 08/24/21 Unknown History Potassium Chloride [Klor-Con] 20 meq PO QDAY 08/24/21 08/24/21 Unknown History Symbicort 160-4.5 Mcg Inhaler 160 mcg INHALATION BID 08/24/21 08/24/21 Unknown History Active Meds: Active Medications Acetaminophen (Acetaminophen 325 Mg Tab) 650 mg PO Q6H PRN PRN Reason: Pain MILD(1-3)/Fever >100.5/PLATT Last Admin: 09/13/21 00:58 Dose: 650 mg Documented by: Albuterol (Albuterol 2.5 Mg/3 Ml Nebu) 2.5 mg IH Q4HRT PRN PRN Reason: Shortness Of Breath Aspirin (Aspirin Ec 81 Mg Tab) 81 mg PO QDAY [facility] Last Admin: 09/13/21 09:52 Dose: 81 mg Documented by: Atorvastatin Calcium (Atorvastatin 40 Mg Tab) 40 mg PO QHS [facility] Last Admin: 09/12/21 21:00 Dose: 40 mg Documented by: Baclofen (Baclofen 10 Mg Tab) 10 mg PO TID [facility] Last Admin: 09/13/21 09:52 Dose: 10 mg Documented by: Bisacodyl (Bisacodyl 10 Mg Rect Supp) 10 mg FL QDAY PRN PRN Reason: Constipation Last Admin: 09/08/21 22:34 Dose: 10 mg Documented by: Cholecalciferol (Cholecalciferol (Vit D3) 1000 Unit (25 Mcg) Tab) 1,000 unit PO DAILY [facility] Last Admin: 09/13/21 09:55 Dose: 1,000 unit Documented by: Clopidogrel Bisulfate (Clopidogrel 75 Mg Tab) 75 mg PO QDAY [facility] Last Admin: 09/13/21 09:53 Dose: 75 mg Documented by: Docusate Sodium (Docusate Sodium 100 Mg Cap) 100 mg PO BID [facility] Last Admin: 09/13/21 09:51 Dose: Not Given Documented by: Enoxaparin Sodium (Enoxaparin 40 Mg/0.4 Ml Inj) 40 mg SUB-Q QDAY@1000 [facility]; Protocol Last Admin: 09/13/21 09:53 Dose: 40 mg Documented by: Ferrous Sulfate (Ferrous Sulfate 325 Mg Tab) 325 mg PO QDAY [facility] Last Admin: 09/13/21 09:52 Dose: 325 mg Documented by: Fluticasone Propionate (Fluticasone Propionate Nasal [place] 16 Gm) 100 mcg NS QDAY PRN PRN Reason: Nasal Congestion Last Admin: 09/12/21 03:19 Dose: 100 mcg Documented by: Hydralazine HCl (Hydralazine 20 Mg/1 Ml Inj) 10 mg IV Q4HR PRN PRN Reason: Hypertension Levofloxacin/Dextrose (Levaquin 250mg/50ml) 250 mg in 50 mls @ 50 mls/hr IV Q24H [facility]; Protocol Stop: 09/15/21 09:59 Last Admin: 09/13/21 11:49 Dose: 50 mls/hr Documented by: Meloxicam (Meloxicam 7.5 Mg Tab) 15 mg PO QDAY [facility] Last Admin: 09/13/21 09:52 Dose: 15 mg Documented by: Ondansetron HCl (Ondansetron 4 Mg Odt Tab) 4 mg PO Q8H PRN PRN Reason: Nausea And Vomiting Oxycodone/Acetaminophen (Oxycodone /Acetaminophen 5-325mg Tab) 1 tab PO Q6H PRN PRN Reason: Pain, Moderate (4-6) Last Admin: 09/12/21 02:13 Dose: 1 tab Documented by: Pantoprazole Sodium (Pantoprazole 40 Mg Tab) 40 mg PO QDAC [facility] Last Admin: 09/13/21 09:52 Dose: 40 mg Documented by: Polyethylene Glycol (Polyethylene Glycol 3350 17 Gm Powder) 17 gm PO QDAY PRN PRN Reason: Constipation Last Admin: 09/08/21 13:59 Dose: 17 gm Documented by: Trazodone HCl (Trazodone 50 Mg Tab) 50 mg PO QHS [facility] Last Admin: 09/12/21 21:00 Dose: 50 mg Documented by: Physical Examination - Physical Exam Narrative exam: Physical Exam: Constitutional: Alert, cooperative. No acute distress Head, Ears, Nose: Normocephalic, atraumatic. External ears, nose normal Eyes: Conjunctivae/corneas clear. No icterus. No ptosis. Neck: Supple, no meningeal signs Oral: dentition fair, no thrush Cardiovascular: S1, S2 normal. Respiratory: Good air entry, clear to auscultation bilaterally GI: Soft, non-tender; bowel sounds normal. No peritoneal signs. Musculoskeletal: No pedal edema, no cyanosis. Skin: No rash or abscess Hem/Lymphatic: No palpable cervical or supraclavicular nodes. No lymphangitis Psych: Mood ok. Affect normal Neurological: Awake, alert, oriented. No gross abnormality - Constitutional Vitals: Vital Signs Temp Pulse Resp BP Pulse Ox 98.1 F 67 18 110/70 99 09/13/21 09:32 09/13/21 09:32 09/13/21 09:32 09/13/21 09:32 09/13/21 09:32 Temperature -Last 24 Hours Temperature 98.1 F Temperature 101.2 F Temperature 100.4 F Temperature 99.0 F Results - Labs CBC & Chem 7: 09/13/21 07:28 09/13/21 07:28 Labs: Abnormal lab results 09/13/21 09/13/21 Range/Units 07:28 07:28 WBC 15.1 H (4.5-11.0) K/mm3 Hgb 11.2 L (11.8-15.2) gm/dl Hct 32.8 L (35.5-45.6) % MCV 78 L (84-94) fl MCH 27 L (28-32) pg BUN 21 H (9-20) mg/dL Assessment and Plan Cultures: Blood culture no growth so far Urine culture no growth so far A/P: 50-year-old man past medical history multiple sclerosis, recent acute CVA presented for rehab, now with fevers. #Acute sepsis: Present with fevers and leukocytosis. Likely secondary to UTI. #Acute UTI: With significant pyuria and urinalysis, urine cultures negative so far. #Multiple sclerosis: denies any history of UTIs and does not complain of urinary retention. #Acute CVA: now in rehab Recs: -Follow up urine and blood cultures -Still having fevers, only s/p one dose of Levaquin however. -Continue Levaquin for now, however I have increased the dose to 750mg q24h. -If fevers remain persistent over the weekend will escalate to cefepime. Thank you for the consult, we will continue to follow. Lan Evangelista MD [facility] ([facility] O: [phone] F: [phone]
[2021-09-13] MEDS: traZODone 50 MG TAB PO SCH (21:05)
[2021-09-14 10:19] LABS: Hematocrit 32.6 % (35.5-45.6); Hemoglobin 11.1 gm/dl (11.8-15.2); Mean Corpuscular HGB Conc 34 % (32-34); Mean Corpuscular Volume 78 fl (84-94); Platelet Count 200 K/mm3 (140-440); Red Blood Count 4.16 M/mm3 (3.65-5.03); Red Cell Distribution Width 14.7 % (13.2-15.2)
[2021-09-14 10:32] LABS: Blood Urea Nitrogen 18 mg/dL (9-20); Calcium 8.7 mg/dL (8.4-10.2); Hemolysis Index 2
[2021-09-14 10:35] LABS: BUN/Creatinine Ratio 26
[2021-09-14] MEDS: ASPIRIN EC 81 MG TAB PO SCH (10:46)
[2021-09-14] MEDS: CHOLECALCIFEROL (VIT D3) 1000 UNIT (25 mcg) TAB PO SCH (10:47)
[2021-09-14] MEDS: CLOPIDOGREL 75 MG TAB PO SCH (10:47)
[2021-09-14] MEDS: FERROUS SULFATE 325 MG TAB PO SCH (10:47)
[2021-09-14] MEDS: BACLOFEN 10 MG TAB PO SCH ×3 (10:47→21:54)
[2021-09-14] MEDS: ENOXAPARIN 40 MG/0.4 ML INJ SUB-Q SCH (10:47)
[2021-09-14] MEDS: PANTOPRAZOLE 40 MG TAB PO SCH (10:47)
[2021-09-14] MEDS: FLUTICASONE PROPIONATE NASAL SPRAY 16 GM NS PRN (10:48)
[2021-09-14] MEDS: MELOXICAM 7.5 MG TAB PO SCH (10:48)
[2021-09-14] MEDS: DOCUSATE SODIUM 100 MG CAP PO SCH ×2 (10:48→21:54)
[2021-09-14] MEDS: POTASSIUM CHLORIDE ER 20 MEQ TAB PO SCH (14:36)
[2021-09-14] MEDS: traZODone 50 MG TAB PO SCH (21:54)
[2021-09-15] MEDS: PANTOPRAZOLE 40 MG TAB PO SCH (08:00)
[2021-09-15 08:54] LABS: Hematocrit 32.7 % (35.5-45.6); Hemoglobin 11.2 gm/dl (11.8-15.2); Mean Corpuscular HGB Conc 34 % (32-34); Mean Corpuscular Volume 78 fl (84-94); Platelet Count 204 K/mm3 (140-440); Red Blood Count 4.19 M/mm3 (3.65-5.03); Red Cell Distribution Width 14.4 % (13.2-15.2)
[2021-09-15] MEDS: DOCUSATE SODIUM 100 MG CAP PO SCH ×2 (10:14→23:50)
[2021-09-15] MEDS: ENOXAPARIN 40 MG/0.4 ML INJ SUB-Q SCH (10:46)
[2021-09-15] MEDS: MELOXICAM 7.5 MG TAB PO SCH (10:46)
[2021-09-15] MEDS: ASPIRIN EC 81 MG TAB PO SCH (10:46)
[2021-09-15] MEDS: FERROUS SULFATE 325 MG TAB PO SCH (10:46)
[2021-09-15] MEDS: CHOLECALCIFEROL (VIT D3) 1000 UNIT (25 mcg) TAB PO SCH (10:47)
[2021-09-15] MEDS: CLOPIDOGREL 75 MG TAB PO SCH (10:47)
[2021-09-15] MEDS: POTASSIUM CHLORIDE ER 20 MEQ TAB PO SCH (10:47)
[2021-09-15] MEDS: BACLOFEN 10 MG TAB PO SCH ×3 (10:47→23:49)
[2021-09-15] MEDS: traZODone 50 MG TAB PO SCH (23:50)
[2021-09-16 08:19] LABS: Hematocrit 32.9 % (35.5-45.6); Hemoglobin 11.3 gm/dl (11.8-15.2); Mean Corpuscular HGB Conc 34 % (32-34); Mean Corpuscular Volume 78 fl (84-94); Platelet Count 205 K/mm3 (140-440); Red Blood Count 4.22 M/mm3 (3.65-5.03); Red Cell Distribution Width 14.8 % (13.2-15.2)
--- NOTE | 2021-09-16 09:45 | Progress Note ---
Subjective Date of service: 09/16/21 Principal diagnosis: Right MCA CVA with left hemiparesis Interval history: 50-year-old male who presented to the outside hospital on 08/17 with complaints of spasms and left-sided facial droop accompanied by slurred speech. Initially his symptoms were considered to be related to an MS exacerbation and he was provided with steroids and discharged home. However he returned same day to the ER for repeated issues with continued facial droop. Further work-up with MRI showed an acute right MCA territory lacunar infarct involving the putamen, periventricular white matter and a portion of the posterior limb of the internal capsule. Given his age, hypercoagulable work-up was performed. Patient has moderate dysarthria and dysphagia. He was placed on a soft mechanical diet with thin liquids. Medication should be crushed in pure patient was started on secondary stroke prevention. He tolerated therapy well and was recommended for acute inpatient rehabilitation. After the patient was medically stabilized they were transferred for further rehabilitation. All available medical records have been reviewed. Plan of care was discussed with patient. He also has a history of multiple sclerosis with neuropathy and continues taking Lyrica at baseline as well as baclofen for occasional spasms. The patient ambulates with a cane or walker depending on his ability for the day. He has recently received a motorized wheelchair however is awaiting moving into a home with a mask from the main in order to be able to utilize that. Patient does state that he has issues with constipation. He just retired recently after 20+ years in the [employer] and does have symptoms associated with PTSD, discussed use of praises in for his vivid nightmares however at this point he is wanting to defer starting this medication. Will monitor for any effect his recovery and address again if needed. Interval History: Patient is participating in therapy and making reasonable progress. Taking rest breaks as needed. +BM. Denies pain, palpitations, dyspnea, cough, N/V, or joint pain. Patient having a good day today with therapy and his ambulation has improved. On target to discharge home tomorrow CVA: Continue secondary stroke prevention, therapy. Monitor for any signs or symptoms of stroke recrudescence, shoulder-hand syndrome, worsening spasticity, post stroke depression, sleep disturbance. He does have weakness from prior with his MS which will complicate healing somewhat. Spasticity: Continue baclofen which patient was on previously for spasticity due to MS. Unclear as to how much of the spasticity is due to the CVA versus MS, patient does state that he had some issues previously with MS but this is worse currently. Encouraged the patient to continue stretching while he is not in therapy. Patient is having hypotension at times which limits the available increases of baclofen. Spasticity is stable today on exam. Encouraged patient to follow-up with his neurologist as an outpatient who may decide to change baclofen to another agent. Fever: No more fevers after antibiotics were increased by Dr. Evangelista. Complete antibiotics course UTI: UA reviewed. Appreciate Dr. Evangelista's assistance with antibiotics, dosage increased. No more fevers and WBCs have normalized. Have encouraged patient to utilize toilet/urinal versus condom cath. Insomnia: Decreased sleep overnight due to inability to get comfortable. Patient does state that when he attempts to lay on his side that his arm starts spasming and he is not comfortable sleeping on his back. Will trial trazodone Volume depletion: Will monitor occasionally. Variable depending on patient's oral intake. Continue oral intake and monitor Hypokalemia: Replaced with potassium, recheck tomorrow. Magnesium normal monitor for need to replace. Left foot drop: Patient is walking more with therapy. We will likely go ahead and move forward with an AFO. Hopefully this is something that he can continue at home and not rely solely on the motorized wheelchair until his endurance is a limiting factor based on the progression of his MS. Neuropathy: Stable so far on current dose of Lyrica. Continue to monitor and adjust if needed. Constipation: Improving with bowel meds. Continue to monitor and adjust as needed. Variable pattern of bowel movements. Encourage patient to continue taking oral medications. Asthma: Seems to be doing okay currently. We will continue medications and adjust as needed. MS: Patient uncertain of type however states that he [facility] Seems to be a fairly aggressive type with the quickness of his deconditioning. Will concentrate on energy conservation with therapy in order to improve his overall quality of life once he returns home. Will attempt to adjust therapy schedule so that he is getting therapy 7 days a week at slightly reduced amounts of time daily. Telehealth appointment on with neurology revealed that the patient's next injection is scheduled for September. ADL & mobility dysfunction: Continue therapy to improve patient's ability to perform self-care and ADLs as well as improve his mobility and transfers. Patient was able to walk in the hallway utilizing the RW with assistance, decreased ability currently due to weakness on the right side of the body which was unaffected from the stroke. All records, vitals, labs and medications were reviewed. No other issues per patient, nursing or therapy. Objective - Exam Narrative Exam: MUSCULOSKELETAL SPECIALTY EXAM CONSTITUTIONAL: Well developed, well nourished, appropriately groomed. Afebrile currently. RIGHT hand dominant. RESPIRATORY: Clear to auscultation bilaterally, no increased work of breathing CARDIOVASCULAR: Regular Rate/ Rhythm, no swelling, edema or tenderness in BUE or BLE. All extremities warm. GI: + bowel sounds, soft, NTTP, nondistended. INTEGUMENTARY: Normal, no lesion, rash, masses or bruising noted in extremities. MUSCULOSKELETAL: BUE and BLE normal without defect, crepitus, subluxation, effusion, arthritic changes or TTP. R 4+/5 L 1/5 for shoulder abduction, 3/5 at the biceps/triceps, 2/5 parole officer, 1/5 lower extremity ROM within normal limits on the right, decreased on the left Tone normal on the right, increased on the left with variable spasticity. MAS 3/4 LLE & 2/4 LUE NEURO: CN VII : Left facial droop CN XI : Impaired left shoulder shrug, improving CN XII : Tongue protrudes slightly to the left Sensation intact in all extremities without extinction. Sustained clonus left ankle. No tremor noted in 4 extremities. Naming and repetition intact. Follows 2 step commands. Aphasia not appreciated Dysarthria resolved Dysphagia resolved Neglect not appreciated POSTURE and GAIT: Sitting posture fair. Balance and gait fair without assistance to advance LLE, better overall today. PSYCH: Alert, oriented x3, affect appears euthymic. Insight appears intact. - Constitutional Vitals: Vital Signs - 12hr 09/15/21 09/16/21 09/16/21 22:00 04:51 07:40 Temperature 98.6 F Pulse Rate 57 L Respiratory 18 Rate Blood Pressure 126/76 O2 Sat by Pulse 97 100 97 Oximetry - Allied health notes Allied health notes reviewed: nursing, PT, OT FIMS assessment as documented by PT/OT/ST: Locomotion- walk/wheelchair Ambulation Distance 0 - Labs CBC & Chem 7: 09/16/21 07:52 09/14/21 09:53 Labs: Laboratory Results - last 72 hr 09/13/21 09/13/21 09/14/21 09:49 12:34 09:53 WBC 10.3 RBC 4.16 Hgb 11.1 L Hct 32.6 L MCV 78 L MCH 27 L MCHC 34 RDW 14.7 Plt Count 200 Sodium Potassium Chloride Carbon Dioxide Anion Gap BUN Creatinine Estimated GFR BUN/Creatinine Ratio Glucose POC Glucose 93 82 Calcium Magnesium 09/14/21 09/15/21 09/15/21 09:53 08:33 08:33 WBC 8.6 RBC 4.19 Hgb 11.2 L Hct 32.7 L MCV 78 L MCH 27 L MCHC 34 RDW 14.4 Plt Count 204 Sodium 138 Potassium 3.5 L Chloride 104.6 Carbon Dioxide 23 Anion Gap 14 BUN 18 Creatinine 0.7 L Estimated GFR > 60 BUN/Creatinine Ratio 26 Glucose 121 H POC Glucose Calcium 8.7 Magnesium 1.90 09/16/21 07:52 WBC 8.5 RBC 4.22 Hgb 11.3 L Hct 32.9 L MCV 78 L MCH 27 L MCHC 34 RDW 14.8 Plt Count 205 Sodium Potassium Chloride Carbon Dioxide Anion Gap BUN Creatinine Estimated GFR BUN/Creatinine Ratio Glucose POC Glucose Calcium Magnesium Assessment and Plan MCA CVA with left nondominant hemiparesis: Continue Secondary Stroke Prevention (Antithrombotic, Statin (Goal LDL-C <70), BP control (Goal <140/90), GLU control (Goal A1c <7), and lifestyle modification). Monitor for recurrent stroke or post-stroke recrudescence. Continue neuromotor therapy as above. Family training when available. Monitor for post stroke depression, cognitive deficits, seizure, dysphagia, aphasia, shoulder hand syndrome, sensory deficits, spasticity, bowel/bladder deficits, sleep disturbance, vision deficits and DVT. Prognosis for recovery and Secondary Stroke Prevention discussed. Follow up with Neurology. No driving until cleared by Neurologist. Dysarthria: HOME VISITS NURSE has signed off, patient seems to be close to baseline. Dysphagia: HOME VISITS NURSE is signed off, patient's dysphagia has improved and he is able to tolerate regular foods without any signs of aspiration. Continue to monitor for aspiration and reconsult if needed. Spasticity: Continue home baclofen. Look to increase if needed. Continue stretching and teach patient on home stretching program in order to improve ability for range of motion. Patient is performing stretching routines in the room which he states is helping with tone. Due to intermittent hypotension, will be difficult to increase baclofen. We will continue stretching and medication to see if we can improve spasticity. Fever and UTI: UA positive for UTI. Urine culture likely contaminated. Levaquin started after urine culture obtained, dose increased by Dr. Evangelista. Appreciate his assistance. Left foot drop: Continue working with the patient with physical therapy. Will order AFO prior to discharge. Neuropathy: Patient did not tolerate gabapentin previously which has been stopped. Is currently taking Lyrica and will adjust dose as needed. Hypokalemia: Replaced potassium and recheck labs, currently resolved. Monitor PTSD: Patient states that he is stopped seeing psychiatrist at the [facility] and feels like his PTSD is fairly well controlled. He does state that he continues to hav e nightmares at night which do disturb his sleep at times. We did discuss the use of prazosin however the patient does want to defer starting this currently. We will continue to monitor the patient for any signs of PTSD or nightmares interfering with his recovery and will address the issue again as needed. Constipation: Patient states that he can typically go a week or so without a bowel movement. Will schedule bowel meds with hold for loose stools. Insomnia: Trazodone being trialed at a low dose, monitor Asthma: Albuterol tablets not available, have scheduled and as needed nebulizers available. Symbicort is also not on formulary but have ordered our in-house substitute. We will look to reduce this if able. Respiratory consult in place. Multiple sclerosis: Patient recently diagnosed after shelter from the [employer]. Receives injections at the [facility]. Noted some neuropathy, weakness, and altered sensation from the MS prior to the stroke. Telehealth follow-up with outside neurology 09/04 for MS. Endurance is pretty poor and variable Volume depletion: Patient states that he is not eating or drinking as much as he normally does. Continue to monitor and give fluids as needed. Encouraged patient to improve oral intake of fluids. ADL dysfunction: OT will work on improving ability to perform ADLs (including assistive devices) to increase independence and decrease caregiver burden and improve functional transfers and mobility training. Difficulty walking: PT will work on gait training and proper use of assistive devices and advance as appropriate to use of stairs and outside ambulation on uneven surfaces. Unsteadiness on feet: PT will work on improving static and dynamic sitting and standing balance as well as proper use of assistive devices to decrease risk of falls. Abnormality of gait: PT will work to improve safety and efficiency of gait through neuromotor training and gait training along with instruction on proper use of assistive devices. Muscle weakness: PT & OT will work on strengthening exercises to improve functional strength including mixture of closed and open kinetic chain exercises. Debility: PT & OT will work on improving overall functional status to improve participation with ADLs, mobility and social involvement. Fatigue: PT & OT will work on improving endurance through aerobic exercises and therapeutic activity while monitoring patients tolerance for activity and vital signs as needed. DVT ppx: Lovenox Pain: Continue physical modalities in therapy and pain medications as needed to achieve functional pain control. Sleep: Monitor and address as needed. Bowel: Monitor and address as needed. Appetite: Monitor and address as needed. Discharge planning: Pending therapy progress and care plan meeting. Will continue discussion with therapy team, SW, patient and family. Looking to discharge Thursday. Patient will most likely need a hospital bed at discharge in order to allow the patient to receive care with hygiene, improve his ability to transfer out of the bed and into a wheelchair, and adjust positioning in order to reduce risk for bedsores. Restrictions/ Precautions: Falls, aspiration WB status: FWB Functional Hx: ADLs: Needed some assistance Cognition: Independent Mobility: Cane/RW/motorized wheelchair Barriers to Discharge: Decreased mobility and ability to perform self care, balance deficits, weakness Estimated Length of Stay: 1418 days Discharge Destination: Home with family DME: Patient will be discharged with a hospital bed which he needs in order to be able to perform transfers in a safe manner. Due to the patient's weakness from MS as well as the increased weakness and spasticity from the CVA, he is unable to perform transfers from a normal bed and adjustable hospital bed will allow him to utilize rails for bed mobility which will help prevent bedsores as well as improve his ability to transfer out of the bed to the wheelchair. Hospital bed will also allow for improvement in the ability for the caregiver to provide care and helping patient to clean up and dress. Patient has all other DME available including a motorized wheelchair, walker, and cane. At this point with the patient's ongoing issues with fatigue and diagnosis of MS, we are going to concentrate on energy conservation which will also be aided by the use of a hospital bed for changing positions and reducing the amount of effort needed to perform bed to wheelchair transfers. We will also discharged with a drop arm bedside commode and sliding board for transfers
[2021-09-16] MEDS: DOCUSATE SODIUM 100 MG CAP PO SCH ×2 (11:05→21:09)
[2021-09-16] MEDS: CLOPIDOGREL 75 MG TAB PO SCH (11:10)
[2021-09-16] MEDS: MELOXICAM 7.5 MG TAB PO SCH (11:11)
[2021-09-16] MEDS: ASPIRIN EC 81 MG TAB PO SCH (11:11)
[2021-09-16] MEDS: POTASSIUM CHLORIDE ER 20 MEQ TAB PO SCH (11:11)
[2021-09-16] MEDS: CHOLECALCIFEROL (VIT D3) 1000 UNIT (25 mcg) TAB PO SCH (11:11)
[2021-09-16] MEDS: ENOXAPARIN 40 MG/0.4 ML INJ SUB-Q SCH (11:11)
[2021-09-16] MEDS: BACLOFEN 10 MG TAB PO SCH ×3 (11:12→21:09)
[2021-09-16] MEDS: FERROUS SULFATE 325 MG TAB PO SCH (11:12)
[2021-09-16] MEDS: PANTOPRAZOLE 40 MG TAB PO SCH (11:12)
--- NOTE | 2021-09-16 12:26 | Progress Note ---
Assessment and Plan Cultures: Blood culture no growth Urine culture mixed growth A/P: 50-year-old man past medical history multiple sclerosis, recent acute CVA presented for rehab, now with fevers. #Acute sepsis: Present with fevers and leukocytosis. Likely secondary to UTI. #Acute UTI: With significant pyuria and urinalysis, urine cultures negative so far. #Multiple sclerosis: denies any history of UTIs and does not complain of urinary retention. #Acute CVA: now in rehab Recs: -Continue levofloxacin 750 mg daily for 2 more days, can switch to p.o. Carleen Khan MD, FACP [facility] ([facility] O: [phone] F: [phone] Subjective Date of service: 09/16/21 Principal diagnosis: Right MCA CVA with left hemiparesis Interval history: Reports feeling well. Denies any complaints. Food is not tasting as well since he has been on antibiotics. No urinary burning, fever has resolved. Has condom catheter Objective - Exam Narrative Exam: Physical Exam: Constitutional: Alert, cooperative. No acute distress Head, Ears, Nose: Normocephalic, atraumatic. External ears, nose normal Eyes: Conjunctivae/corneas clear. No icterus. No ptosis. Neck: Supple, no meningeal signs Cardiovascular: S1, S2 + Respiratory: Good air entry, clear to auscultation bilaterally GI: Soft, non-tender; bowel sounds normal. No peritoneal signs Musculoskeletal: No pedal edema, no cyanosis. Skin: No rash or abscess Hem/Lymphatic: No palpable cervical or supraclavicular nodes. No lymphangitis Psych: Mood ok. Affect normal Neurological: Awake, alert, oriented. - Constitutional Vitals: Vital Signs Temp Pulse Resp BP Pulse Ox 98.6 F 57 L 18 126/76 97 09/16/21 04:51 09/16/21 04:51 09/16/21 04:51 09/16/21 04:51 09/16/21 07:40 Temperature -Last 24 Hours Temperature 98.6 F Temperature 98.5 F - Labs CBC & Chem 7: 09/16/21 07:52 09/14/21 09:53 Labs: Abnormal lab results 09/16/21 Range/Units 07:52 Hgb 11.3 L (11.8-15.2) gm/dl Hct 32.9 L (35.5-45.6) % MCV 78 L (84-94) fl MCH 27 L (28-32) pg
[2021-09-16] MEDS: traZODone 50 MG TAB PO SCH (21:09)
[2021-09-17 07:21] LABS: Hematocrit 32.8 % (35.5-45.6); Hemoglobin 11.3 gm/dl (11.8-15.2); Mean Corpuscular HGB Conc 34 % (32-34); Mean Corpuscular Volume 78 fl (84-94); Platelet Count 225 K/mm3 (140-440); Red Blood Count 4.21 M/mm3 (3.65-5.03); Red Cell Distribution Width 14.3 % (13.2-15.2)
[2021-09-17 07:41] LABS: Blood Urea Nitrogen 13 mg/dL (9-20); Calcium 8.9 mg/dL (8.4-10.2); Hemolysis Index 6
[2021-09-17 07:46] LABS: BUN/Creatinine Ratio 19
[2021-09-17 08:37] VITALS: BP 110/72
--- NOTE | 2021-09-17 09:48 | Discharge Summary ---
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 Therapy Evaluation and Treat [CONS] Routine Reason For Exam: CVA, Assess/Treat Speech/Cog/Swallow 09/13/21 12:29 Consult to Physician [CONS] Routine Comment: Consulting Provider: LILLI ELLIOTT Physician Instructions: Reason For Exam: UTI/Fever Primary care physician: FORESTRY 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 Initially his symptoms were considered to be related to an MS exacerbation and he was provided with steroids and discharged home. However he returned same day to the ER for repeated issues with continued facial droop. Further work-up with MRI showed an acute right MCA territory lacunar infarct involving the putamen, periventricular white matter and a portion of the posterior limb of the internal capsule. Given his age, hypercoagulable work-up was performed. Patient has moderate dysarthria and dysphagia. He was placed on a soft mechanical diet with thin liquids. Medication should be crushed in pure patient was started on secondary stroke prevention. He tolerated therapy well and was recommended for acute inpatient rehabilitation. After the patient was medically stabilized they were transferred for further rehabilitation. All available medical records have been reviewed. Plan of care was discussed with patient. He also has a history of multiple sclerosis with neuropathy and continues taking Lyrica at baseline as well as baclofen for occasional spasms. The patient ambulates with a cane or walker depending on his ability for the day. He has recently received a motorized wheelchair however is awaiting moving into a home with a mask from the main in order to be able to utilize that. Patient does state that he has issues with constipation. He just retired recently after 20+ years in the [employer] and does have symptoms associated with PTSD, discussed use of praises in for his vivid nightmares however at this point he is wanting to defer starting this medication. Will monitor for any effect his recovery and address again if needed. MCA CVA with left nondominant hemiparesis: Continue Secondary Stroke Prevention (Antithrombotic, Statin (Goal LDL-C <70), BP control (Goal <140/90), GLU control (Goal A1c <7), and lifestyle modification). Monitor for recurrent stroke or post-stroke recrudescence. Continue neuromotor therapy as above. Family training when available. Monitor for post stroke depression, cognitive deficits, seizure, dysphagia, aphasia, shoulder hand syndrome, sensory deficits, spasticity, bowel/bladder deficits, sleep disturbance, vision deficits and DVT. Prognosis for recovery and Secondary Stroke Prevention discussed. Follow up with Neurology. No driving until cleared by Neurologist. Dysarthria: UPHOLSTERER INSIDE has signed off, patient seems to be close to baseline. Dysphagia: UPHOLSTERER INSIDE is signed off, patient's dysphagia has improved and he is able to tolerate regular foods without any signs of aspiration. Continue to monitor for aspiration and reconsult if needed. Spasticity: Continue home baclofen. Look to increase if needed. Continue stretching and train patient on home stretching program in order to improve ability for range of motion. Patient is performing stretching routine in the room which he states is helping with tone. Due to intermittent hypotension, will be difficult to increase baclofen. We will continue stretching and medication to see if we can improve spasticity. Fever and UTI: UA positive for UTI with pyuria. Urine culture likely contaminated. Levaquin started after urine culture obtained, dose increased by Dr. Elliott (ID). Appreciate his assistance. Levaquin IV switched to PO at discharge. Patient has been afebrile since 09/12 Left foot drop: Continue working with the patient with physical therapy. Custom AFO order placed, will need eval and clearance from [place]. Neuropathy: Patient did not tolerate gabapentin previously which has been stopped. Is currently taking Lyrica and will adjust dose as needed. Hypokalemia: Replaced potassium and rechecked labs, currently resolved. Monitor PTSD: Patient states that he has stopped seeing psychiatrist at the [place] and feels like his PTSD is fairly well controlled. He does state that he continues to have nightmares at night which do disturb his sleep at times. We did discuss the use of prazosin however the patient does want to defer starting this currently. We will continue to monitor the patient for any signs of PTSD or nightmares interfering with his recovery and will address the issue again as needed. Would recommend follow up with [place] psychiatrist if nightmares continue to pose a problem with sleep. Constipation: Patient states that he can typically go a week or so without a bowel movement. Scheduled bowel meds with hold for loose stools, seems a little better. Insomnia: Trazodone being trialed at a low dose, monitor. Will d/c at discharge as patient took this intermittently. Asthma: Albuterol tablets not available, have scheduled and as needed nebulizers available. Symbicort is also not on formulary but have ordered our in-house substitute. We will look to reduce this if able. Respiratory consult in place. Did not need inhalers during this admission. PCP may be able to reduce or d/c at follow up. Multiple sclerosis: Patient recently diagnosed after penitentiary from the [employer]. Receives injections at the [place]. Noted some neuropathy, weakness, and altered sensation from the MS prior to the stroke. Telehealth follow-up with outside neurology 09/04 for MS. Endurance is pretty poor and variable. Injection scheduled for September per patient. Would recommend energy conservation methods going forward. Volume depletion: Patient states that he is not eating or drinking as much as he normally does. Continue to monitor and give fluids as needed. Encouraged patient to improve oral intake of fluids. IVF given a couple of times during admission with improvement. ADL & mobility dysfunction: Continue therapy to improve patient's ability to perform self-care and ADLs as well as improve his mobility and transfers. Patient was able to walk in the hallway utilizing the RW and Zachary-walker with assistance. Progress has been variable due to fluctuating weakness on the right side, presumably due to MS. Vital signs at day of discharge: Pulse 57, respiratory rate 16, O2 sats 98% on room air, blood pressure 110/72. 09/17/2021 labs: WBCs 8.1, hemoglobin 11.3, hematocrit 32.8, platelets 225, MCV 78, sodium 136, potassium 3.9, chloride 104.0, carbon oxide 24, BUN 13, creatinine 0.7, glucose 91 Disposition: HOME HEALTH CARE SERVICE Final Discharge Diagnosis (Prints w/discharge instructions): CVA, MS, Left Foot Drop, Spasticity, Left hemiplegia/hemiparesis Time spent for discharge: >30mins Core Measure Documentation - Palliative Care Palliative Care/ Comfort Measures: Not Applicable - Core Measures Any of the following diagnoses?: stroke - Stroke Discharge Requirements Statin for LDL = or >70 mg/dl on DC: Yes Anticoag for atrial fib/atrial flutter: Not Applicable Antithrombotic for ischemic stroke: Yes Exam - Physical Exam Narrative exam: MUSCULOSKELETAL SPECIALTY EXAM CONSTITUTIONAL: Well developed, well nourished, appropriately groomed. Afebrile currently. RIGHT hand dominant. RESPIRATORY: Clear to auscultation bilaterally, no increased work of breathing CARDIOVASCULAR: Regular Rate/ Rhythm, no swelling, edema or tenderness in BUE or BLE. All extremities warm. GI: + bowel sounds, soft, NTTP, nondistended. INTEGUMENTARY: Normal, no lesion, rash, masses or bruising noted in extremities. MUSCULOSKELETAL: BUE and BLE normal without defect, crepitus, subluxation, effusion, arthritic changes or TTP. R 4+/5 L 2/5 for shoulder abduction, 3/5 at the biceps/triceps, 2/5 supervisor cook room, 2/5 lower extremity ROM within normal limits on the right, decreased on the left Tone normal on the right, increased on the left with variable spasticity. MAS 3/4 LLE & 2/4 LUE NEURO: CN VII : Left facial droop CN XI : Impaired left shoulder shrug, improving CN XII : Tongue protrudes slightly to the left Sensation intact in all extremities without extinction. Sustained clonus left ankle. No tremor noted in 4 extremities. Naming and repetition intact. Follows 2 step commands. Aphasia not appreciated Dysarthria resolved Dysphagia resolved Neglect not appreciated POSTURE and GAIT: Sitting posture fair. Balance and gait fair without assistance to advance LLE, better overall PSYCH: Alert, oriented x3, affect appears euthymic. Insight appears intact. - Constitutional Vitals: Temp Pulse Resp BP Pulse Ox 98.8 F 57 L 18 110/72 100 09/17/21 00:35 09/17/21 07:57 09/17/21 00:35 09/17/21 07:57 09/17/21 08:35 Plan Activity: no driving until cleared by PCP, up only with assistance, fall precautions Weight Bearing Status: Full Weight Bearing Diet: low fat, low cholesterol Special Instructions: physical therapy, occupational therapy, home health RN Durable Medical Equipment Needed Upon Discharge: Bedside Commode, Hospital Bed, other (sliding board, AFO) Care Plan Goals: [facility]. Will need a referral for evaluation to have a custom AFO constructed. [facility] additional [facility] Follow up with: PRIMARY CARE, [Primary Care Provider] - 7 Days Prescriptions: AtorvaSTATin [Lipitor] 40 mg PO QHS #14 tablet Docusate Sodium [Colace CAP] 100 mg PO BID PRN 14 Days #28 capsule PRN Reason: Constipation Ferrous Sulfate [Feosol 325 MG tab] 325 mg PO QDAY #14 tablet Aspirin EC [Halfprin EC] 81 mg PO QDAY #14 tablet levoFLOXacin [Levaquin TAB] 750 mg PO Q24HR #2 tablet Baclofen [Lioresal] 10 mg PO TID #42 tablet Clopidogrel [Plavix] 75 mg PO QDAY #14 tablet Pantoprazole [Protonix TAB] 40 mg PO QDAC #14 tablet Cholecalciferol Vit D3 [Vitamin D3 1,000 UNIT TAB] 1,000 unit PO DAILY #14 tablet
[2021-09-17] MEDS ORDERED: levoFLOXacin 750 MG TAB PO SCH (10:00)
[2021-09-17] MEDS: FERROUS SULFATE 325 MG TAB PO SCH (10:16)
[2021-09-17] MEDS: ASPIRIN EC 81 MG TAB PO SCH (10:16)
[2021-09-17] MEDS: ENOXAPARIN 40 MG/0.4 ML INJ SUB-Q SCH (10:16)
[2021-09-17] MEDS: BACLOFEN 10 MG TAB PO SCH (10:16)
[2021-09-17] MEDS: CHOLECALCIFEROL (VIT D3) 1000 UNIT (25 mcg) TAB PO SCH (10:16)
[2021-09-17] MEDS: MELOXICAM 7.5 MG TAB PO SCH (10:16)
[2021-09-17] MEDS: CLOPIDOGREL 75 MG TAB PO SCH (10:16)
[2021-09-17] MEDS: PANTOPRAZOLE 40 MG TAB PO SCH (10:17)
[2021-09-17] MEDS: DOCUSATE SODIUM 100 MG CAP PO SCH (10:17)
== END 2021-09-17 13:00 | disposition home or self-care (01) | DRG 56 ==
LOC: UNDOADMIN 11:54 → 4A 11:54
PROVIDERS: ADMIT Physical Medicine & Rehabilitation; ATTEND Physical Medicine & Rehabilitation
DX: I69.354 Hemiplegia and hemiparesis following cerebral infarction affecting left non-dominant side (principal); I63.9 Cerebral infarction, unspecified; N39.0 Urinary tract infection, site not specified; I69.391 Dysphagia following cerebral infarction; Z88.0 Allergy status to penicillin; G62.9 Polyneuropathy, unspecified; J45.909 Unspecified asthma, uncomplicated; K59.00 Constipation, unspecified; G35 Multiple sclerosis; R13.10 Dysphagia, unspecified; R47.1 Dysarthria and anarthria; R26.81 Unsteadiness on feet; R53.81 Other malaise; F43.10 Post-traumatic stress disorder, unspecified
CPT/HCPCS: 36415; 71045; 80048; 80053; 81001; 82962; 83735; 85007; 85025; 85027; 87040; 87086; 93005; 94640; G0378; J1650; J1956; J7030